=== PATIENT | female | born 1930 | race Caucasian/White ===

== ENCOUNTER 2016-12-06 12:08 | Emergency (ER) | payer MEDICARE, OTHER ==
--- NOTE | 2016-12-06 12:26 | EDM.PDOC ---
ED HPI GENERAL MEDICAL PROBLEM - General Chief Complaint: Lower Extremity Injury/Pain Stated Complaint: LEFT LEG SWEELING AND RED Time Seen by Provider: 12/06/16 12:16 Source of Information: Reports: Patient History Limitations: Reports: No Limitations - History of Present Illness INITIAL COMMENTS - FREE TEXT/NARRATIVE: 85-year-old female presents to the ED to development of a rash on her left lower leg over the last 24 hours. Patient reports that she struck her left upper tibia a few weeks ago in the corridor was born open and struck her in the leg. The area was bruised quite bad Linch Aspercreme on it and seemed to heal up okay. By history she has type 2 diabetes controlled with metformin. She has a history of congestive heart failure. She denies any cough or dyspnea. She takes Lasix 40 mg daily. Onset: Gradual (overthe last twodays.) Duration: Day(s): Location: Reports: Lower Extremity, Left Quality: Reports: Ache Severity: Moderate Improves with: Reports: None Worsens with: Reports: None Context: Denies: Activity, Exercise, Lifting, Sick Contact, Trauma, Other Associated Symptoms: Reports: Other (9i) Treatments [employer]INC[employer]AL: Reports: Other (see below) Left Lower Leg Pain Score (Numeric/FACES): 8 - Related Data Allergies Allergy/AdvReac Type Severity Reaction Status Date / Time JENNIFER Inhibitors Allergy Hives Verified 12/06/16 12:16 codeine Allergy Hallucinati Verified 12/06/16 12:16 ons Sulfa (Sulfonamide Allergy Itching Verified 12/06/16 12:16 Antibiotics) gludovance Allergy Hives Uncoded 11/11/15 09:04 Home Meds: Home Meds Doxazosin [Cardura] 2 mg PO DAILY 11/11/15 [History] Furosemide [Lasix] 40 mg PO DAILY 11/11/15 [History] Irbesartan 300 mg PO DAILY 11/11/15 [History] Naproxen Sodium [Aleve] 220 mg PO DAILY PRN 11/11/15 [History] Omeprazole Magnesium [Prilosec Otc] 20 mg PO DAILY PRN 11/11/15 [History] Potassium Gluconate 99 mg PO DAILY 11/11/15 [History] Sennosides [Senna] 8.6 mg PO DAILY PRN 11/11/15 [History] amLODIPine [Norvasc] 5 mg PO DAILY 11/11/15 [History] metFORMIN [Glucophage XR] 500 mg PO DAILY 11/11/15 [History] ALPRAZolam [Xanax] 0.5 tab PO BEDTIME 12/06/16 [History] Furosemide [Lasix] 40 mg PO DAILY #30 tablet 12/06/16 [Rx] Sertraline [Zoloft] 50 mg PO DAILY 12/06/16 [History] Past Medical History HEENT History: Reports: Impaired Vision Cardiovascular History: Reports: Heart Failure, Heart Murmur (Aortic insufficiency.), Hypertension Respiratory History: Reports: COPD Musculoskeletal History: Reports: Arthritis Endocrine/Metabolic History: Reports: Diabetes, Type II Social & Family History - Tobacco Use Smoking Status *Q: Never Smoker - Recreational Drug Use Recreational Drug Use: No - Living Situation & Occupation Living situation: Reports: ( anniversary today) Occupation: Retired Review of Systems - Review of Systems Review Of Systems: See Below Constitutional: Reports: No Symptoms Eyes: Reports: No Symptoms Ears: Reports: No Symptoms Nose: Reports: No Symptoms Mouth/Throat: Reports: No Symptoms Respiratory: Denies: Shortness of Breath, Wheezing, Pleuritic Chest Pain, Cough Cardiovascular: Reports: Edema (Intermittently her lower extremities but much worse the last 3 days in her legs.). Denies: Chest Pain, Irregular Heart Rate, Lightheadedness, Palpitations, Syncope, Other GI/Abdominal: Reports: No Symptoms Genitourinary: Reports: Other (Frequency) Musculoskeletal: Reports: Back Pain (Occasional pain pain in her back and neck.) Skin: Reports: Other (Skin rash development left lower extremity please see history of present illness) Neurological: Reports: No Symptoms Psychiatric: Reports: No Symptoms Trauma Exam - Physical Exam Exam: See Below Exam Limited By: No Limitations General Appearance: Reports: Alert, WD/WN, Anxious, Mild Distress Head: Reports: Atraumatic, Normocephalic Eyes: Bilateral Eye: Normal Inspection Throat/Mouth: Reports: Normal Inspection, Normal Lips, Normal Oropharynx Neck: Reports: Normal Alignment, Normal Inspection. Denies: Abnormal Alignment , Limited Range of Motion, Muscle Spasm, Painful Range of Motion, Spinous Processes Tender Respiratory Exam: Reports: No Respiratory Distress, Lungs Clear, Normal Breath Sounds, No Accessory Muscle Use, Chest Non-Tender Cardiovascular: Reports: Regular Rate, Rhythm, No Gallop, No Rub, Systolic Murmur (Pansystolic murmur grade 2-3/6 heard best at left lower sternal border compatible with aortic stenosis. Radiates towards the right carotid artery), Other (No pulses are palpable in the lower sternal needed to severe edema). Denies: No Edema GI/Abdominal: Reports: Normal Bowel Sounds, Soft, Non-Tender, No Organomegaly Extremities: Other (She has 4+ pitting edema of the lower extremities up to the knees bilaterally. The rash in the left lower lateral leg is erythematous and macular. It represents ruptured small vessels under the skin with blood appearing to cellulitis. The skin is thick enough that it is almost ready to start oozing clear fluid.) Neurologic: Reports: Alert, Normal Mood/Affect, Oriented x 3 Skin: Reports: Normal Color, Warm/Dry, Other (Multiple small areas of ecchymoses dorsal hands and forearms bilaterally. She reports that she does bruise very easily. Takes a baby aspirin but every third day.) - Tunica Coma Score Best Eye Response (Tunica): (4) Open Spontaneously Best Verbal Response (Tunica): (5) Oriented Best Motor Response (Topher): (6) Obeys Commands Topher Total: 15 Course - Vital Signs Last Recorded V/S: Last Vital Signs Temp 37.2 C 12/06/16 22:53 Pulse 78 12/06/16 22:53 Resp 16 12/06/16 22:53 BP 175/68 H 12/06/16 22:53 Pulse Ox 100 12/06/16 22:53 - Orders/Labs/Meds Labs: Laboratory Tests 12/06/16 12/06/16 12/06/16 Range/Units 13:06 13:06 13:06 WBC 2.91 L (3.98-10.04) K/mm3 RBC 3.25 L (3.98-5.22) M/mm3 Hgb 8.2 L (11.2-15.7) gm/L Hct 26.8 L (34.1-44.9) % MCV 82.5 (79.4-94.8) fl MCH 25.2 L (25.6-32.2) pg MCHC 30.6 L (32.2-35.5) g/dl RDW Std Deviation 48.1 H (36.4-46.3) fL Plt Count 141 L (182-369) K/mm3 MPV 9.7 (9.4-12.3) fl Neutrophils % (Manual) 73 H (40-60) % Band Neutrophils % 0 (0-10) % Lymphocytes % (Manual) 21 (20-40) % Atypical Lymphs % 0 % Monocytes % (Manual) 3 (2-10) % Eosinophils % (Manual) 3 (0.7-5.8) % Basophils % (Manual) 0 L (0.1-1.2) Platelet Estimate Adequate RBC Morph Comment Normal PT (8.0-13.0) SECONDS INR Sodium 140 (136-145) mEq/L Potassium 4.6 (3.5-5.1) mEq/L Chloride 104 (98-107) mEq/L Carbon Dioxide 25 (21-32) mEq/L Anion Gap 15.6 H (5-15) BUN 27 H (7-18) mg/dL Creatinine 1.4 H (0.55-1.02) mg/dL Est Cr Clr Drug Dosing 25.19 mL/min Estimated GFR (MDRD) 36 (>60) mL/min BUN/Creatinine Ratio 19.3 H (14-18) Glucose 98 (83-115) mg/dL Calcium 9.1 (8.5-10.1) mg/dL Total Bilirubin 0.8 (0.2-1.0) mg/dL AST 25 (15-37) U/L ALT 21 (14-59) U/L Alkaline Phosphatase 73 (46-116) U/L C-Reactive Protein < 0.2 (<1.0) mg/dL B-Natriuretic Peptide 206 H (0-100) pg/mL Total Protein 6.8 (6.4-8.2) g/dl Albumin 4.0 (3.4-5.0) g/dl Globulin 2.8 gm/dL Albumin/Globulin Ratio 1.4 (1-2) Blood Type Gel Antibody Screen Crossmatch 12/06/16 12/06/16 Range/Units 13:06 13:06 WBC (3.98-10.04) K/mm3 RBC (3.98-5.22) M/mm3 Hgb (11.2-15.7) gm/L Hct (34.1-44.9) % MCV (79.4-94.8) fl MCH (25.6-32.2) pg MCHC (32.2-35.5) g/dl RDW Std Deviation (36.4-46.3) fL Plt Count (182-369) K/mm3 MPV (9.4-12.3) fl Neutrophils % (Manual) (40-60) % Band Neutrophils % (0-10) % Lymphocytes % (Manual) (20-40) % Atypical Lymphs % % Monocytes % (Manual) (2-10) % Eosinophils % (Manual) (0.7-5.8) % Basophils % (Manual) (0.1-1.2) Platelet Estimate RBC Morph Comment PT 12.2 (8.0-13.0) SECONDS INR 1.11 Sodium (136-145) mEq/L Potassium (3.5-5.1) mEq/L Chloride (98-107) mEq/L Carbon Dioxide (21-32) mEq/L Anion Gap (5-15) BUN (7-18) mg/dL Creatinine (0.55-1.02) mg/dL Est Cr Clr Drug Dosing mL/min Estimated GFR (MDRD) (>60) mL/min BUN/Creatinine Ratio (14-18) Glucose (83-115) mg/dL Calcium (8.5-10.1) mg/dL Total Bilirubin (0.2-1.0) mg/dL AST (15-37) U/L ALT (14-59) U/L Alkaline Phosphatase (46-116) U/L C-Reactive Protein (<1.0) mg/dL B-Natriuretic Peptide (0-100) pg/mL Total Protein (6.4-8.2) g/dl Albumin (3.4-5.0) g/dl Globulin gm/dL Albumin/Globulin Ratio (1-2) Blood Type O POSITIVE Gel Antibody Screen Negative Crossmatch See Detail Meds: Medications Discontinued Medications Generic Name Dose Route Start Last Admin Trade Name Freq PRN Reason Stop Dose Admin Furosemide 40 mg 12/06/16 12:31 12/06/16 13:03 Lasix IVPUSH 12/06/16 12:32 40 mg NOW ONE Administration Furosemide 40 mg 12/06/16 20:00 12/06/16 22:24 Lasix IVPUSH 12/06/16 20:01 40 mg NOW ONE Administration Sodium Chloride Confirm 12/06/16 15:43 Normal Saline Administered 12/06/16 15:44 Dose 1,000 mls @ as directed .ROUTE .STK-MED ONE Sodium Chloride 10 ml 12/06/16 12:31 12/06/16 13:05 Saline Flush FLUSH 10 ml ASDIRECTED PRN Administration Keep Vein Open - Radiology Interpretation Free Text/Narrative:: 84-year-old female who appears younger than her stated age presents the ED due to development of the erythematous burning rash lateral aspect of her left lower leg over the last 24 hours. She reports feeling something grossly edematous for the last 3-4 days. States usually they go down when she goes to bed. She states it depends how long she is standing or sitting but they are always somewhat swollen. She denies development of any chest pain cough or shortness of breath. No recent changes in any of her medications. Diabetes is type II controlled with metformin and sugars have been good. Lungs are clear to auscultation. She does have aortic stenosis on exam grade 2-3 systolic murmur. Padding 4+ pitting edema of the lower extremities to the knees bilaterally. Plan peripheral IV lock Lasix 40 mg IV. Routine labs including cardiac markers to be done. Renal function needs to be assessed including serum potassium. - Re-Assessments/Exams Free Text/Narrative Re-Assessment/Exam: 12/06/16 14:01 labs are finally back. White count is low at 2.91 with 73% neutrophils no bands reported hemoglobin is low at 8.2 with hematocrit of 26.8. MCV is normal at 82.6. Platelets are normal 141,000. PT is 12.2 INR is 1.11. Chemistry shows a sodium of 140 potassium 4.6. Chloride 14 bicarbonate 25. Anion gap is 15.6. BUN is 27 Preddy 1.4 EGFR is 36 i.e. stage III chronic kidney disease of infection is 4.0 CRP is less than 0.2 total protein is 6.8. We therefore have a leukopenia with anemia suggesting possibility of bone marrow failure. 12/06/16 14:18 discussed the findings with the patient and she is willing to accept blood transfusion. Her is quite elderly and she needs to care for him. Therefore decision will be made as to when she might have 2 packs or 2 units of blood transfused. I will crossmatch at this time any to be done today or later this week. Further investigations will need to be done to sort out the cause of her anemia. 12/06/16 14:24 patient has arranged care of her elderly at home. She will therefore be given 2 units of packed cells as an as they become available each over 2 hours with Lasix 40 mg IV after the second unit has been infused. 12/06/16 17:29: Is about 20 minutes and her first unit of packed cells without any problems. 12/06/16 18:50 is still on her first unit of packed cells. It is just about done. I will write her discharge notes for after completing the second unit of packed RBCs and discussed case with Dr. Bernstein as it is change of shift. He will intervene only if there is any problems with the blood transfusion itself the Departure - Departure Time of Disposition: 22:50 Disposition: Home, Self-Care 01 Condition: fair Clinical Impression: Dependent edema, Acute venous stasis dermatitis of left lower extremity, CHF ( congestive heart failure), NYHA class II Anemia Qualifiers: Anemia type: unspecified type Qualified Code(s): D64.9 - Anemia, unspecified Leukopenia Qualifiers: Leukopenia type: unspecified Qualified Code(s): D72.819 - Decreased white blood cell count, unspecified - Discharge Information Prescriptions: Furosemide [Lasix] 40 mg PO DAILY #30 tablet Instructions: Blood Transfusion, [id number], Edema Referrals: Joslyn Alaniz MD [Primary Care Provider] - Forms: ED Department Discharge Additional Instructions: Evaluation in the emergency room today in regards to marked swelling of your lower extremities and development of a rash on the outer lower aspect of her left leg. The rash is secondary to broken blood vessels under the skin in the left leg due to the amount of fluid squishing the vessels in the leg. You have what we call 4+ pitting edema of the lower sternum these. Lab work identified some problems particularly with low blood count at 8.2. It also identified a low white blood cell count at 2.9. This is worrisome for possible problems with your bone marrow been able to make appropriate amount of white blood cells and red cells. You were given Lasix 40 mg intravenously twice during her stay to help clear some of the fluid from her legs which will improve her rash. He also were given 2 units of red blood cells to bring her hemoglobin up to around 10. Note normal is 14-15. You require further investigations as to why you've is low. Please follow up with her personal doctor later this week so that appropriate tests can be carried out. One make sure that you're not losing blood through the GI tract this is bone marrow not working as well as it should. You need to take Lasix medication 40 mg twice daily every morning and mid afternoon ( 3pm) to help get rid of the excess fluid in your legs. At this time it does not appear that you need a potassium supplement but your doctor will assess this as time goes on since water medications make the kidneys lose more potassium than normal. Sometimes we have to take a potassium supplement. You will likely lose close to 10 pounds over the next 7-10 days. The rash on the left leg will improve slowly as the swelling goes down. Your doctor will follow this along as well.
[2016-12-06] MEDS ORDERED: Furosemide 40 MG/4 ML VIAL IVPUSH ONE ×2 (12:31→20:00)
[2016-12-06] MEDS ORDERED: Sodium Chloride 0.9% 10 ML Syringe FLUSH PRN (12:31)
[2016-12-06] MEDS ORDERED: Sodium Chloride 0.9% 1,000 ML ONE (15:43)
[2016-12-06 22:27] VITALS: BP 175/68
== END 2016-12-06 22:30 | disposition home or self-care (01) ==
LOC: JD.ED 12:08
DX: I87.2 Venous insufficiency (chronic) (peripheral) (principal); I11.0 Hypertensive heart disease with heart failure; I50.9 Heart failure, unspecified; D64.9 Anemia, unspecified; D72.819 Decreased white blood cell count, unspecified; J44.9 Chronic obstructive pulmonary disease, unspecified; E11.9 Type 2 diabetes mellitus without complications; Z88.5 Allergy status to narcotic agent; Z88.8 Allergy status to other drugs, medicaments and biological substances; Z79.899 Other long term (current) drug therapy; Z88.2 Allergy status to sulfonamides; Z79.84 Long term (current) use of oral hypoglycemic drugs
CPT/HCPCS: 36415; 36430; 80053; 83880; 85025; 85610; 86140; 86850; 86900; 86901; 86922; 96374; 96376; 99284; J1940; J7050; P9016

== ENCOUNTER 2019-03-28 19:04 | Inpatient (IN) | payer MEDICARE, OTHER ==
[2019-03-28] MEDS ORDERED: Furosemide 40 MG/4 ML VIAL IVPUSH ONE ×2 (19:34→21:31)
--- NOTE | 2019-03-28 19:36 | EDM.PDOC ---
ED HPI GENERAL MEDICAL PROBLEM - General Chief Complaint: Respiratory Problem Stated Complaint: SHORT OF BREATH Time Seen by Provider: 03/28/19 19:25 Source of Information: Reports: Patient, Family (daughter), RN History Limitations: Reports: Respiratory Distress - History of Present Illness INITIAL COMMENTS - FREE TEXT/NARRATIVE: 88-year-old female presents to the ED deep to gradually worsening dyspnea over the last 3-4 days. Is 2 weeks post double bypass surgery with open heart surgery. She was found has significant coronary disease and was being investigated for her heart in preparation for total knee replacement. Apparently she had a bee pastry about 6 hours postoperatively. She is on metoprolol 37.5 mg once daily. She is currently not on any diuretics. Denies cough or sputum production. Some chills but no defined fever. Bringing up any sputum. It is poor. His abdomen is distended. She has been placed on oxygen over last 4-5 days and is currently on 2 L/m all times. 3 L if she does anything like it up to the bathroom and get back to bed for a period of time. Is appreciated that her legs are starting to swell a bit as well the last few days. She is not wearing compression stockings. They utilize the left greater saphenous vein for grafting. The wounds along the medial aspect of the distal thigh or losing serous fluid. Has marked orthopnea. He said to sleep sitting up the last 2 days. Onset: Gradual Onset Date: 03/24/19 Duration: Day(s):, Constant, Getting Worse Location: Reports: Chest (Shortness of breath. Marked orthopnea) Quality: Reports: Other Severity: Severe (Severe dyspnea with orthopnea) Improves with: Reports: Rest Worsens with: Reports: Movement (Any movement causes desaturation and severe) Context: Denies: Activity, Exercise ( worsening of her dyspnea.), Lifting, Sick Contact, Trauma, Other Associated Symptoms: Reports: Chest Pain (Only at the site of her mid), Cough, Fever/Chills ( sternal wound.), Loss of Appetite ( chills but no fever ), Malaise, Nausea/Vomiting, Shortness of Breath. 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: Other (see below) (Only prescribed medications.) Bilateral Back Pain Score (Numeric/FACES): 4 - Related Data Allergies Allergy/AdvReac Type Severity Reaction Status Date / Time JENNIFER Inhibitors Allergy Hives Verified 03/28/19 23:23 Sulfa (Sulfonamide Allergy Itching Verified 03/28/19 23:23 Antibiotics) codeine AdvReac Hallucinati Verified 03/28/19 23:23 ons gludovance Allergy Hives Uncoded 03/28/19 23:23 Home Meds: Home Meds Acetaminophen [Pain & Fever] 650 mg PO Q6H PRN 03/28/19 [History] Acetaminophen/HYDROcodone [[place] 325-5 MG] 1 tab PO Q4H PRN 03/28/19 [History] Aspirin [Adult Low Dose Aspirin EC] 81 mg PO DAILY 03/28/19 [History] Cephalexin [Keflex] 250 mg PO TID 03/28/19 [History] Cholecalciferol (Vitamin D3) [Vitamin D3] 5,000 unit PO DAILY 03/28/19 [History] Furosemide [Lasix] 60 mg PO DAILY 03/28/19 [History] Melatonin 3 - 9 mg PO BEDTIME PRN 03/28/19 [History] Metoprolol Tartrate [Lopressor] 37.5 mg PO Q12HR 03/28/19 [History] Nitroglycerin 0.4 mg SL ASDIRECTED PRN 03/28/19 [History] Potassium Chloride 20 meq PO Q2D 03/28/19 [History] Probiotic Advanced. 10 mg PO DAILY 03/28/19 [History] Sennosides [Senna] 8.6 - 17.2 mg PO DAILY PRN 03/28/19 [History] amLODIPine [Norvasc] 5 mg PO DAILY 03/28/19 [History] guaiFENesin [Mucinex] 600 mg PO DAILY PRN 03/28/19 [History] Past Medical History HEENT History: Reports: Impaired Vision Cardiovascular History: Reports: Bypass ( 2 weeks ago in [place] CAD ( Underwent double bypass i.e. CABG), Heart Failure, Heart Murmur, Hypertension Respiratory History: Reports: COPD Musculoskeletal History: Reports: Arthritis Endocrine/Metabolic History: Reports: Diabetes, Type II - Past Surgical History GI Surgical History: Reports: Appendectomy, Cholecystectomy Social & Family History - Family History HEENT: Reports: Impaired Vision Cardiac: Reports: High Cholesterol, Hypertension Endocrine/Metabolic: Reports: Diabetes, type II Oncologic: Reports: Colon - Tobacco Use Smoking Status *Q: Never Smoker Second Hand Smoke Exposure: No - Caffeine Use Caffeine Use: Reports: None - Recreational Drug Use Recreational Drug Use: No - Living Situation & Occupation Living situation: Reports: (40th wedding anniversary today) Occupation: Retired ED ROS GENERAL - Review of Systems Review Of Systems: See Below Constitutional: Reports: Chills, Malaise, Weakness, Fatigue, Decreased Appetite , Weight Loss. Denies: Fever HEENT: Reports: Glasses Respiratory: Reports: Shortness of Breath, Cough. Denies: Wheezing, Pleuritic Chest Pain Cardiovascular: Reports: Chest Pain (Nonproductive central chest pain at the site of her mid sternotomy wound.) Endocrine: Reports: Fatigue GI/Abdominal: Reports: Constipation, Decreased Appetite. Denies: Abdominal Pain : Reports: Frequency, Other (Some incontinence both stress and urgency components.) Musculoskeletal: Reports: Joint Pain (Bilateral knee pain. Scheduled for total knee replacement which he heals up from her heart surgery.), Other Skin: Reports: Bruising (Has bad hips low back pain and occasional neck pain and shoulder pain. Ecchymotic areas upper extremities from IV sticks. Currently only on aspirin.) Neurological: Reports: No Symptoms Psychiatric: Reports: No Symptoms Hematologic/Lymphatic: Reports: No Symptoms ED EXAM, GENERAL - Physical Exam Exam: See Below Exam Limited By: No Limitations General Appearance: Alert, WD/WN, Moderate Distress (Moderate respiratory distress.), Other (Vitals show temperature 36.8 with a pulse of 77. Respiratory is 23-28/m BP 146/78 sats 95% on 2 L.) Eye Exam: Bilateral Eye: Other (Mild blepharal pallor bilaterally.) Throat/Mouth: Normal Inspection, Normal Lips, Normal Oropharynx, Other Head: Atraumatic, Normocephalic (Tongue is mildly dry and coated.) Neck: Normal Inspection, Limited Range of Motion (Decreased range of motion.), Tender Lateral. No: Supple Respiratory/Chest: No Accessory Muscle Use (S3 muscle use.), Respiratory Distress (Tachypnea 25-26/m.), Decreased Breath Sounds (Decreased breath sounds to the lower 30% of lung [place] bilaterally with dullness to percussion on both sides suggesting bilateral pleural effusions.), Rales (Few rales appreciated in bases.), Other (Midline sternotomy wound appears to be healing regularly.). No : Lungs Clear, Normal Breath Sounds, Wheezing Cardiovascular: Regular Rate, Rhythm, No Gallop, No Murmur, No Rub, Other ( Trace edema both lower extremities). No: Normal Peripheral Pulses, No Edema Peripheral Pulses: 1+: Posterior Tibial (L), Posterior Tibial (R), Dorsalis Pedis (L), Dorsalis Pedis (R), 2+: Carotid (L), Carotid (R) GI/Abdominal: Soft, Non-Tender, No Organomegaly, Distended (Compatible with aerophagia.), Abnormal Bowel Sounds Back Exam: Other (Mild kyphosis thoracic spine.) Extremities: Non-Tender, Pedal Edema. No: No Pedal Edema Neurological: Alert, Oriented (Trace pitting edema around the ankles. 1+ only), CN II-XII Intact, Normal Cognition, No Motor/Sensory Deficits Psychiatric: Anxious, Other (Working hard to breathe.) Skin Exam: Warm, Dry, Intact, Normal Color, Ecchymosis (Patches of ecchymoses both upper extremities from recent IV sticks. Also noted on the abdominal wall.) EKG INTERPRETATION EKG Date: 03/28/19 Time: 19:41 Rhythm: NSR Rate (Beats/Min): 72 [place]: RAD-Right [place] Deviation (145) QRS: Other (Patient has a right bundle branch block pattern in the left posterior fascicular block pattern. I 2 fascicles out of 3. Was decreased voltage throughout the precordial leads. There is a Q-wave in V1 and V2 consider posterior wall infarct.) ST-T: Other (T-wave inversion in V3 to V6 cannot rule out ischemia.) QT: Prolonged (Mildly prolonged) EKG Interpretation Comments: Abnormal ECG Course - Vital Signs Last Recorded V/S: Last Vital Signs Temp 36.3 C 03/29/19 04:00 Pulse 68 03/28/19 21:42 Resp 21 H 03/29/19 04:00 BP 133/60 03/29/19 04:00 Pulse Ox 90 L 03/29/19 04:20 - Orders/Labs/Meds Orders: Active Orders 24 hr Category Date Time Status Admission Status [Patient Status] [ADT] Routine ADT 03/28/19 21:29 Active Antiembolic Devices [RC] PER UNIT ROUTINE Care 03/28/19 21:43 Active Cardiac Monitoring [RC] CONTINUOUS Care 03/28/19 21:42 Active EKG Documentation Completion [RC] STAT Care 03/28/19 19:31 Active Height and Weight [RC] 04 Care 03/28/19 21:41 Active Intake and Output [RC] 04,16 Care 03/28/19 21:42 Active Oxygen Therapy [RC] PRN Care 03/28/19 21:41 Active Pulse Oximetry [RC] CONTINUOUS Care 03/28/19 21:43 Active RT Aerosol Therapy [RC] ASDIRECTED Care 03/28/19 21:44 Active Up With Assistance [RC] ASDIRECTED Care 03/28/19 21:41 Active VTE/DVT Education [RC] QSHIFT Care 03/28/19 21:41 Active Vital Signs [RC] Q4HR Care 03/28/19 21:41 Active Consult to Case Management/Guidance Adviser [CONS] Cons 03/28/19 21:41 Active Routine Consult to Spiritual Care [CONS] Routine Cons 03/28/19 21:41 Active OT Evaluation and Treatment [CONS] Routine Cons 03/28/19 21:41 Active PT Evaluation and Treatment [CONS] Routine Cons 03/28/19 21:41 Active Respiratory Care Assess and Treatment [CONS] Routine Cons 03/28/19 21:41 Active Consistent Carbohydrate Diet [DIET] Diet 03/28/19 Breakfast Active Heart Healthy Diet [DIET] Diet 03/28/19 Breakfast Active Chest 1V Frontal [CR] Stat Exams 03/28/19 19:31 Taken A1C [GLYCOSYLATED HEMOGLOBIN,HGBA1C] [CHEM] AM Lab 03/29/19 05:11 Ordered BASIC METABOLIC PANEL,BMP [CHEM] AM Lab 03/29/19 05:11 Ordered BASIC METABOLIC PANEL,BMP [CHEM] AM Lab 03/30/19 05:11 Ordered BASIC METABOLIC PANEL,BMP [CHEM] AM Lab 03/31/19 05:11 Ordered BASIC METABOLIC PANEL,BMP [CHEM] AM Lab 04/01/19 05:11 Ordered BASIC METABOLIC PANEL,BMP [CHEM] AM Lab 04/02/19 05:11 Ordered C-REACTIVE PROTEIN [CHEM] AM Lab 03/29/19 05:11 Ordered C-REACTIVE PROTEIN [CHEM] AM Lab 03/30/19 05:11 Ordered C-REACTIVE PROTEIN [CHEM] AM Lab 03/31/19 05:11 Ordered C-REACTIVE PROTEIN [CHEM] AM Lab 04/01/19 05:11 Ordered C-REACTIVE PROTEIN [CHEM] AM Lab 04/02/19 05:11 Ordered CBC WITH AUTO DIFF [HEME] AM Lab 03/29/19 05:11 Ordered CBC WITH AUTO DIFF [HEME] AM Lab 03/30/19 05:11 Ordered CBC WITH AUTO DIFF [HEME] AM Lab 03/31/19 05:11 Ordered CBC WITH AUTO DIFF [HEME] AM Lab 04/01/19 05:11 Ordered CBC WITH AUTO DIFF [HEME] AM Lab 04/02/19 05:11 Ordered CULTURE BLOOD [BC] Stat Lab 03/28/19 19:35 Ordered CULTURE BLOOD [BC] Stat Lab 03/28/19 19:35 Ordered CULTURE SPUTUM + SMEAR [RM] Stat Lab 03/28/19 21:41 Ordered MAGNESIUM [CHEM] AM Lab 03/29/19 05:11 Ordered MAGNESIUM [CHEM] AM Lab 03/30/19 05:11 Ordered MAGNESIUM [CHEM] AM Lab 03/31/19 05:11 Ordered MAGNESIUM [CHEM] AM Lab 04/01/19 05:11 Ordered MAGNESIUM [CHEM] AM Lab 04/02/19 05:11 Ordered Acetaminophen [Tylenol] Med 03/28/19 21:28 Active 650 mg PO Q6H PRN Acetaminophen/HYDROcodone [[place] 325-5 MG] Med 03/28/19 21:28 Active 1 tab PO Q4H PRN Albuterol/Ipratropium [DuoNeb 3.0-0.5 MG/3 ML] Med 03/28/19 21:41 Active 3 ml NEB Q4H PRN Azithromycin [Zithromax] Med 03/29/19 09:00 Active 250 mg PO DAILY Bisacodyl [Dulcolax] Med 03/28/19 21:41 Active 5 mg PO DAILY PRN Cholecalciferol (Vitamin D3) [Vitamin D3] Med 03/29/19 09:00 Active 5,000 unit PO DAILY Docusate Sodium [Colace] Med 03/28/19 21:41 Active 100 mg PO BID PRN Docusate Sodium/Sennosides [Senna Plus] Med 03/28/19 21:41 Active 1 tab PO BID PRN Furosemide [Lasix] Med 03/29/19 09:00 Active 60 mg PO DAILY HYDROmorphone [Dilaudid] Med 03/28/19 21:41 Active 0.25 mg IVPUSH Q2H PRN LORazepam [Ativan] Med 03/28/19 21:40 Active 0.5 mg IVPUSH Q4H PRN LORazepam [Ativan] Med 03/28/19 21:40 Active 2 mg IVPUSH Q4H PRN Melatonin Med 03/28/19 21:45 Active 3 - 9 mg PO BEDTIME PRN Metoprolol Tartrate [Lopressor] Med 03/29/19 09:00 Active 37.5 mg PO Q12HR Nitroglycerin [Nitrostat] Med 03/28/19 21:28 Active 0.4 mg SL ASDIRECTED PRN Ondansetron [Zofran] Med 03/28/19 21:41 Active 4 mg IV Q6H PRN Pantoprazole [ProTONIX IV] Med 03/29/19 07:30 Active 40 mg IV Q12H Polyethylene Glycol 3350 [MiraLAX] Med 03/28/19 21:41 Active 17 gm PO DAILY PRN Potassium Chloride [Klor-Con M20] Med 04/02/19 21:30 Active 20 meq PO Q2D Promethazine [Phenergan] 6.25 mg Med 03/28/19 21:41 Active Sodium Chloride 0.9% [Normal Saline] 50 ml IV Q6H Saccharomyces Boulardii [Florastor] Med 03/29/19 09:00 Active 250 mg PO DAILY Sennosides [Senna] Med 03/28/19 21:28 Active 8.6 - 17.2 mg PO DAILY PRN Sodium Chloride 0.9% [Saline Flush] Med 03/28/19 19:33 Active 10 ml FLUSH ASDIRECTED PRN Temazepam [Restoril] Med 03/28/19 21:39 Active 7.5 mg PO BEDTIME PRN amLODIPine [Norvasc] Med 03/29/19 09:00 Active 5 mg PO DAILY cephALEXin [Keflex] Med 03/28/19 21:45 Active 250 mg PO TID guaiFENesin [Mucinex] Med 03/28/19 21:28 Active 600 mg PO DAILY PRN Blood Culture x2 Reflex Set [OM.PC] Stat Oth 03/28/19 19:34 Ordered Peripheral IV Insertion Adult [OM.PC] Stat Oth 03/28/19 19:33 Ordered Sequential Compression Device [OM.PC] Per Unit Routine Oth 03/28/19 21:43 Ordered Resuscitation Status Routine Resus Stat 03/28/19 21:41 Ordered Medication Orders Acetaminophen (Tylenol) 650 mg PO Q6H PRN PRN Reason: Pain (mild 1-3) Hydrocodone Bitart/Acetaminophen ([place] 325-5 Mg) 1 tab PO Q4H PRN PRN Reason: Pain (moderate 4-6) Albuterol/Ipratropium (Duoneb 3.0-0.5 Mg/3 Ml) 3 ml NEB Q4H PRN PRN Reason: Shortness Of Breath/wheezing Last Admin: 03/29/19 04:20 Dose: 3 ml Amlodipine Besylate (Norvasc) 5 mg PO DAILY [facility] Azithromycin (Zithromax) 250 mg PO DAILY [facility] Bisacodyl (Dulcolax) 5 mg PO DAILY PRN PRN Reason: Constipation Cephalexin (Keflex) 250 mg PO TID [facility] Last Admin: 03/28/19 22:45 Dose: 250 mg Cholecalciferol (Vitamin D3) 5,000 unit PO DAILY [facility] Docusate Sodium (Colace) 100 mg PO BID PRN PRN Reason: Constipation Furosemide (Lasix) 60 mg PO DAILY [facility] Guaifenesin (Mucinex) 600 mg PO DAILY PRN PRN Reason: Cough Hydromorphone HCl (Dilaudid) 0.25 mg IVPUSH Q2H PRN PRN Reason: Pain (severe 7-10) Promethazine HCl 6.25 mg/ (Sodium Chloride) 50.25 mls @ 100 mls/hr IV Q6H PRN PRN Reason: Nausea/Vomiting Lorazepam (Ativan) 2 mg IVPUSH Q4H PRN PRN Reason: Seizures Lorazepam (Ativan) 0.5 mg IVPUSH Q4H PRN; Protocol PRN Reason: Anxiety Last Admin: 03/28/19 22:46 Dose: 0.5 mg Melatonin (Melatonin) 3 - 9 mg PO BEDTIME PRN PRN Reason: Sleep Last Admin: 03/29/19 00:28 Dose: 9 mg Metoprolol Tartrate (Lopressor) 37.5 mg PO Q12HR [facility] Morphine Sulfate (Morphine) 0.5 mg IVPUSH Q4H PRN PRN Reason: Dyspnea Last Admin: 03/29/19 00:45 Dose: 0.5 mg Nitroglycerin (Nitrostat) 0.4 mg SL ASDIRECTED PRN PRN Reason: Chest Pain Ondansetron HCl (Zofran) 4 mg IV Q6H PRN PRN Reason: Nausea/Vomiting Pantoprazole Sodium (Protonix Iv) 40 mg IV Q12H [facility] Polyethylene Glycol (Miralax) 17 gm PO DAILY PRN PRN Reason: Constipation Potassium Chloride (Klor-Con M20) 20 meq PO Q2D [facility] Saccharomyces Boulardii (Florastor) 250 mg PO DAILY [facility] Senna (Senna) 8.6 - 17.2 mg PO DAILY PRN PRN Reason: Constipation Senna/Docusate Sodium (Senna Plus) 1 tab PO BID PRN PRN Reason: Constipation Sodium Chloride (Saline Flush) 10 ml FLUSH ASDIRECTED PRN PRN Reason: Keep Vein Open Last Admin: 03/28/19 20:04 Dose: 10 ml Temazepam (Restoril) 7.5 mg PO BEDTIME PRN PRN Reason: Insomnia Last Admin: 03/28/19 22:45 Dose: 7.5 mg Labs: Laboratory Tests 03/28/19 03/28/19 03/28/19 Range/Units 19:42 19:42 19:42 WBC 7.61 (3.98-10.04) K/mm3 RBC 3.76 L (3.98-5.22) M/mm3 Hgb 10.8 L (11.2-15.7) gm/L Hct 32.8 L (34.1-44.9) % MCV 87.2 D (79.4-94.8) fl MCH 28.7 (25.6-32.2) pg MCHC 32.9 (32.2-35.5) g/dl RDW Std Deviation 44.3 (36.4-46.3) fL Plt Count 348 D (182-369) K/mm3 MPV 8.7 L (9.4-12.3) fl Neutrophils % (Manual) 90 H (40-60) % Band Neutrophils % 0 (0-10) % Lymphocytes % (Manual) 4 L (20-40) % Atypical Lymphs % 0 % Monocytes % (Manual) 5 (2-10) % Eosinophils % (Manual) 1 (0.7-5.8) % Basophils % (Manual) 0 L (0.1-1.2) Platelet Estimate Adequate Anisocytosis 1+ slight PT 12.4 H (9.7-12.0) SECONDS INR 1.15 APTT 28 (22-31) SECONDS Sodium 134 L (136-145) mEq/L Potassium 5.2 H (3.5-5.1) mEq/L Chloride 97 L (98-107) mEq/L Carbon Dioxide 27 (21-32) mEq/L Anion Gap 15.2 H (5-15) BUN 81 H D (7-18) mg/dL Creatinine 1.9 H (0.55-1.02) mg/dL Est Cr Clr Drug Dosing 17.58 mL/min Estimated GFR (MDRD) 25 (>60) mL/min BUN/Creatinine Ratio 42.6 H (14-18) Glucose 150 H (83-115) mg/dL Lactic Acid (0.4-2.0) mmol/L Calcium 8.5 (8.5-10.1) mg/dL Magnesium 2.8 H (1.8-2.4) mg/dl Total Bilirubin 0.9 (0.2-1.0) mg/dL AST 25 (15-37) U/L ALT 17 (14-59) U/L Alkaline Phosphatase 112 (46-116) U/L CK-MB (CK-2) 3.7 H (0-3.6) ng/ml Troponin I 0.021 (0.00-0.056) ng/mL C-Reactive Protein 11.8 H* (<1.0) mg/dL NT-Pro-B Natriuret Pep (0-450) pg/mL Total Protein 6.8 (6.4-8.2) g/dl Albumin 2.9 L (3.4-5.0) g/dl Globulin 3.9 gm/dL Albumin/Globulin Ratio 0.7 L (1-2) Blood Type Gel Antibody Screen 03/28/19 03/28/19 03/28/19 Range/Units 19:42 19:42 19:42 WBC (3.98-10.04) K/mm3 RBC (3.98-5.22) M/mm3 Hgb (11.2-15.7) gm/L Hct (34.1-44.9) % MCV (79.4-94.8) fl MCH (25.6-32.2) pg MCHC (32.2-35.5) g/dl RDW Std Deviation (36.4-46.3) fL Plt Count (182-369) K/mm3 MPV (9.4-12.3) fl Neutrophils % (Manual) (40-60) % Band Neutrophils % (0-10) % Lymphocytes % (Manual) (20-40) % Atypical Lymphs % % Monocytes % (Manual) (2-10) % Eosinophils % (Manual) (0.7-5.8) % Basophils % (Manual) (0.1-1.2) Platelet Estimate Anisocytosis PT (9.7-12.0) SECONDS INR APTT (22-31) SECONDS Sodium (136-145) mEq/L Potassium (3.5-5.1) mEq/L Chloride (98-107) mEq/L Carbon Dioxide (21-32) mEq/L Anion Gap (5-15) BUN (7-18) mg/dL Creatinine (0.55-1.02) mg/dL Est Cr Clr Drug Dosing mL/min Estimated GFR (MDRD) (>60) mL/min BUN/Creatinine Ratio (14-18) Glucose (83-115) mg/dL Lactic Acid 1.0 (0.4-2.0) mmol/L Calcium (8.5-10.1) mg/dL Magnesium (1.8-2.4) mg/dl Total Bilirubin (0.2-1.0) mg/dL AST (15-37) U/L ALT (14-59) U/L Alkaline Phosphatase (46-116) U/L CK-MB (CK-2) (0-3.6) ng/ml Troponin I (0.00-0.056) ng/mL C-Reactive Protein (<1.0) mg/dL NT-Pro-B Natriuret Pep 9032 H (0-450) pg/mL Total Protein (6.4-8.2) g/dl Albumin (3.4-5.0) g/dl Globulin gm/dL Albumin/Globulin Ratio (1-2) Blood Type O POSITIVE Gel Antibody Screen Negative Meds: Medications Generic Name Dose Route Start Last Admin Trade Name Freq PRN Reason Stop Dose Admin Acetaminophen 650 mg 03/28/19 21:28 Tylenol PO Q6H PRN Pain (mild 1-3) Hydrocodone Bitart/Acetaminophen 1 tab 03/28/19 21:28 [place] 325-5 Mg PO Q4H PRN Pain (moderate 4-6) Albuterol/Ipratropium 3 ml 03/28/19 21:41 03/29/19 04:20 Duoneb 3.0-0.5 Mg/3 Ml NEB 3 ml Q4H PRN Administration Shortness Of Breath/wheezing Amlodipine Besylate 5 mg 03/29/19 09:00 Norvasc PO DAILY [facility] Azithromycin 250 mg 03/29/19 09:00 Zithromax PO DAILY [facility] Bisacodyl 5 mg 03/28/19 21:41 Dulcolax PO DAILY PRN Constipation Cephalexin 250 mg 03/28/19 21:45 03/28/19 22:45 Keflex PO 250 mg TID [facility] Administration Cholecalciferol 5,000 unit 03/29/19 09:00 Vitamin D3 PO DAILY [facility] Docusate Sodium 100 mg 03/28/19 21:41 Colace PO BID PRN Constipation Furosemide 60 mg 03/29/19 09:00 Lasix PO DAILY [facility] Guaifenesin 600 mg 03/28/19 21:28 Mucinex PO DAILY PRN Cough Hydromorphone HCl 0.25 mg 03/28/19 21:41 Dilaudid IVPUSH Q2H PRN Pain (severe 7-10) Promethazine HCl 6.25 mg/ 50.25 mls @ 100 mls/hr 03/28/19 21:41 Sodium Chloride IV Q6H PRN Nausea/Vomiting Lorazepam 2 mg 03/28/19 21:40 Ativan IVPUSH Q4H PRN Seizures Lorazepam 0.5 mg 03/28/19 21:40 03/28/19 22:46 Ativan IVPUSH 0.5 mg Q4H PRN Administration Anxiety Protocol Melatonin 3 - 9 mg 03/28/19 21:45 03/29/19 00:28 Melatonin PO 9 mg BEDTIME PRN Administration Sleep Metoprolol Tartrate 37.5 mg 03/29/19 09:00 Lopressor PO Q12HR [facility] Morphine Sulfate 0.5 mg 03/28/19 22:03 03/29/19 00:45 Morphine IVPUSH 0.5 mg Q4H PRN Administration Dyspnea Nitroglycerin 0.4 mg 03/28/19 21:28 Nitrostat SL ASDIRECTED PRN Chest Pain Ondansetron HCl 4 mg 03/28/19 21:41 Zofran IV Q6H PRN Nausea/Vomiting Pantoprazole Sodium 40 mg 03/29/19 07:30 Protonix Iv IV Q12H [facility] Polyethylene Glycol 17 gm 03/28/19 21:41 Miralax PO DAILY PRN Constipation Potassium Chloride 20 meq 04/02/19 21:30 Klor-Con M20 PO Q2D [facility] Saccharomyces Boulardii 250 mg 03/29/19 09:00 Florastor PO DAILY [facility] Senna 8.6 - 17.2 mg 03/28/19 21:28 Senna PO DAILY PRN Constipation Senna/Docusate Sodium 1 tab 03/28/19 21:41 Senna Plus PO BID PRN Constipation Sodium Chloride 10 ml 03/28/19 19:33 03/28/19 20:04 Saline Flush FLUSH 10 ml ASDIRECTED PRN Administration Keep Vein Open Temazepam 7.5 mg 03/28/19 21:39 03/28/19 22:45 Restoril PO 7.5 mg BEDTIME PRN Administration Insomnia Discontinued Medications Generic Name Dose Route Start Last Admin Trade Name Freq PRN Reason Stop Dose Admin Furosemide 40 mg 03/28/19 19:34 03/28/19 20:02 Lasix IVPUSH 03/28/19 19:35 40 mg NOW ONE Administration Furosemide 60 mg 03/28/19 21:31 03/28/19 22:08 Lasix IVPUSH 03/28/19 21:32 60 mg NOW ONE Administration Azithromycin 500 mg/ Sodium 250 mls @ 250 mls/hr 03/28/19 22:00 03/28/19 23: 08 Chloride IV 03/28/19 22:59 250 mls/hr ONETIME ONE Administration Non-Formulary Medication 20 meq 03/28/19 21:30 03/28/19 23:13 Potassium Chloride [Potassium Chloride] PO Not Given Q2D [facility] - Radiology Interpretation Free Text/Narrative:: 88-year-old female presents to the ED with gradually worsening dyspnea over the last 4-5 days. She is 2 weeks post double bypass i.e. cabbage. No back bowels were repaired. This was done in preparation for total knee replacement. Clinically she has bilateral pleural effusions marked respiratory distress. Currently on 2 L of oxygen all times increased to 3 L/m at this time. Plan peripheral IV lock. Routine labs to include blood cultures 2. She looks quite pallid. Type and screen will be done as well. Given Lasix 40 mg IV. - Re-Assessments/Exams Free Text/Narrative Re-Assessment/Exam: 03/28/19: 20:10: Portable chest x-ray reveals bilateral pleural effusions taking up at least 40% of both lower lung [place]. Moderate cardiomegaly. 03/28/19 20:49 Labs are back. Total white count is 7.61. Neutrophils identified. Hemoglobin 10.8 with hematocrit of 32.8. I'll count 348,000. Slight shows 1+ anisocytosis. PT is 12.4 with an INR 1.15. PTT is 28. Sodium slightly low at 134. Potassium borderline high at 5.2. Chloride is 97 with a bicarbonate of 27. Anion gap is 15.2. BUN is 81 markedly elevated and creatinine is 1.9. GFR is 25. Stage 4 chronic kidney disease glucose is 150. Lactic acid 1.0. Calcium 8.5. Magnesium high at 2.8. Liver function normal. CK-MB fraction 3.7. Troponin I is less than 0.021. C-reactive protein is 11.8. BNP is 9032. Total protein 6.8 with an albumin fraction of 2.9. Urinalysis is pending.. Some concern with her left shift that she may need antibiotics for possible urinary tract infection or occult pneumonia. Also due to markedly elevated CRP at 11.8. Clinically she is not febrile. 03/28/19 21:32 Case discussed with documentation spec hospitalist Dr. Pino and he will admit the patient to the intensive care unit. She will likely need consultation with surgery in regards to possible tapping of her bilateral pleural effusions to improve her oxygenation and dyspnea. He has not voided at all since given 40 mg of Lasix IV. We'll give her 60 mg of Lasix IV now. Departure - Departure Time of Disposition: 22:20 Disposition: Admitted As Inpatient 68 Condition: Poor Clinical Impression: Bilateral pleural effusion, Status post aorto-coronary artery bypass graft, Chronic renal insufficiency, stage IV (severe), Hypoxemia Acute exacerbation of congestive heart failure Qualifiers: Heart failure type: diastolic Qualified Code(s): I50.33 - Acute on chronic diastolic (congestive) heart failure Anemia Qualifiers: Anemia type: unspecified type Qualified Code(s): D64.9 - Anemia, unspecified - Discharge Information - My Orders Last 24 Hours: My Active Orders 03/28/19 19:31 EKG Documentation Completion [RC] STAT Chest 1V Frontal [CR] Stat 03/28/19 19:33 Sodium Chloride 0.9% [Saline Flush] 10 ml FLUSH ASDIRECTED PRN Peripheral IV Insertion Adult [OM.PC] Stat 03/28/19 19:34 Blood Culture x2 Reflex Set [OM.PC] Stat 03/28/19 19:35 CULTURE BLOOD [BC] Stat CULTURE BLOOD [BC] Stat 03/28/19 21:29 Admission Status [Patient Status] [ADT] Routine - Assessment/Plan Last 24 Hours: My Active Orders 03/28/19 19:31 EKG Documentation Completion [RC] STAT Chest 1V Frontal [CR] Stat 03/28/19 19:33 Sodium Chloride 0.9% [Saline Flush] 10 ml FLUSH ASDIRECTED PRN Peripheral IV Insertion Adult [OM.PC] Stat 03/28/19 19:34 Blood Culture x2 Reflex Set [OM.PC] Stat 03/28/19 19:35 CULTURE BLOOD [BC] Stat CULTURE BLOOD [BC] Stat 03/28/19 21:29 Admission Status [Patient Status] [ADT] Routine
[2019-03-28] MEDS: Sodium Chloride 0.9% 10 ML Syringe FLUSH PRN (20:04)
[2019-03-28] MEDS ORDERED: Nitroglycerin 0.4 MG Tab.SL SL PRN (21:28)
[2019-03-28] MEDS ORDERED: Acetaminophen 325 MG Tab PO PRN (21:28)
[2019-03-28] MEDS ORDERED: Sennosides 8.6 MG Tab PO PRN (21:28)
[2019-03-28] MEDS ORDERED: Non-Formulary Medication 1 Each (Potassium Chloride [Potassium Chloride] 20 MEQ) PO SCH (21:30)
[2019-03-28] MEDS ORDERED: LORazepam 2 MG/ML SDV IVPUSH PRN (21:40)
[2019-03-28] MEDS ORDERED: Docusate Sodium 100 MG Cap PO PRN (21:41)
[2019-03-28] MEDS ORDERED: Polyethylene Glycol 3350 Powder 17 GM Packet PO PRN (21:41)
[2019-03-28] MEDS ORDERED: Ondansetron 4 MG/2 ML SDV IV PRN (21:41)
[2019-03-28] MEDS ORDERED: Promethazine 6.25 MG in Sodium Chloride 0.9% 50 ML IV PRN (21:41)
[2019-03-28] MEDS ORDERED: Bisacodyl 5 MG Tab PO PRN (21:41)
[2019-03-28] MEDS ORDERED: Azithromycin 500 MG in Sodium Chloride 0.9% 250 ML IV ONE (22:00)
--- NOTE | 2019-03-28 22:14 | PCM.SN ---
- Free Text/Narrative Note: Patient seen and examined with family at bedside in ED. Showed her CXR and we went over treatment plan for tomorrow. Explained risk and benefits associated with thoracentesis and she agreed to undergo with the procedure.
[2019-03-28] MEDS: Cephalexin 250 MG Cap PO SCH (22:45)
[2019-03-28] MEDS: Temazepam 7.5 MG Cap PO PRN (22:45)
[2019-03-28] MEDS: LORazepam 2 MG/ML SDV IVPUSH PRN (22:46)
[2019-03-29] MEDS: Melatonin 3 MG Tab PO PRN (00:28)
[2019-03-29] MEDS: Morphine 2 MG/ML Syringe IVPUSH PRN ×3 (00:45→23:40)
[2019-03-29] MEDS: Albuterol/Ipratropium 3.0-0.5 MG/3 ML Neb Soln NEB PRN (04:20)
[2019-03-29 05:42] LABS: HEMOGLOBIN A1C 5.7 % (4.50-6.20)
[2019-03-29] MEDS: LORazepam 2 MG/ML SDV IVPUSH PRN ×3 (06:23→09:07)
--- NOTE | 2019-03-29 06:27 | CR ---
Chest: Portable view of the chest was obtained. Comparison: No prior chest x-ray is available. Bilateral pleural effusions appear to be present. Heart does not appear enlarged. Pulmonary vessels are felt to be minimally congested. Previous sternotomy is noted. Surgical clips are seen in left upper abdomen as well as surgical clips from prior cholecystectomy. Impression: 1. Bilateral pleural effusions as well as slight pulmonary vascular congestion. 2. Other findings which are believed to be incidental. Diagnostic code #3
--- NOTE | 2019-03-29 06:42 | PCM.HP.2 ---
H&P History of Present Illness - General Date of Service: 03/29/19 Admit Problem/Dx: Admission Diagnosis/Problem Admission Diagnosis/Problem Pleural effusion Source of Information: Patient, Family, Old Records, Provider, RN Notes Reviewed , Significant Other History Limitations: Reports: Respiratory Distress - History of Present Illness Initial Comments - Free Text/Narative: This is an 88 yo elderly white female with past medical hx/o HF with Unknown EF , HTN, OA/DJD, Normocytic Normochromic Anemia, and DM2, diet controlled who comes in for worsening shortness of breath associated with dyspnea and peripheral edema over the past few days. She carries a hx/o HF with unknown EF. She was on Lasix 40 mg po daily but recently increased to 60 mg po daily. She has hx/o COPD per ED notes but patient's niece refutes the diagnosis. She is currently on 2L NC all times. She states she has been sleeping sitting up for the past couple of days. Patient recently underwent 2 Vessel CABG in [place] about 2 weeks ago (Distal Circumflex and SANCHEZ to LAD). She was doing just fine up on the past few days. She does not remember if she had a 2D echo done during her procedure. Her initial work up in ED showed a CBC remarkable for RBC of 3.76, Hgb of 10.8, Hct of 32.8, MPV of 8.7 and Neutrophils of 90%. Her Chemistry was significant for NA of 134, K of 5.2, Cl of 97, AG of 15.2, BUN of 81, Cr of 1.9, BS of 150, Mg of 2.8, CKMB of 3.7, CRP of 11.8, ProBNP of 9032 and Albumin of 2.9. Her UA was negative for UTI. Her CXR showed moderate size b/l pleural effusions with pulmonary congestion. Patient was admitted overnight primarily for medical management of heart failure and pleural effusions. Bilateral Back Pain Score (Numeric/FACES): 4 - Related Data Allergies/Adverse Reactions: Allergies Allergy/AdvReac Type Severity Reaction Status Date / Time JENNIFER Inhibitors Allergy Hives Verified 03/28/19 23:23 Sulfa (Sulfonamide Allergy Itching Verified 03/28/19 23:23 Antibiotics) codeine AdvReac Hallucinati Verified 03/28/19 23:23 ons gludovance Allergy Hives Uncoded 03/28/19 23:23 Home Medications: Home Meds Acetaminophen [Pain & Fever] 650 mg PO Q6H PRN 03/28/19 [History] Acetaminophen/HYDROcodone [[place] 325-5 MG] 1 tab PO Q4H PRN 03/28/19 [History] Aspirin [Adult Low Dose Aspirin EC] 81 mg PO DAILY 03/28/19 [History] Cephalexin [Keflex] 250 mg PO TID 03/28/19 [History] Cholecalciferol (Vitamin D3) [Vitamin D3] 5,000 unit PO DAILY 03/28/19 [History] Furosemide [Lasix] 60 mg PO DAILY 03/28/19 [History] Melatonin 3 - 9 mg PO BEDTIME PRN 03/28/19 [History] Metoprolol Tartrate [Lopressor] 37.5 mg PO Q12HR 03/28/19 [History] Nitroglycerin 0.4 mg SL ASDIRECTED PRN 03/28/19 [History] Potassium Chloride 20 meq PO Q2D 03/28/19 [History] Probiotic Advanced. 10 mg PO DAILY 03/28/19 [History] Sennosides [Senna] 8.6 - 17.2 mg PO DAILY PRN 03/28/19 [History] amLODIPine [Norvasc] 5 mg PO DAILY 03/28/19 [History] guaiFENesin [Mucinex] 600 mg PO DAILY PRN 03/28/19 [History] Past Medical History HEENT History: Reports: Impaired Vision Cardiovascular History: Reports: Bypass ( 2 weeks ago in [facility]), CAD ( Underwent double bypass i.e. CABG), Heart Failure, Heart Murmur, Hypertension Respiratory History: Reports: COPD [employer] [place] History: Reports: Musculoskeletal History: Reports: Arthritis Endocrine/Metabolic History: Reports: Diabetes, Type II Hematologic History: Reports: Blood Transfusion(s) - Infectious Disease History Infectious Disease History: Reports: Chicken Pox, Measles, Mumps - Past Surgical History GI Surgical History: Reports: Appendectomy, Cholecystectomy Social & Family History - Family History Family Medical History: Noncontributory HEENT: Reports: Impaired Vision Cardiac: Reports: High Cholesterol, Hypertension Endocrine/Metabolic: Reports: Diabetes, type II Oncologic: Reports: Colon - Tobacco Use Smoking Status *Q: Never Smoker Used Tobacco, but Quit: Yes Month/Year Tobacco Last Used: unsure Second Hand Smoke Exposure: No - Caffeine Use Caffeine Use: Reports: None - Recreational Drug Use Recreational Drug Use: No - Living Situation & Occupation Living situation: Reports: (40th wedding anniversary today) Occupation: Retired H&P Review of Systems - Review of Systems: Review Of Systems: ROS reveals no pertinent complaints other than HPI. Exam - Exam Exam: See Below - Vital Signs Vital Signs: Last Vital Signs Temp 36.3 C 03/29/19 04:00 Pulse 68 03/28/19 21:42 Resp 21 H 03/29/19 04:00 BP 133/60 03/29/19 04:00 Pulse Ox 90 L 03/29/19 04:20 Weight: 67.495 kg - Exam Quality Assessment: Supplemental Oxygen General: Alert, Oriented, Moderate Distress HEENT: Conjunctiva Clear, EACs Clear, EOMI, Hearing Intact, Mucosa Moist & [place] , Nares Patent, Normal Nasal Septum, Posterior Pharynx Clear, Pupils Reactive, TMs Clear Neck: Supple, Trachea Midline Lungs: Decreased Breath Sounds, Crackles, Other (dullness to percussion and tachypneic) Cardiovascular: Regular Rate, Regular Rhythm GI/Abdominal Exam: Normal Bowel Sounds, Soft, Non-Tender, No Organomegaly, No Abnormal Bruit, No Mass, Pelvis Stable (Female) Exam: Deferred Rectal (Female) Exam: Deferred Back Exam: Normal Inspection, Decreased Range of Motion Extremities: Normal Inspection, Normal Range of Motion, Non-Tender, Pedal Edema , Other (2+ pitting edema on b/l lower extremity). No: Rory's Sign, Leg Pain, Increased Warmth, Mottled, Pallor, Redness Skin: Warm, Dry, Intact, Ecchymosis (on upper exteemities) Skin Alteration Location (Drawings Not To Scale): 1 - midline surgical wound on anterior thorax 2 - ecchymosis and surgical wound Neuro Extensive - Mental Status: Oriented x3, Normal Cognition, Memory Intact Neuro Extensive - Motor, Sensory, Reflexes: CN II-XII Intact (not appropriate due to respiratory distress), Abnormal Gait Psychiatric: Alert, Normal Affect, Normal Mood Physical Exam Comments:: She rested fairly well overnight from 1-4 AM this morning per night nurse. However she appeared to be in and out of atrial fibrillation with controlled rate. Her most recent EKG showed sinus rhythm with PACs and RB3. - Patient Data Lab Results Last 24 hrs: Laboratory Results - last 24 hr 03/28/19 03/28/19 03/28/19 Range/Units 19:42 19:42 19:42 WBC 7.61 (3.98-10.04) K/mm3 RBC 3.76 L (3.98-5.22) M/mm3 Hgb 10.8 L (11.2-15.7) gm/L Hct 32.8 L (34.1-44.9) % MCV 87.2 D (79.4-94.8) fl MCH 28.7 (25.6-32.2) pg MCHC 32.9 (32.2-35.5) g/dl RDW Std Deviation 44.3 (36.4-46.3) fL Plt Count 348 D (182-369) K/mm3 MPV 8.7 L (9.4-12.3) fl Neut % (Auto) (34.0-71.1) % Lymph % (Auto) (19.3-51.7) % [place] % (Auto) (4.7-12.5) % Eos % (Auto) (0.7-5.8) Baso % (Auto) (0.1-1.2) % Neut # (Auto) (1.56-6.13) K/mm3 Lymph # (Auto) (1.18-3.74) K/mm3 [place] # (Auto) (0.24-0.36) K/mm3 Eos # (Auto) (0.04-0.36) K/mm3 Baso # (Auto) (0.01-0.08) K/mm3 Neutrophils % (Manual) 90 H (40-60) % Band Neutrophils % 0 (0-10) % Lymphocytes % (Manual) 4 L (20-40) % Atypical Lymphs % 0 % Monocytes % (Manual) 5 (2-10) % Eosinophils % (Manual) 1 (0.7-5.8) % Basophils % (Manual) 0 L (0.1-1.2) Manual Slide Review Platelet Estimate Adequate Anisocytosis 1+ slight PT 12.4 H (9.7-12.0) SECONDS INR 1.15 APTT 28 (22-31) SECONDS Sodium 134 L (136-145) mEq/L Potassium 5.2 H (3.5-5.1) mEq/L Chloride 97 L (98-107) mEq/L Carbon Dioxide 27 (21-32) mEq/L Anion Gap 15.2 H (5-15) BUN 81 H D (7-18) mg/dL Creatinine 1.9 H (0.55-1.02) mg/dL Est Cr Clr Drug Dosing 17.58 mL/min Estimated GFR (MDRD) 25 (>60) mL/min BUN/Creatinine Ratio 42.6 H (14-18) Glucose 150 H (83-115) mg/dL Hemoglobin A1c (4.50-6.20) % Lactic Acid (0.4-2.0) mmol/L Calcium 8.5 (8.5-10.1) mg/dL Magnesium 2.8 H (1.8-2.4) mg/dl Total Bilirubin 0.9 (0.2-1.0) mg/dL AST 25 (15-37) U/L ALT 17 (14-59) U/L Alkaline Phosphatase 112 (46-116) U/L CK-MB (CK-2) 3.7 H (0-3.6) ng/ml Troponin I 0.021 (0.00-0.056) ng/mL C-Reactive Protein 11.8 H* (<1.0) mg/dL NT-Pro-B Natriuret Pep (0-450) pg/mL Total Protein 6.8 (6.4-8.2) g/dl Albumin 2.9 L (3.4-5.0) g/dl Globulin 3.9 gm/dL Albumin/Globulin Ratio 0.7 L (1-2) Urine Color (Yellow) Urine Appearance (Clear) Urine pH (5.0-8.0) Ur Specific [place] (1.005-1.030) Urine Protein (Negative) Urine Glucose (UA) (Negative) Urine Ketones (Negative) Urine Occult Blood (Negative) Urine Nitrite (Negative) Urine Bilirubin (Negative) Urine Urobilinogen (0.2-1.0) Ur Leukocyte Esterase (Negative) Urine RBC (0-5) /hpf Urine WBC (0-5) /hpf Ur Squamous Epith Cells (0-5) /hpf Ur Renal Epithelial Cell (0-5) /hpf Amorphous Sediment (NOT SEEN) /hpf Urine Bacteria (FEW) /hpf Hyaline Casts (0-5) /lpf Urine Mucus (FEW) /hpf MRSA (PCR) Blood Type Gel Antibody Screen 03/28/19 03/28/19 03/28/19 Range/Units 19:42 19:42 19:42 WBC (3.98-10.04) K/mm3 RBC (3.98-5.22) M/mm3 Hgb (11.2-15.7) gm/L Hct (34.1-44.9) % MCV (79.4-94.8) fl MCH (25.6-32.2) pg MCHC (32.2-35.5) g/dl RDW Std Deviation (36.4-46.3) fL Plt Count (182-369) K/mm3 MPV (9.4-12.3) fl Neut % (Auto) (34.0-71.1) % Lymph % (Auto) (19.3-51.7) % [place] % (Auto) (4.7-12.5) % Eos % (Auto) (0.7-5.8) Baso % (Auto) (0.1-1.2) % Neut # (Auto) (1.56-6.13) K/mm3 Lymph # (Auto) (1.18-3.74) K/mm3 [place] # (Auto) (0.24-0.36) K/mm3 Eos # (Auto) (0.04-0.36) K/mm3 Baso # (Auto) (0.01-0.08) K/mm3 Neutrophils % (Manual) (40-60) % Band Neutrophils % (0-10) % Lymphocytes % (Manual) (20-40) % Atypical Lymphs % % Monocytes % (Manual) (2-10) % Eosinophils % (Manual) (0.7-5.8) % Basophils % (Manual) (0.1-1.2) Manual Slide Review Platelet Estimate Anisocytosis PT (9.7-12.0) SECONDS INR APTT (22-31) SECONDS Sodium (136-145) mEq/L Potassium (3.5-5.1) mEq/L Chloride (98-107) mEq/L Carbon Dioxide (21-32) mEq/L Anion Gap (5-15) BUN (7-18) mg/dL Creatinine (0.55-1.02) mg/dL Est Cr Clr Drug Dosing mL/min Estimated GFR (MDRD) (>60) mL/min BUN/Creatinine Ratio (14-18) Glucose (83-115) mg/dL Hemoglobin A1c (4.50-6.20) % Lactic Acid 1.0 (0.4-2.0) mmol/L Calcium (8.5-10.1) mg/dL Magnesium (1.8-2.4) mg/dl Total Bilirubin (0.2-1.0) mg/dL AST (15-37) U/L ALT (14-59) U/L Alkaline Phosphatase (46-116) U/L CK-MB (CK-2) (0-3.6) ng/ml Troponin I (0.00-0.056) ng/mL C-Reactive Protein (<1.0) mg/dL NT-Pro-B Natriuret Pep 9032 H (0-450) pg/mL Total Protein (6.4-8.2) g/dl Albumin (3.4-5.0) g/dl Globulin gm/dL Albumin/Globulin Ratio (1-2) Urine Color (Yellow) Urine Appearance (Clear) Urine pH (5.0-8.0) Ur Specific [place] (1.005-1.030) Urine Protein (Negative) Urine Glucose (UA) (Negative) Urine Ketones (Negative) Urine Occult Blood (Negative) Urine Nitrite (Negative) Urine Bilirubin (Negative) Urine Urobilinogen (0.2-1.0) Ur Leukocyte Esterase (Negative) Urine RBC (0-5) /hpf Urine WBC (0-5) /hpf Ur Squamous Epith Cells (0-5) /hpf Ur Renal Epithelial Cell (0-5) /hpf Amorphous Sediment (NOT SEEN) /hpf Urine Bacteria (FEW) /hpf Hyaline Casts (0-5) /lpf Urine Mucus (FEW) /hpf MRSA (PCR) Blood Type O POSITIVE Gel Antibody Screen Negative 03/28/19 03/29/19 03/29/19 Range/Units 23:00 00:20 04:35 WBC 7.88 (3.98-10.04) K/mm3 RBC 3.60 L (3.98-5.22) M/mm3 Hgb 10.2 L (11.2-15.7) gm/L Hct 32.0 L (34.1-44.9) % MCV 88.9 (79.4-94.8) fl MCH 28.3 (25.6-32.2) pg MCHC 31.9 L (32.2-35.5) g/dl RDW Std Deviation 45.6 (36.4-46.3) fL Plt Count 330 (182-369) K/mm3 MPV 8.8 L (9.4-12.3) fl Neut % (Auto) 81.1 H (34.0-71.1) % Lymph % (Auto) 8.0 L (19.3-51.7) % [place] % (Auto) 7.2 (4.7-12.5) % Eos % (Auto) 3.0 (0.7-5.8) Baso % (Auto) 0.3 (0.1-1.2) % Neut # (Auto) 6.39 H (1.56-6.13) K/mm3 Lymph # (Auto) 0.63 L (1.18-3.74) K/mm3 [place] # (Auto) 0.57 H (0.24-0.36) K/mm3 Eos # (Auto) 0.24 (0.04-0.36) K/mm3 Baso # (Auto) 0.02 (0.01-0.08) K/mm3 Neutrophils % (Manual) (40-60) % Band Neutrophils % (0-10) % Lymphocytes % (Manual) (20-40) % Atypical Lymphs % % Monocytes % (Manual) (2-10) % Eosinophils % (Manual) (0.7-5.8) % Basophils % (Manual) (0.1-1.2) Manual Slide Review Abnormal smear Platelet Estimate Anisocytosis PT (9.7-12.0) SECONDS INR APTT (22-31) SECONDS Sodium (136-145) mEq/L Potassium (3.5-5.1) mEq/L Chloride (98-107) mEq/L Carbon Dioxide (21-32) mEq/L Anion Gap (5-15) BUN (7-18) mg/dL Creatinine (0.55-1.02) mg/dL Est Cr Clr Drug Dosing mL/min Estimated GFR (MDRD) (>60) mL/min BUN/Creatinine Ratio (14-18) Glucose (83-115) mg/dL Hemoglobin A1c (4.50-6.20) % Lactic Acid (0.4-2.0) mmol/L Calcium (8.5-10.1) mg/dL Magnesium (1.8-2.4) mg/dl Total Bilirubin (0.2-1.0) mg/dL AST (15-37) U/L ALT (14-59) U/L Alkaline Phosphatase (46-116) U/L CK-MB (CK-2) (0-3.6) ng/ml Troponin I (0.00-0.056) ng/mL C-Reactive Protein (<1.0) mg/dL NT-Pro-B Natriuret Pep (0-450) pg/mL Total Protein (6.4-8.2) g/dl Albumin (3.4-5.0) g/dl Globulin gm/dL Albumin/Globulin Ratio (1-2) Urine Color Yellow (Yellow) Urine Appearance Clear (Clear) Urine pH 5.5 (5.0-8.0) Ur Specific [place] 1.015 (1.005-1.030) Urine Protein Negative (Negative) Urine Glucose (UA) Negative (Negative) Urine Ketones Negative (Negative) Urine Occult Blood Negative (Negative) Urine Nitrite Negative (Negative) Urine Bilirubin Negative (Negative) Urine Urobilinogen 0.2 (0.2-1.0) Ur Leukocyte Esterase Trace H (Negative) Urine RBC 0-5 (0-5) /hpf Urine WBC 0-5 (0-5) /hpf Ur Squamous Epith Cells 0-5 (0-5) /hpf Ur Renal Epithelial Cell 0-5 (0-5) /hpf Amorphous Sediment Few H (NOT SEEN) /hpf Urine Bacteria Moderate H (FEW) /hpf Hyaline Casts 5-10 H (0-5) /lpf Urine Mucus Few (FEW) /hpf MRSA (PCR) Negative Blood Type Gel Antibody Screen 03/29/19 03/29/19 Range/Units 04:35 04:35 WBC (3.98-10.04) K/mm3 RBC (3.98-5.22) M/mm3 Hgb (11.2-15.7) gm/L Hct (34.1-44.9) % MCV (79.4-94.8) fl MCH (25.6-32.2) pg MCHC (32.2-35.5) g/dl RDW Std Deviation (36.4-46.3) fL Plt Count (182-369) K/mm3 MPV (9.4-12.3) fl Neut % (Auto) (34.0-71.1) % Lymph % (Auto) (19.3-51.7) % [place] % (Auto) (4.7-12.5) % Eos % (Auto) (0.7-5.8) Baso % (Auto) (0.1-1.2) % Neut # (Auto) (1.56-6.13) K/mm3 Lymph # (Auto) (1.18-3.74) K/mm3 [place] # (Auto) (0.24-0.36) K/mm3 Eos # (Auto) (0.04-0.36) K/mm3 Baso # (Auto) (0.01-0.08) K/mm3 Neutrophils % (Manual) (40-60) % Band Neutrophils % (0-10) % Lymphocytes % (Manual) (20-40) % Atypical Lymphs % % Monocytes % (Manual) (2-10) % Eosinophils % (Manual) (0.7-5.8) % Basophils % (Manual) (0.1-1.2) Manual Slide Review Platelet Estimate Anisocytosis PT (9.7-12.0) SECONDS INR APTT (22-31) SECONDS Sodium 134 L (136-145) mEq/L Potassium 5.2 H (3.5-5.1) mEq/L Chloride 98 (98-107) mEq/L Carbon Dioxide 28 (21-32) mEq/L Anion Gap 13.2 (5-15) BUN 80 H (7-18) mg/dL Creatinine 1.9 H (0.55-1.02) mg/dL Est Cr Clr Drug Dosing 17.58 mL/min Estimated GFR (MDRD) 25 (>60) mL/min BUN/Creatinine Ratio 42.1 H (14-18) Glucose 133 H (83-115) mg/dL Hemoglobin A1c 5.70 (4.50-6.20) % Lactic Acid (0.4-2.0) mmol/L Calcium 8.4 L (8.5-10.1) mg/dL Magnesium 2.8 H (1.8-2.4) mg/dl Total Bilirubin (0.2-1.0) mg/dL AST (15-37) U/L ALT (14-59) U/L Alkaline Phosphatase (46-116) U/L CK-MB (CK-2) (0-3.6) ng/ml Troponin I (0.00-0.056) ng/mL C-Reactive Protein 10.7 H* (<1.0) mg/dL NT-Pro-B Natriuret Pep (0-450) pg/mL Total Protein (6.4-8.2) g/dl Albumin (3.4-5.0) g/dl Globulin gm/dL Albumin/Globulin Ratio (1-2) Urine Color (Yellow) Urine Appearance (Clear) Urine pH (5.0-8.0) Ur Specific [place] (1.005-1.030) Urine Protein (Negative) Urine Glucose (UA) (Negative) Urine Ketones (Negative) Urine Occult Blood (Negative) Urine Nitrite (Negative) Urine Bilirubin (Negative) Urine Urobilinogen (0.2-1.0) Ur Leukocyte Esterase (Negative) Urine RBC (0-5) /hpf Urine WBC (0-5) /hpf Ur Squamous Epith Cells (0-5) /hpf Ur Renal Epithelial Cell (0-5) /hpf Amorphous Sediment (NOT SEEN) /hpf Urine Bacteria (FEW) /hpf Hyaline Casts (0-5) /lpf Urine Mucus (FEW) /hpf MRSA (PCR) Blood Type Gel Antibody Screen Result Diagrams: 03/30/19 06:44 03/30/19 06:44 EKG INTERPRETATION EKG Date: 03/29/19 Time: 05:08 Rhythm: Other (Sinus rhythm) Rate (Beats/Min): 73 QRS: RBBB EKG Interpretation Comments: PACs Problem List Initiated/Reviewed/Updated: Yes Orders Last 24hrs: Active Orders 24 hr Category Date Time Status Admission Status [Patient Status] [ADT] Routine ADT 03/28/19 21:29 Active Admission Status [Patient Status] [ADT] Routine ADT 03/28/19 22:16 Active Antiembolic Devices [RC] PER UNIT ROUTINE Care 03/28/19 21:43 Active Cardiac Monitoring [RC] CONTINUOUS Care 03/28/19 21:42 Active EKG 12 Lead [EKG Documentation Completion] [RC] STAT Care 03/29/19 05:05 Active EKG Documentation Completion [RC] STAT Care 03/28/19 19:31 Active Height and Weight [RC] 04 Care 03/28/19 21:41 Active Intake and Output [RC] 04,16 Care 03/28/19 21:42 Active Oxygen Therapy [RC] PRN Care 03/28/19 21:41 Active Pulse Oximetry [RC] CONTINUOUS Care 03/28/19 21:43 Active RT Aerosol Therapy [RC] ASDIRECTED Care 03/28/19 21:44 Active Up With Assistance [RC] ASDIRECTED Care 03/28/19 21:41 Active VTE/DVT Education [RC] QSHIFT Care 03/28/19 21:41 Active Vital Signs [RC] Q4HR Care 03/28/19 21:41 Active Consult to Case Management/M[employer] Stitcher [CONS] Cons 03/28/19 21:41 Active Routine Consult to Spiritual Care [CONS] Routine Cons 03/28/19 21:41 Active OT Evaluation and Treatment [CONS] Routine Cons 03/28/19 21:41 Active PT Evaluation and Treatment [CONS] Routine Cons 03/28/19 21:41 Active Respiratory Care Assess and Treatment [CONS] Routine Cons 03/28/19 21:41 Active Consistent Carbohydrate Diet [DIET] Diet 03/28/19 Breakfast Active Heart Healthy Diet [DIET] Diet 03/28/19 Breakfast Active BASIC METABOLIC PANEL,BMP [CHEM] AM Lab 03/30/19 05:11 Ordered BASIC METABOLIC PANEL,BMP [CHEM] AM Lab 03/31/19 05:11 Ordered BASIC METABOLIC PANEL,BMP [CHEM] AM Lab 04/01/19 05:11 Ordered BASIC METABOLIC PANEL,BMP [CHEM] AM Lab 04/02/19 05:11 Ordered C-REACTIVE PROTEIN [CHEM] AM Lab 03/30/19 05:11 Ordered C-REACTIVE PROTEIN [CHEM] AM Lab 03/31/19 05:11 Ordered C-REACTIVE PROTEIN [CHEM] AM Lab 04/01/19 05:11 Ordered C-REACTIVE PROTEIN [CHEM] AM Lab 04/02/19 05:11 Ordered CBC WITH AUTO DIFF [HEME] AM Lab 03/30/19 05:11 Ordered CBC WITH AUTO DIFF [HEME] AM Lab 03/31/19 05:11 Ordered CBC WITH AUTO DIFF [HEME] AM Lab 04/01/19 05:11 Ordered CBC WITH AUTO DIFF [HEME] AM Lab 04/02/19 05:11 Ordered CULTURE BLOOD [BC] Stat Lab 03/28/19 19:50 Received CULTURE BLOOD [BC] Stat Lab 03/28/19 20:05 Received CULTURE SPUTUM + SMEAR [RM] Stat Lab 03/28/19 21:41 Ordered MAGNESIUM [CHEM] AM Lab 03/30/19 05:11 Ordered MAGNESIUM [CHEM] AM Lab 03/31/19 05:11 Ordered MAGNESIUM [CHEM] AM Lab 04/01/19 05:11 Ordered MAGNESIUM [CHEM] AM Lab 04/02/19 05:11 Ordered Acetaminophen [Tylenol] Med 03/28/19 21:28 Active 650 mg PO Q6H PRN Acetaminophen/HYDROcodone [[place] 325-5 MG] Med 03/28/19 21:28 Active 1 tab PO Q4H PRN Albuterol/Ipratropium [DuoNeb 3.0-0.5 MG/3 ML] Med 03/28/19 21:41 Active 3 ml NEB Q4H PRN Azithromycin [Zithromax] Med 03/29/19 09:00 Active 250 mg PO DAILY Bisacodyl [Dulcolax] Med 03/28/19 21:41 Active 5 mg PO DAILY PRN Cholecalciferol (Vitamin D3) [Vitamin D3] Med 03/29/19 09:00 Active 5,000 unit PO DAILY Docusate Sodium [Colace] Med 03/28/19 21:41 Active 100 mg PO BID PRN Docusate Sodium/Sennosides [Senna Plus] Med 03/28/19 21:41 Active 1 tab PO BID PRN Furosemide [Lasix] Med 03/29/19 09:00 Active 60 mg PO DAILY HYDROmorphone [Dilaudid] Med 03/28/19 21:41 Active 0.25 mg IVPUSH Q2H PRN LORazepam [Ativan] Med 03/28/19 21:40 Active 0.5 mg IVPUSH Q4H PRN LORazepam [Ativan] Med 03/28/19 21:40 Active 2 mg IVPUSH Q4H PRN Melatonin Med 03/28/19 21:45 Active 3 - 9 mg PO BEDTIME PRN Metoprolol Tartrate [Lopressor] Med 03/29/19 09:00 Active 37.5 mg PO Q12HR Morphine Med 03/28/19 22:03 Active 0.5 mg IVPUSH Q4H PRN Nitroglycerin [Nitrostat] Med 03/28/19 21:28 Active 0.4 mg SL ASDIRECTED PRN Ondansetron [Zofran] Med 03/28/19 21:41 Active 4 mg IV Q6H PRN Pantoprazole [ProTONIX IV] Med 03/29/19 07:30 Active 40 mg IV Q12H Polyethylene Glycol 3350 [MiraLAX] Med 03/28/19 21:41 Active 17 gm PO DAILY PRN Potassium Chloride [Klor-Con M20] Med 04/02/19 21:30 Active 20 meq PO Q2D Promethazine [Phenergan] 6.25 mg Med 03/28/19 21:41 Active Sodium Chloride 0.9% [Normal Saline] 50 ml IV Q6H Saccharomyces Boulardii [Florastor] Med 03/29/19 09:00 Active 250 mg PO DAILY Sennosides [Senna] Med 03/28/19 21:28 Active 8.6 - 17.2 mg PO DAILY PRN Sodium Chloride 0.9% [Saline Flush] Med 03/28/19 19:33 Active 10 ml FLUSH ASDIRECTED PRN Temazepam [Restoril] Med 03/28/19 21:39 Active 7.5 mg PO BEDTIME PRN amLODIPine [Norvasc] Med 03/29/19 09:00 Active 5 mg PO DAILY cephALEXin [Keflex] Med 03/28/19 21:45 Active 250 mg PO TID guaiFENesin [Mucinex] Med 03/28/19 21:28 Active 600 mg PO DAILY PRN Blood Culture x2 Reflex Set [OM.PC] Stat Oth 03/28/19 19:34 Ordered Peripheral IV Insertion Adult [OM.PC] Stat Oth 03/28/19 19:33 Ordered Sequential Compression Device [OM.PC] Per Unit Routine Oth 03/28/19 21:43 Ordered Resuscitation Status Routine Resus Stat 03/28/19 21:41 Ordered Medication Orders Acetaminophen (Tylenol) 650 mg PO Q6H PRN PRN Reason: Pain (mild 1-3) Hydrocodone Bitart/Acetaminophen ([place] 325-5 Mg) 1 tab PO Q4H PRN PRN Reason: Pain (moderate 4-6) Albuterol/Ipratropium (Duoneb 3.0-0.5 Mg/3 Ml) 3 ml NEB Q4H PRN PRN Reason: Shortness Of Breath/wheezing Last Admin: 03/29/19 04:20 Dose: 3 ml Amlodipine Besylate (Norvasc) 5 mg PO DAILY [facility] Azithromycin (Zithromax) 250 mg PO DAILY [facility] Bisacodyl (Dulcolax) 5 mg PO DAILY PRN PRN Reason: Constipation Cephalexin (Keflex) 250 mg PO TID [facility] Last Admin: 03/28/19 22:45 Dose: 250 mg Cholecalciferol (Vitamin D3) 5,000 unit PO DAILY [facility] Docusate Sodium (Colace) 100 mg PO BID PRN PRN Reason: Constipation Furosemide (Lasix) 60 mg PO DAILY [facility] Guaifenesin (Mucinex) 600 mg PO DAILY PRN PRN Reason: Cough Hydromorphone HCl (Dilaudid) 0.25 mg IVPUSH Q2H PRN PRN Reason: Pain (severe 7-10) Promethazine HCl 6.25 mg/ (Sodium Chloride) 50.25 mls @ 100 mls/hr IV Q6H PRN PRN Reason: Nausea/Vomiting Lorazepam (Ativan) 2 mg IVPUSH Q4H PRN PRN Reason: Seizures Lorazepam (Ativan) 0.5 mg IVPUSH Q4H PRN; Protocol PRN Reason: Anxiety Last Admin: 03/29/19 06:23 Dose: 0.5 mg Admin: 03/28/19 22:46 Dose: 0.5 mg Melatonin (Melatonin) 3 - 9 mg PO BEDTIME PRN PRN Reason: Sleep Last Admin: 03/29/19 00:28 Dose: 9 mg Metoprolol Tartrate (Lopressor) 37.5 mg PO Q12HR [facility] Morphine Sulfate (Morphine) 0.5 mg IVPUSH Q4H PRN PRN Reason: Dyspnea Last Admin: 03/29/19 00:45 Dose: 0.5 mg Nitroglycerin (Nitrostat) 0.4 mg SL ASDIRECTED PRN PRN Reason: Chest Pain Ondansetron HCl (Zofran) 4 mg IV Q6H PRN PRN Reason: Nausea/Vomiting Pantoprazole Sodium (Protonix Iv) 40 mg IV Q12H [facility] Last Admin: 03/29/19 06:32 Dose: 40 mg Polyethylene Glycol (Miralax) 17 gm PO DAILY PRN PRN Reason: Constipation Potassium Chloride (Klor-Con M20) 20 meq PO Q2D [facility] Saccharomyces Boulardii (Florastor) 250 mg PO DAILY [facility] Senna (Senna) 8.6 - 17.2 mg PO DAILY PRN PRN Reason: Constipation Senna/Docusate Sodium (Senna Plus) 1 tab PO BID PRN PRN Reason: Constipation Sodium Chloride (Saline Flush) 10 ml FLUSH ASDIRECTED PRN PRN Reason: Keep Vein Open Last Admin: 03/28/19 20:04 Dose: 10 ml Temazepam (Restoril) 7.5 mg PO BEDTIME PRN PRN Reason: Insomnia Last Admin: 03/28/19 22:45 Dose: 7.5 mg Assessment/Plan Comment:: Assessment: Acute: Respiratory Distress/Dyspnea - 2/2 worsening pleural effusions - Her lasix dose was just increased to 60 mg po daily from 40 mg daily - Supplemental O2 and PRN NIPPV B/L Pleural Effusions - CXR shows moderate size b/l pleural effusions - Received IV lasix in ED last night - Offered thoracentesis-scheduled for this morning CHF - Carries a hx/o HF with Unknown EF - Significant lower extremity edema and b/l pleural effusion - CXR shows moderate size b/l pleural effusions - ProBNP of 9032 - Heat Failure regimen: diuretics, salt/fluid restriction, daily weight check and Is/Os - Goal is to get her to dry weight CAD S/p 2 Vessel CABG - 2 weeks ago in [place] (Distal Circumflex and SANCHEZ to LAD) - Continue ASA and Metoprolol - ASA diet Mild Hypokalemia - K of 5.2 - Takes K supplement - Hold supplement and continue to monitor Hyperglycemia with DM2 - BS 130-150s - Diet controlled - A1C is 5.70 - Monitor BS level Chronic: HF with Unknown EF, HTN, OA/DJD, Normocytic Normochromic Anemia, and DM2, diet controlled Plan: Admitted overnight in ICU Resume Home Meds Heart Failure Regimen Received adequate IV lasix in ED last night RT/PT/OT to assess and treat IS as directed 2D echo and Thoracentesis for today Fall Precautions SW/CM for d/c planning Code status: full Additional orders as above Prognosis guarded
[2019-03-29] MEDS ORDERED: Pantoprazole 40 MG Vial IV SCH (07:30)
[2019-03-29] MEDS: HYDROmorphone 0.5 MG/0.5 ML Syringe IVPUSH PRN (08:18)
[2019-03-29] MEDS ORDERED: Azithromycin 250 MG Tab PO SCH (09:00)
[2019-03-29] MEDS ORDERED: Lidocaine 1% 10 ML MDV INJECT ONE (09:00)
[2019-03-29] MEDS ORDERED: LORazepam 2 MG/ML SDV IVPUSH ONE (09:25)
--- NOTE | 2019-03-29 09:28 | PCM.PRNOTE ---
- Free Text/Narrative Note: DATE OF PROCEDURE: 03/29/2019 PREOPERATIVE DIAGNOSIS: B/L Moderately Large Pleural effusion POSTOPERATIVE DIAGNOSIS: B/L Moderately Large Pleural effusion PROCEDURE PERFORMED: US Guided Therapeutic Thoracentesis DESCRIPTION OF PROCEDURE: After informed consent was obtained, signed, the patient had ultrasound localization in the left hemithorax. The patient was sterilely prepped and topical lidocaine was induced. Stab incision was made and a thoracentesis catheter was inserted and 1100 mL of hemorrhagic fluid was obtained without difficulty. The patient tolerated the procedure well. Postprocedure chest x-ray is pending.
[2019-03-29] MEDS: Furosemide 40 MG Tab PO SCH (10:04)
[2019-03-29] MEDS: Saccharomyces Boulardii (Probiotic) 250 MG Cap PO SCH (10:04)
[2019-03-29] MEDS: Metoprolol Tartrate 25 MG Tab PO SCH ×2 (10:04→20:06)
[2019-03-29] MEDS: Cephalexin 250 MG Cap PO SCH ×3 (10:05→20:06)
[2019-03-29] MEDS: Cholecalciferol (Vitamin D3) 5,000 UNIT Tab PO SCH (10:05)
[2019-03-29] MEDS: amLODIPine 5 MG Tab PO SCH (10:05)
--- NOTE | 2019-03-29 11:45 | CR ---
Chest: Frontal view of the chest was obtained. Comparison: Prior chest x-ray of 03/28/19. Continuing right sided pleural effusion is seen. Left pleural effusion has diminished in amount compatible with recent thoracentesis. Right-sided pleural effusion is moderate amount. Pulmonary vessels are minimally congested. Right basilar atelectasis is seen on a compressive basis. Heart is enlarged. Previous sternotomy is noted. Impression: 1. Moderate right-sided pleural effusion with right basilar atelectasis. 2. Interval thoracentesis within the left chest with no pneumothorax being seen. 3. Stable cardiomegaly and mild stable pulmonary vascular congestion. Diagnostic code #3
--- NOTE | 2019-03-29 12:30 | PCM.SN ---
- Free Text/Narrative Note: 2D echo done on 01/10/2019: LVEF of 65-70%. Grade II Diastolic Dysfunction. Severely Dilated Left Atrium. Calcific Degenerative Aortic Stenosis. Mild- Moderate MV Regurgitation and Small Pericardiac Effusion. Her post thoracentesis x-ray report read as interval thoracentesis within the left chest with no pneumothorax. Moderate right sided pleural effusion with right basilar atelectasis.
[2019-03-29] MEDS: guaiFENesin/Dextromethorphan 100-10 MG/5 ML Soln 5 ML Cup PO PRN ×2 (15:44→21:28)
[2019-03-29] MEDS: guaiFENesin 600 MG Tab.ER PO PRN (20:06)
[2019-03-29] MEDS: Pantoprazole 40 MG Tab.CR PO SCH (21:27)
[2019-03-29] MEDS: Temazepam 7.5 MG Cap PO PRN (21:28)
[2019-03-29] MEDS: Sodium Chloride 0.9% 10 ML Syringe FLUSH PRN (23:45)
[2019-03-30] MEDS: LORazepam 2 MG/ML SDV IVPUSH PRN ×2 (02:15→11:23)
[2019-03-30] MEDS: Albuterol/Ipratropium 3.0-0.5 MG/3 ML Neb Soln NEB PRN (06:26)
--- NOTE | 2019-03-30 08:09 | PCM.PN ---
- General Info Date of Service: 03/30/19 Admission Dx/Problem (Free Text): Admission Diagnosis/Problem Admission Diagnosis/Problem Pleural effusion Subjective Update: Follow Up Functional Status: Reports: Pain Controlled, Tolerating Diet, Urinating. Denies : New Symptoms - Review of Systems General: Reports: Fatigue. Denies: Fever, Chills HEENT: Denies: No Symptoms Pulmonary: Reports: Shortness of Breath. Denies: Pleuritic Chest Pain, Cough, Sputum Cardiovascular: Denies: Chest Pain, Dyspnea on Exertion, Lightheadedness Gastrointestinal: Denies: Abdominal Pain, Nausea, Vomiting Genitourinary: Reports: No Symptoms Musculoskeletal: Reports: Back Pain Skin: Reports: Bruising Neurological: Reports: Difficulty Walking, Weakness, Gait Disturbance. Denies: Confusion Psychiatric: Denies: Confusion, Depression, Mood Lability, Anxiety, Agitation, Cravings, Hallucinations, Suicidal Ideation Systems Review Comment:: She had an uneventful night. She rested well and no complaints. - Patient Data Vitals - Most Recent: Last Vital Signs Temp 36.4 C 03/30/19 04:00 Pulse 68 03/29/19 20:06 Resp 16 03/30/19 05:00 BP 118/50 L 03/30/19 04:00 Pulse Ox 92 L 03/30/19 06:28 Weight - Most Recent: 66.95 kg I&O - Last 24 Hours: Intake & Output 03/29/19 03/30/19 03/30/19 22:59 06:59 14:59 Intake Total 200 400 Output Total 800 500 Balance -600 -100 Lab Results Last 24 Hours: Laboratory Results - last 24 hr 03/30/19 03/30/19 Range/Units 06:44 06:44 WBC 7.01 (3.98-10.04) K/mm3 RBC 3.77 L (3.98-5.22) M/mm3 Hgb 10.7 L (11.2-15.7) gm/L Hct 33.5 L (34.1-44.9) % MCV 88.9 (79.4-94.8) fl MCH 28.4 (25.6-32.2) pg MCHC 31.9 L (32.2-35.5) g/dl RDW Std Deviation 45.5 (36.4-46.3) fL Plt Count 313 (182-369) K/mm3 MPV 8.6 L (9.4-12.3) fl Neut % (Auto) 75.8 H (34.0-71.1) % Lymph % (Auto) 9.1 L (19.3-51.7) % [place] % (Auto) 8.3 (4.7-12.5) % Eos % (Auto) 6.4 H (0.7-5.8) Baso % (Auto) 0.1 (0.1-1.2) % Neut # (Auto) 5.31 (1.56-6.13) K/mm3 Lymph # (Auto) 0.64 L (1.18-3.74) K/mm3 [place] # (Auto) 0.58 H (0.24-0.36) K/mm3 Eos # (Auto) 0.45 H (0.04-0.36) K/mm3 Baso # (Auto) 0.01 (0.01-0.08) K/mm3 Manual Slide Review Abnormal smear Sodium 137 (136-145) mEq/L Potassium 5.1 (3.5-5.1) mEq/L Chloride 100 (98-107) mEq/L Carbon Dioxide 29 (21-32) mEq/L Anion Gap 13.1 (5-15) BUN 73 H (7-18) mg/dL Creatinine 1.8 H (0.55-1.02) mg/dL Est Cr Clr Drug Dosing 18.56 mL/min Estimated GFR (MDRD) 27 (>60) mL/min BUN/Creatinine Ratio 40.6 H (14-18) Glucose 110 (83-115) mg/dL Calcium 8.5 (8.5-10.1) mg/dL Magnesium 2.7 H (1.8-2.4) mg/dl C-Reactive Protein 9.4 H* (<1.0) mg/dL [facility] Results Last 24 Hours: Microbiology 03/28/19 20:05 Aerobic Blood Culture - Preliminary Blood - Venous - Lab Draw NO GROWTH AFTER 1 DAY Anaerobic Blood Culture - Preliminary NO GROWTH AFTER 1 DAY 03/28/19 19:50 Aerobic Blood Culture - Preliminary Blood - Venous NO GROWTH AFTER 1 DAY Anaerobic Blood Culture - Preliminary NO GROWTH AFTER 1 DAY Med Orders - Current: Current Medications Acetaminophen (Tylenol) 650 mg PO Q6H PRN PRN Reason: Pain (mild 1-3) Hydrocodone Bitart/Acetaminophen ([place] 325-5 Mg) 1 tab PO Q4H PRN PRN Reason: Pain (moderate 4-6) Albuterol/Ipratropium (Duoneb 3.0-0.5 Mg/3 Ml) 3 ml NEB Q4H PRN PRN Reason: Shortness Of Breath/wheezing Last Admin: 03/30/19 06:26 Dose: 3 ml Amlodipine Besylate (Norvasc) 5 mg PO DAILY [facility] Last Admin: 03/29/19 10:05 Dose: 5 mg Bisacodyl (Dulcolax) 5 mg PO DAILY PRN PRN Reason: Constipation Cholecalciferol (Vitamin D3) 5,000 unit PO DAILY [facility] Last Admin: 03/29/19 10:05 Dose: 5,000 unit Docusate Sodium (Colace) 100 mg PO BID PRN PRN Reason: Constipation Furosemide (Lasix) 60 mg PO DAILY [facility] Last Admin: 03/29/19 10:04 Dose: 60 mg Guaifenesin (Mucinex) 600 mg PO DAILY PRN PRN Reason: Cough Last Admin: 03/29/19 20:06 Dose: 600 mg Guaifenesin/Phenylephrine HCl (Robitussin Dm) 5 ml PO Q6H PRN PRN Reason: cough Last Admin: 03/29/19 21:28 Dose: 5 ml Hydromorphone HCl (Dilaudid) 0.25 mg IVPUSH Q2H PRN PRN Reason: Pain (severe 7-10) Last Admin: 03/29/19 08:18 Dose: 0.25 mg Promethazine HCl 6.25 mg/ (Sodium Chloride) 50.25 mls @ 100 mls/hr IV Q6H PRN PRN Reason: Nausea/Vomiting Lorazepam (Ativan) 2 mg IVPUSH Q4H PRN PRN Reason: Seizures Lorazepam (Ativan) 0.5 mg IVPUSH Q4H PRN; Protocol PRN Reason: Anxiety Last Admin: 03/30/19 02:15 Dose: 0.5 mg Melatonin (Melatonin) 3 - 9 mg PO BEDTIME PRN PRN Reason: Sleep Last Admin: 03/29/19 00:28 Dose: 9 mg Metoprolol Tartrate (Lopressor) 37.5 mg PO Q12HR [facility] Last Admin: 03/29/19 20:06 Dose: 37.5 mg Morphine Sulfate (Morphine) 0.5 mg IVPUSH Q4H PRN PRN Reason: Dyspnea Last Admin: 03/29/19 23:40 Dose: 0.5 mg Nitroglycerin (Nitrostat) 0.4 mg SL ASDIRECTED PRN PRN Reason: Chest Pain Ondansetron HCl (Zofran) 4 mg IV Q6H PRN PRN Reason: Nausea/Vomiting Pantoprazole Sodium (Protonix) 40 mg PO BID [facility] Last Admin: 03/29/19 21:27 Dose: 40 mg Polyethylene Glycol (Miralax) 17 gm PO DAILY PRN PRN Reason: Constipation Saccharomyces Boulardii (Florastor) 250 mg PO DAILY [facility] Last Admin: 03/29/19 10:04 Dose: 250 mg Senna (Senna) 8.6 - 17.2 mg PO DAILY PRN PRN Reason: Constipation Senna/Docusate Sodium (Senna Plus) 1 tab PO BID PRN PRN Reason: Constipation Sodium Chloride (Saline Flush) 10 ml FLUSH ASDIRECTED PRN PRN Reason: Keep Vein Open Last Admin: 03/29/19 23:45 Dose: 10 ml Temazepam (Restoril) 7.5 mg PO BEDTIME PRN PRN Reason: Insomnia Last Admin: 03/29/19 21:28 Dose: 7.5 mg Discontinued Medications Azithromycin (Zithromax) 250 mg PO DAILY [facility] Cephalexin (Keflex) 250 mg PO TID [facility] Stop: 03/29/19 23:00 Last Admin: 03/29/19 20:06 Dose: 250 mg Furosemide (Lasix) 40 mg IVPUSH NOW ONE Stop: 03/28/19 19:35 Last Admin: 03/28/19 20:02 Dose: 40 mg Furosemide (Lasix) 60 mg IVPUSH NOW ONE Stop: 03/28/19 21:32 Last Admin: 03/28/19 22:08 Dose: 60 mg Azithromycin 500 mg/ Sodium (Chloride) 250 mls @ 250 mls/hr IV ONETIME ONE Stop: 03/28/19 22:59 Last Admin: 03/28/19 23:08 Dose: 250 mls/hr Lidocaine HCl (Xylocaine 1%) 10 ml INJECT ONETIME ONE Stop: 03/29/19 09:01 Last Admin: 03/29/19 10:02 Dose: Not Given Lorazepam (Ativan) 0.25 mg IVPUSH ONETIME ONE Stop: 03/29/19 09:26 Last Admin: 03/29/19 10:01 Dose: Not Given Non-Formulary Medication (Potassium Chloride [Potassium Chloride]) 20 meq PO Q2D [facility] Last Admin: 03/28/19 23:13 Dose: Not Given Pantoprazole Sodium (Protonix Iv) 40 mg IV Q12H [facility] Last Admin: 03/29/19 06:32 Dose: 40 mg Potassium Chloride (Klor-Con M20) 20 meq PO Q2D [facility] - Exam Quality Assessment: Supplemental Oxygen General: Alert, Oriented, Cooperative, Sedated HEENT: Pupils Equal, Pupils Reactive, EOMI, Mucous Membr. Moist/[place] Neck: Supple Lungs: Normal Respiratory Effort, Decreased Breath Sounds, Crackles, Other ( dullness to percussion on right lower base) GI/Abdominal Exam: Normal Bowel Sounds, Soft, Non-Tender, No Organomegaly, No Distention, No Abnormal Bruit, No Mass, Pelvis Stable (Female) Exam: Deferred Back Exam: Normal Inspection, Decreased Range of Motion Extremities: Normal Inspection, Normal Range of Motion, Non-Tender, Normal Capillary Refill, Other (trace peripheral edema) Peripheral Pulses: 2+: Dorsalis Pedis (L), Dorsalis Pedis (R) Skin: Warm, Dry, Intact Wound/Incisions: Healing Well, No Drainage Neurological: No New Focal Deficit Psy/Mental Status: Alert, Normal Affect, Normal Mood - Problem List Review Problem List Initiated/Reviewed/Updated: Yes - My Orders Last 24 Hours: My Active Orders 03/29/19 09:00 Cholecalciferol (Vitamin D3) [Vitamin D3] 5,000 unit PO DAILY Furosemide [Lasix] 60 mg PO DAILY Metoprolol Tartrate [Lopressor] 37.5 mg PO Q12HR Saccharomyces Boulardii [Florastor] 250 mg PO DAILY amLODIPine [Norvasc] 5 mg PO DAILY 03/29/19 09:22 Dextromethorphan/guaiFENesin [Robitussin DM] 5 ml PO Q6H PRN 03/29/19 21:00 Pantoprazole [ProTONIX] 40 mg PO BID 03/31/19 05:11 BASIC METABOLIC PANEL,BMP [CHEM] AM C-REACTIVE PROTEIN [CHEM] AM CBC WITH AUTO DIFF [HEME] AM MAGNESIUM [CHEM] AM 04/01/19 05:11 BASIC METABOLIC PANEL,BMP [CHEM] AM C-REACTIVE PROTEIN [CHEM] AM CBC WITH AUTO DIFF [HEME] AM MAGNESIUM [CHEM] AM 04/02/19 05:11 BASIC METABOLIC PANEL,BMP [CHEM] AM C-REACTIVE PROTEIN [CHEM] AM CBC WITH AUTO DIFF [HEME] AM MAGNESIUM [CHEM] AM - Plan Plan:: Assessment: Acute: B/L Pleural Effusions - CXR shows moderate size b/l pleural effusions - Received IV lasix in ED last night - Offered thoracentesis-scheduled for this morning - Had left sided thoracentesis and she tolerated the procedure w/o any issues - We plan for the right side at lunch time CHF - Carries a hx/o HF with Unknown EF - Significant lower extremity edema and b/l pleural effusion - CXR shows moderate size b/l pleural effusions - ProBNP of 9032 - Heat Failure regimen: diuretics, salt/fluid restriction, daily weight check and Is/Os - Goal is to get her to dry weight CAD S/p 2 Vessel CABG - 2 weeks ago in [place] (Distal Circumflex and SANCHEZ to LAD) - Continue ASA and Metoprolol - ASA diet Hyperglycemia with DM2, Stable - BS 130-150s - Diet controlled - A1C is 5.70 - Monitor BS level Generalized Weakness - 2/2 current illness Resolved: S/p Respiratory Distress/Dyspnea - 2/2 worsening pleural effusions - Her lasix dose was just increased to 60 mg po daily from 40 mg daily - Supplemental O2 and PRN NIPPV S/p Mild Hypokalemia - K of 5.2--> 5.1 - Takes K supplement - Hold supplement and continue to monitor Chronic: HF with Unknown EF, HTN, OA/DJD, Normocytic Normochromic Anemia, and DM2, diet controlled Plan: She is clinically much better Heart Failure Regimen RT/PT/OT to assess and treat IS as directed and ambulate as tolerated Fall Precautions SW/CM for d/c planning Code status: full Additional orders as above Prognosis good Patient has underlying CKD Stage 3-4. Her diuretics have been held and we will resume it tomorrow. Her family was updated about her clinical progress, treatment and discharge care plan. Informed them SW and CM will be in to speak with them.
--- NOTE | 2019-03-30 08:20 | PCM.PN ---
- General Info Date of Service: 03/30/19 Admission Dx/Problem (Free Text): Admission Diagnosis/Problem Admission Diagnosis/Problem Pleural effusion Functional Status: Reports: Pain Controlled, Tolerating Diet, Ambulating, Urinating. Denies: New Symptoms - Patient Data Vitals - Most Recent: Last Vital Signs Temp 36.4 C 03/30/19 04:00 Pulse 68 03/29/19 20:06 Resp 16 03/30/19 05:00 BP 118/50 L 03/30/19 04:00 Pulse Ox 92 L 03/30/19 06:28 Weight - Most Recent: 66.95 kg I&O - Last 24 Hours: Intake & Output 03/29/19 03/30/19 03/30/19 22:59 06:59 14:59 Intake Total 200 400 Output Total 800 500 Balance -600 -100 Lab Results Last 24 Hours: Laboratory Results - last 24 hr 03/30/19 03/30/19 Range/Units 06:44 06:44 WBC 7.01 (3.98-10.04) K/mm3 RBC 3.77 L (3.98-5.22) M/mm3 Hgb 10.7 L (11.2-15.7) gm/L Hct 33.5 L (34.1-44.9) % MCV 88.9 (79.4-94.8) fl MCH 28.4 (25.6-32.2) pg MCHC 31.9 L (32.2-35.5) g/dl RDW Std Deviation 45.5 (36.4-46.3) fL Plt Count 313 (182-369) K/mm3 MPV 8.6 L (9.4-12.3) fl Neut % (Auto) 75.8 H (34.0-71.1) % Lymph % (Auto) 9.1 L (19.3-51.7) % [place] % (Auto) 8.3 (4.7-12.5) % Eos % (Auto) 6.4 H (0.7-5.8) Baso % (Auto) 0.1 (0.1-1.2) % Neut # (Auto) 5.31 (1.56-6.13) K/mm3 Lymph # (Auto) 0.64 L (1.18-3.74) K/mm3 [place] # (Auto) 0.58 H (0.24-0.36) K/mm3 Eos # (Auto) 0.45 H (0.04-0.36) K/mm3 Baso # (Auto) 0.01 (0.01-0.08) K/mm3 Manual Slide Review Abnormal smear Sodium 137 (136-145) mEq/L Potassium 5.1 (3.5-5.1) mEq/L Chloride 100 (98-107) mEq/L Carbon Dioxide 29 (21-32) mEq/L Anion Gap 13.1 (5-15) BUN 73 H (7-18) mg/dL Creatinine 1.8 H (0.55-1.02) mg/dL Est Cr Clr Drug Dosing 18.56 mL/min Estimated GFR (MDRD) 27 (>60) mL/min BUN/Creatinine Ratio 40.6 H (14-18) Glucose 110 (83-115) mg/dL Calcium 8.5 (8.5-10.1) mg/dL Magnesium 2.7 H (1.8-2.4) mg/dl C-Reactive Protein 9.4 H* (<1.0) mg/dL [facility] Results Last 24 Hours: Microbiology 03/28/19 20:05 Aerobic Blood Culture - Preliminary Blood - Venous - Lab Draw NO GROWTH AFTER 1 DAY Anaerobic Blood Culture - Preliminary NO GROWTH AFTER 1 DAY 03/28/19 19:50 Aerobic Blood Culture - Preliminary Blood - Venous NO GROWTH AFTER 1 DAY Anaerobic Blood Culture - Preliminary NO GROWTH AFTER 1 DAY Med Orders - Current: Current Medications Acetaminophen (Tylenol) 650 mg PO Q6H PRN PRN Reason: Pain (mild 1-3) Hydrocodone Bitart/Acetaminophen ([place] 325-5 Mg) 1 tab PO Q4H PRN PRN Reason: Pain (moderate 4-6) Albuterol/Ipratropium (Duoneb 3.0-0.5 Mg/3 Ml) 3 ml NEB Q4H PRN PRN Reason: Shortness Of Breath/wheezing Last Admin: 03/30/19 06:26 Dose: 3 ml Amlodipine Besylate (Norvasc) 5 mg PO DAILY [facility] Last Admin: 03/29/19 10:05 Dose: 5 mg Bisacodyl (Dulcolax) 5 mg PO DAILY PRN PRN Reason: Constipation Cholecalciferol (Vitamin D3) 5,000 unit PO DAILY [facility] Last Admin: 03/29/19 10:05 Dose: 5,000 unit Docusate Sodium (Colace) 100 mg PO BID PRN PRN Reason: Constipation Furosemide (Lasix) 60 mg PO DAILY [facility] Last Admin: 03/29/19 10:04 Dose: 60 mg Guaifenesin (Mucinex) 600 mg PO DAILY PRN PRN Reason: Cough Last Admin: 03/29/19 20:06 Dose: 600 mg Guaifenesin/Phenylephrine HCl (Robitussin Dm) 5 ml PO Q6H PRN PRN Reason: cough Last Admin: 03/29/19 21:28 Dose: 5 ml Hydromorphone HCl (Dilaudid) 0.25 mg IVPUSH Q2H PRN PRN Reason: Pain (severe 7-10) Last Admin: 03/29/19 08:18 Dose: 0.25 mg Promethazine HCl 6.25 mg/ (Sodium Chloride) 50.25 mls @ 100 mls/hr IV Q6H PRN PRN Reason: Nausea/Vomiting Lorazepam (Ativan) 2 mg IVPUSH Q4H PRN PRN Reason: Seizures Lorazepam (Ativan) 0.5 mg IVPUSH Q4H PRN; Protocol PRN Reason: Anxiety Last Admin: 03/30/19 02:15 Dose: 0.5 mg Melatonin (Melatonin) 3 - 9 mg PO BEDTIME PRN PRN Reason: Sleep Last Admin: 03/29/19 00:28 Dose: 9 mg Metoprolol Tartrate (Lopressor) 37.5 mg PO Q12HR [facility] Last Admin: 03/29/19 20:06 Dose: 37.5 mg Morphine Sulfate (Morphine) 0.5 mg IVPUSH Q4H PRN PRN Reason: Dyspnea Last Admin: 03/29/19 23:40 Dose: 0.5 mg Nitroglycerin (Nitrostat) 0.4 mg SL ASDIRECTED PRN PRN Reason: Chest Pain Ondansetron HCl (Zofran) 4 mg IV Q6H PRN PRN Reason: Nausea/Vomiting Pantoprazole Sodium (Protonix) 40 mg PO BID [facility] Last Admin: 03/29/19 21:27 Dose: 40 mg Polyethylene Glycol (Miralax) 17 gm PO DAILY PRN PRN Reason: Constipation Saccharomyces Boulardii (Florastor) 250 mg PO DAILY [facility] Last Admin: 03/29/19 10:04 Dose: 250 mg Senna (Senna) 8.6 - 17.2 mg PO DAILY PRN PRN Reason: Constipation Senna/Docusate Sodium (Senna Plus) 1 tab PO BID PRN PRN Reason: Constipation Sodium Chloride (Saline Flush) 10 ml FLUSH ASDIRECTED PRN PRN Reason: Keep Vein Open Last Admin: 03/29/19 23:45 Dose: 10 ml Temazepam (Restoril) 7.5 mg PO BEDTIME PRN PRN Reason: Insomnia Last Admin: 03/29/19 21:28 Dose: 7.5 mg Discontinued Medications Azithromycin (Zithromax) 250 mg PO DAILY [facility] Cephalexin (Keflex) 250 mg PO TID [facility] Stop: 03/29/19 23:00 Last Admin: 03/29/19 20:06 Dose: 250 mg Furosemide (Lasix) 40 mg IVPUSH NOW ONE Stop: 03/28/19 19:35 Last Admin: 03/28/19 20:02 Dose: 40 mg Furosemide (Lasix) 60 mg IVPUSH NOW ONE Stop: 03/28/19 21:32 Last Admin: 03/28/19 22:08 Dose: 60 mg Azithromycin 500 mg/ Sodium (Chloride) 250 mls @ 250 mls/hr IV ONETIME ONE Stop: 03/28/19 22:59 Last Admin: 03/28/19 23:08 Dose: 250 mls/hr Lidocaine HCl (Xylocaine 1%) 10 ml INJECT ONETIME ONE Stop: 03/29/19 09:01 Last Admin: 03/29/19 10:02 Dose: Not Given Lorazepam (Ativan) 0.25 mg IVPUSH ONETIME ONE Stop: 03/29/19 09:26 Last Admin: 03/29/19 10:01 Dose: Not Given Non-Formulary Medication (Potassium Chloride [Potassium Chloride]) 20 meq PO Q2D [facility] Last Admin: 03/28/19 23:13 Dose: Not Given Pantoprazole Sodium (Protonix Iv) 40 mg IV Q12H [facility] Last Admin: 03/29/19 06:32 Dose: 40 mg Potassium Chloride (Klor-Con M20) 20 meq PO Q2D [facility] - My Orders Last 24 Hours: My Active Orders 03/29/19 09:00 Cholecalciferol (Vitamin D3) [Vitamin D3] 5,000 unit PO DAILY Furosemide [Lasix] 60 mg PO DAILY Metoprolol Tartrate [Lopressor] 37.5 mg PO Q12HR Saccharomyces Boulardii [Florastor] 250 mg PO DAILY amLODIPine [Norvasc] 5 mg PO DAILY 03/29/19 09:22 Dextromethorphan/guaiFENesin [Robitussin DM] 5 ml PO Q6H PRN 03/29/19 21:00 Pantoprazole [ProTONIX] 40 mg PO BID 03/31/19 05:11 BASIC METABOLIC PANEL,BMP [CHEM] AM C-REACTIVE PROTEIN [CHEM] AM CBC WITH AUTO DIFF [HEME] AM MAGNESIUM [CHEM] AM 04/01/19 05:11 BASIC METABOLIC PANEL,BMP [CHEM] AM C-REACTIVE PROTEIN [CHEM] AM CBC WITH AUTO DIFF [HEME] AM MAGNESIUM [CHEM] AM 04/02/19 05:11 BASIC METABOLIC PANEL,BMP [CHEM] AM C-REACTIVE PROTEIN [CHEM] AM CBC WITH AUTO DIFF [HEME] AM MAGNESIUM [CHEM] AM - Plan Plan:: Assessment: Acute: Respiratory Distress/Dyspnea - 2/2 worsening pleural effusions - Her lasix dose was just increased to 60 mg po daily from 40 mg daily - Supplemental O2 and PRN NIPPV B/L Pleural Effusions - CXR shows moderate size b/l pleural effusions - Received IV lasix in ED last night - Offered thoracentesis-scheduled for this morning CHF - Carries a hx/o HF with Unknown EF - Significant lower extremity edema and b/l pleural effusion - CXR shows moderate size b/l pleural effusions - ProBNP of 9032 - Heat Failure regimen: diuretics, salt/fluid restriction, daily weight check and Is/Os - Goal is to get her to dry weight CAD S/p 2 Vessel CABG - 2 weeks ago in [place] (Distal Circumflex and SANCHEZ to LAD) - Continue ASA and Metoprolol - ASA diet Mild Hypokalemia - K of 5.2 - Takes K supplement - Hold supplement and continue to monitor Hyperglycemia with DM2 - BS 130-150s - Diet controlled - A1C is 5.70 - Monitor BS level Chronic: HF with Unknown EF, HTN, OA/DJD, Normocytic Normochromic Anemia, and DM2, diet controlled Plan: Admitted overnight in ICU Resume Home Meds Heart Failure Regimen Received adequate IV lasix in ED last night RT/PT/OT to assess and treat IS as directed 2D echo and Thoracentesis for today Fall Precautions SW/CM for d/c planning Code status: full Additional orders as above Prognosis guarded
[2019-03-30] MEDS: Saccharomyces Boulardii (Probiotic) 250 MG Cap PO SCH (09:19)
[2019-03-30] MEDS: Pantoprazole 40 MG Tab.CR PO SCH ×2 (09:19→21:52)
[2019-03-30] MEDS: Acetaminophen/HYDROcodone 325-5 MG Tab PO PRN (09:19)
[2019-03-30] MEDS: amLODIPine 5 MG Tab PO SCH (09:20)
[2019-03-30] MEDS: Metoprolol Tartrate 25 MG Tab PO SCH ×2 (09:20→21:52)
[2019-03-30] MEDS: Furosemide 40 MG Tab PO SCH (09:20)
[2019-03-30] MEDS: Cholecalciferol (Vitamin D3) 5,000 UNIT Tab PO SCH (09:20)
--- NOTE | 2019-03-30 11:12 | PCM.PRNOTE ---
- Free Text/Narrative Note: DATE OF PROCEDURE: 03/30/2019 PREOPERATIVE DIAGNOSIS: B/L Moderately Large Pleural effusion, R>L POSTOPERATIVE DIAGNOSIS: B/L Moderately Large Pleural effusion PROCEDURE PERFORMED: US Guided Therapeutic Thoracentesis DESCRIPTION OF PROCEDURE: After informed consent was obtained, signed, the patient had ultrasound localization in the left hemithorax. The patient was sterilely prepped and topical lidocaine was induced. Stab incision was made and a thoracentesis catheter was inserted and 1030 mL of hemorrhagic fluid was obtained without difficulty. The patient tolerated the procedure well. Postprocedure chest x-ray is pending.
[2019-03-30] MEDS: HYDROmorphone 0.5 MG/0.5 ML Syringe IVPUSH PRN (11:28)
--- NOTE | 2019-03-30 12:40 | CR ---
Chest: Portable view of the chest was obtained. Comparison: Prior chest x-ray of 03/29/19. Reappearance of left sided pleural effusion is noted. Right pleural effusion has minimally decreased in amount from previous exam. No right sided pneumothorax is seen.. Left pleural effusion is moderate in severity. Mild pulmonary vascular congestion is stable. Heart is enlarged. Sternotomy wires are noted. Mild scoliosis is noted within the spine. Impression: 1. Reappearance of moderate sized left-sided pleural effusion from previous study. 2. Slight decrease in right-sided pleural effusion from previous exam with no pneumothorax. 3. Stable cardiomegaly and mild pulmonary vascular congestion and other findings believed to be incidental. Diagnostic code #3
[2019-03-30] MEDS: Aspirin 81 MG Tab.EC PO SCH (16:19)
[2019-03-30] MEDS: guaiFENesin/Dextromethorphan 100-10 MG/5 ML Soln 5 ML Cup PO PRN (21:52)
[2019-03-30] MEDS: Temazepam 7.5 MG Cap PO PRN (21:52)
[2019-03-30] MEDS: guaiFENesin 600 MG Tab.ER PO PRN (21:52)
[2019-03-31] MEDS: Albuterol/Ipratropium 3.0-0.5 MG/3 ML Neb Soln NEB PRN (01:25)
[2019-03-31] MEDS: Sodium Chloride 0.9% 10 ML Syringe FLUSH PRN (01:42)
[2019-03-31] MEDS: LORazepam 2 MG/ML SDV IVPUSH PRN (01:43)
[2019-03-31] MEDS: Furosemide 40 MG Tab PO SCH (08:29)
[2019-03-31] MEDS: Pantoprazole 40 MG Tab.CR PO SCH ×2 (08:30→20:26)
[2019-03-31] MEDS: Aspirin 81 MG Tab.EC PO SCH (08:30)
[2019-03-31] MEDS: Saccharomyces Boulardii (Probiotic) 250 MG Cap PO SCH (08:30)
[2019-03-31] MEDS: Metoprolol Tartrate 25 MG Tab PO SCH ×2 (08:31→20:24)
[2019-03-31] MEDS: Cholecalciferol (Vitamin D3) 5,000 UNIT Tab PO SCH (08:32)
[2019-03-31] MEDS: amLODIPine 5 MG Tab PO SCH (08:32)
--- NOTE | 2019-03-31 11:13 | CR ---
Chest: Portable view of the chest was obtained. Comparison: Prior chest x-ray of 03/30/19. Left-sided pleural effusion is seen which does not appear as large as seen on previous study. Elevated right hemidiaphragm appears to be present with decreased right-sided pleural effusion from prior exam. Upper lungs are clear. Pulmonary vessels are minimally increased. Heart is enlarged. Bony structures are grossly intact. Impression: 1. Decreased pleural effusions from prior study. 2. Probable elevated right hemidiaphragm. 3. Stable cardiomegaly and mild pulmonary vascular congestion. Diagnostic code #2
[2019-03-31] MEDS: Sertraline 50 MG Tab PO SCH (13:37)
--- NOTE | 2019-03-31 15:52 | PCM.PN ---
- General Info Date of Service: 03/31/19 Admission Dx/Problem (Free Text): Bilateral pleural effusions CHF improvement Crackle bilateral in lungs Diminished breath sounds in left lung On oxygen going from 3L to 1L Pallor and 1+ edema Labs ordered and pending review - Review of Systems General: Reports: Weakness, Fatigue HEENT: Reports: No Symptoms Pulmonary: Reports: Shortness of Breath Cardiovascular: Reports: No Symptoms Gastrointestinal: Reports: No Symptoms Genitourinary: Reports: No Symptoms Musculoskeletal: Reports: No Symptoms Skin: Reports: Pallor Neurological: Reports: No Symptoms Psychiatric: Reports: No Symptoms - Patient Data Vitals - Most Recent: Last Vital Signs Temp 98.8 F 03/31/19 12:00 Pulse 81 03/31/19 08:31 Resp 16 03/31/19 12:00 BP 141/43 H 03/31/19 12:00 Pulse Ox 93 L 03/31/19 12:00 Weight - Most Recent: 148 lb I&O - Last 24 Hours: Intake & Output 03/31/19 03/31/19 03/31/19 06:59 14:59 22:59 Output Total 200 Balance -200 Lab Results Last 24 Hours: Laboratory Results - last 24 hr 03/31/19 03/31/19 Range/Units 07:05 07:05 WBC 14.10 H (3.98-10.04) K/mm3 RBC 3.96 L (3.98-5.22) M/mm3 Hgb 11.2 (11.2-15.7) gm/L Hct 34.5 (34.1-44.9) % MCV 87.1 (79.4-94.8) fl MCH 28.3 (25.6-32.2) pg MCHC 32.5 (32.2-35.5) g/dl RDW Std Deviation 44.2 (36.4-46.3) fL Plt Count 316 (182-369) K/mm3 MPV 8.7 L (9.4-12.3) fl Neut % (Auto) 86.8 H (34.0-71.1) % Lymph % (Auto) 4.4 L (19.3-51.7) % [place] % (Auto) 5.7 (4.7-12.5) % Eos % (Auto) 2.7 (0.7-5.8) Baso % (Auto) 0.1 (0.1-1.2) % Neut # (Auto) 12.24 H (1.56-6.13) K/mm3 Lymph # (Auto) 0.62 L (1.18-3.74) K/mm3 [place] # (Auto) 0.80 H (0.24-0.36) K/mm3 Eos # (Auto) 0.38 H (0.04-0.36) K/mm3 Baso # (Auto) 0.02 (0.01-0.08) K/mm3 Manual Slide Review Abnormal smear Sodium 135 L (136-145) mEq/L Potassium 5.1 (3.5-5.1) mEq/L Chloride 99 (98-107) mEq/L Carbon Dioxide 29 (21-32) mEq/L Anion Gap 12.1 (5-15) BUN 73 H (7-18) mg/dL Creatinine 2.0 H (0.55-1.02) mg/dL Est Cr Clr Drug Dosing 16.70 mL/min Estimated GFR (MDRD) 24 (>60) mL/min BUN/Creatinine Ratio 36.5 H (14-18) Glucose 129 H (83-115) mg/dL Calcium 8.4 L (8.5-10.1) mg/dL Magnesium 2.5 H (1.8-2.4) mg/dl C-Reactive Protein 13.7 H* (<1.0) mg/dL [place] Results Last 24 Hours: Microbiology 03/28/19 20:05 Aerobic Blood Culture - Preliminary Blood - Venous - Lab Draw NO GROWTH AFTER 2 DAYS Anaerobic Blood Culture - Preliminary NO GROWTH AFTER 2 DAYS 03/28/19 19:50 Aerobic Blood Culture - Preliminary Blood - Venous NO GROWTH AFTER 2 DAYS Anaerobic Blood Culture - Preliminary NO GROWTH AFTER 2 DAYS Med Orders - Current: Current Medications Acetaminophen (Tylenol) 650 mg PO Q6H PRN PRN Reason: Pain (mild 1-3) Hydrocodone Bitart/Acetaminophen ([place] 325-5 Mg) 1 tab PO Q4H PRN PRN Reason: Pain (moderate 4-6) Last Admin: 03/30/19 09:19 Dose: 1 tab Albuterol/Ipratropium (Duoneb 3.0-0.5 Mg/3 Ml) 3 ml NEB Q4H PRN PRN Reason: Shortness Of Breath/wheezing Last Admin: 03/31/19 01:25 Dose: 3 ml Amlodipine Besylate (Norvasc) 2.5 mg PO DAILY [facility] Aspirin (Halfprin) 81 mg PO DAILY [facility] Last Admin: 03/31/19 08:30 Dose: 81 mg Bisacodyl (Dulcolax) 5 mg PO DAILY PRN PRN Reason: Constipation Cholecalciferol (Vitamin D3) 5,000 unit PO DAILY [facility] Last Admin: 03/31/19 08:32 Dose: 5,000 unit Docusate Sodium (Colace) 100 mg PO BID PRN PRN Reason: Constipation Last Admin: 03/30/19 21:52 Dose: 100 mg Furosemide (Lasix) 40 mg PO DAILY [facility] Guaifenesin (Mucinex) 600 mg PO DAILY PRN PRN Reason: Cough Last Admin: 03/30/19 21:52 Dose: 600 mg Hydrochlorothiazide (Hydrochlorothiazide) 12.5 mg PO BIDDIURETIC PHUONG Stop: 04/02/19 06:01 Hydromorphone HCl (Dilaudid) 0.25 mg IVPUSH Q2H PRN PRN Reason: Pain (severe 7-10) Last Admin: 03/30/19 11:28 Dose: 0.5 mg Promethazine HCl 6.25 mg/ (Sodium Chloride) 50.25 mls @ 100 mls/hr IV Q6H PRN PRN Reason: Nausea/Vomiting Lorazepam (Ativan) 2 mg IVPUSH Q4H PRN PRN Reason: Seizures Lorazepam (Ativan) 0.5 mg IVPUSH Q4H PRN; Protocol PRN Reason: Anxiety Last Admin: 03/31/19 01:43 Dose: 0.5 mg Losartan Potassium (Cozaar) 25 mg PO DAILY [facility] Melatonin (Melatonin) 3 - 9 mg PO BEDTIME PRN PRN Reason: Sleep Last Admin: 03/29/19 00:28 Dose: 9 mg Metoprolol Tartrate (Lopressor) 37.5 mg PO Q12HR [facility] Last Admin: 03/31/19 08:31 Dose: 37.5 mg Morphine Sulfate (Morphine) 0.5 mg IVPUSH Q4H PRN PRN Reason: Dyspnea Last Admin: 03/29/19 23:40 Dose: 0.5 mg Multivitamins (Thera) 1 each PO DAILY [facility] Nitroglycerin (Nitrostat) 0.4 mg SL ASDIRECTED PRN PRN Reason: Chest Pain Ondansetron HCl (Zofran) 4 mg IV Q6H PRN PRN Reason: Nausea/Vomiting Ondansetron HCl (Zofran Odt) 8 mg PO BID@0700,1900 [facility] Stop: 04/02/19 19:00 Pantoprazole Sodium (Protonix) 40 mg PO BID [facility] Last Admin: 03/31/19 08:30 Dose: 40 mg Polyethylene Glycol (Miralax) 17 gm PO DAILY PRN PRN Reason: Constipation Saccharomyces Boulardii (Florastor) 250 mg PO DAILY [facility] Last Admin: 03/31/19 08:30 Dose: 250 mg Senna (Senna) 8.6 - 17.2 mg PO DAILY PRN PRN Reason: Constipation Senna/Docusate Sodium (Senna Plus) 1 tab PO BID PRN PRN Reason: Constipation Sertraline HCl (Zoloft) 50 mg PO DAILY [facility] Last Admin: 03/31/19 13:37 Dose: 50 mg Sodium Chloride (Saline Flush) 10 ml FLUSH ASDIRECTED PRN PRN Reason: Keep Vein Open Last Admin: 03/31/19 01:42 Dose: 10 ml Temazepam (Restoril) 7.5 mg PO BEDTIME PRN PRN Reason: Insomnia Last Admin: 03/30/19 21:52 Dose: 7.5 mg Discontinued Medications Amlodipine Besylate (Norvasc) 5 mg PO DAILY [facility] Last Admin: 03/31/19 08:32 Dose: 5 mg Azithromycin (Zithromax) 250 mg PO DAILY [facility] Cephalexin (Keflex) 250 mg PO TID [facility] Stop: 03/29/19 23:00 Last Admin: 03/29/19 20:06 Dose: 250 mg Furosemide (Lasix) 40 mg IVPUSH NOW ONE Stop: 03/28/19 19:35 Last Admin: 03/28/19 20:02 Dose: 40 mg Furosemide (Lasix) 60 mg PO DAILY [facility] Last Admin: 03/31/19 08:29 Dose: 60 mg Furosemide (Lasix) 60 mg IVPUSH NOW ONE Stop: 03/28/19 21:32 Last Admin: 03/28/19 22:08 Dose: 60 mg Guaifenesin/Phenylephrine HCl (Robitussin Dm) 5 ml PO Q6H PRN PRN Reason: cough Last Admin: 03/30/19 21:52 Dose: 5 ml Azithromycin 500 mg/ Sodium (Chloride) 250 mls @ 250 mls/hr IV ONETIME ONE Stop: 03/28/19 22:59 Last Admin: 03/28/19 23:08 Dose: 250 mls/hr Lidocaine HCl (Xylocaine 1%) 10 ml INJECT ONETIME ONE Stop: 03/29/19 09:01 Last Admin: 03/29/19 10:02 Dose: Not Given Lorazepam (Ativan) 0.25 mg IVPUSH ONETIME ONE Stop: 03/29/19 09:26 Last Admin: 03/29/19 10:01 Dose: Not Given Non-Formulary Medication (Potassium Chloride [Potassium Chloride]) 20 meq PO Q2D PHUONG Last Admin: 03/28/19 23:13 Dose: Not Given Pantoprazole Sodium (Protonix Iv) 40 mg IV Q12H PHUONG Last Admin: 03/29/19 06:32 Dose: 40 mg Potassium Chloride (Klor-Con M20) 20 meq PO Q2D PHUONG - Exam General: Alert, Oriented HEENT: Pupils Equal, Pupils Reactive, EOMI, Mucous Membr. Moist/[place] Neck: Supple Lungs: Decreased Breath Sounds (left), Crackles (bilateral) Cardiovascular: Regular Rate, Regular Rhythm GI/Abdominal Exam: Normal Bowel Sounds, Soft, Non-Tender, No Organomegaly, No Distention, No Abnormal Bruit, No Mass, Pelvis Stable (Female) Exam: Normal External Exam, Normal Speculum Exam, Normal Bimanual Exam Back Exam: Normal Inspection, Full Range of Motion Extremities: Pallor, Other (1+ edema) Skin: Warm, Dry, Intact Neurological: No New Focal Deficit Psy/Mental Status: Alert, Normal Affect, Normal Mood - Problem List & Annotations (1) Acute exacerbation of congestive heart failure SNOMED Code(s): 004846708, 59680415270861 Code(s): I50.9 - HEART FAILURE, UNSPECIFIED Status: Acute Current Visit: Yes Qualifiers: Qualified Code(s): I50.33 - Acute on chronic diastolic (congestive) heart failure (2) Anemia SNOMED Code(s): 864192650 Code(s): D64.9 - ANEMIA, UNSPECIFIED Status: Acute Current Visit: Yes Qualifiers: Qualified Code(s): D64.9 - Anemia, unspecified (3) Bilateral pleural effusion SNOMED Code(s): 566387498 Code(s): J90 - PLEURAL EFFUSION, NOT ELSEWHERE CLASSIFIED Status: Acute Current Visit: Yes (4) Chronic renal insufficiency, stage IV (severe) SNOMED Code(s): 683377914 Code(s): N18.4 - CHRONIC KIDNEY DISEASE, STAGE 4 (SEVERE) Status: Acute Current Visit: Yes (5) Hypoxemia SNOMED Code(s): 345752014 Code(s): R09.02 - HYPOXEMIA Status: Acute Current Visit: Yes - Problem List Review Problem List Initiated/Reviewed/Updated: Yes - Plan Plan:: Assessment: Acute: B/L Pleural Effusions - CXR shows moderate size b/l pleural effusions - Received IV lasix in ED last night - Offered thoracentesis-scheduled for this morning - Had left sided thoracentesis and she tolerated the procedure w/o any issues - We plan for the right side at lunch time CHF - Carries a hx/o HF with Unknown EF - Significant lower extremity edema and b/l pleural effusion - CXR shows moderate size b/l pleural effusions - ProBNP of 9032 - Heat Failure regimen: diuretics, salt/fluid restriction, daily weight check and Is/Os - Goal is to get her to dry weight CAD S/p 2 Vessel CABG - 2 weeks ago in [place] (Distal Circumflex and SANCHEZ to LAD) - Continue ASA and Metoprolol - ASA diet Hyperglycemia with DM2, Stable - BS 130-150s - Diet controlled - A1C is 5.70 - Monitor BS level Generalized Weakness - 2/2 current illness Resolved: S/p Respiratory Distress/Dyspnea - 2/2 worsening pleural effusions - Her lasix dose was just increased to 60 mg po daily from 40 mg daily - Supplemental O2 and PRN NIPPV S/p Mild Hypokalemia - K of 5.2--> 5.1 - Takes K supplement - Hold supplement and continue to monitor Chronic: HF with Unknown EF, HTN, OA/DJD, Normocytic Normochromic Anemia, and DM2, diet controlled Plan: She is clinically much better Heart Failure Regimen RT/PT/OT to assess and treat IS as directed and ambulate as tolerated Fall Precautions SW/CM for d/c planning Code status: full Additional orders as above Prognosis good Patient has underlying CKD Stage 3-4. Her diuretics have been held and we will resume it tomorrow. Her family was updated about her clinical progress, treatment and discharge care plan. Informed them SW and CM will be in to speak with them. 03/31/2019 Assessment: Bilateral pleural effusions CHF improvement Crackle bilateral in lungs Diminished breath sounds in left lung On oxygen going from 3L to 1L Pallor and 1+ edema Labs ordered and pending review Plan: Discussed walking Start Zofran twice a day for 48 hours Start multivitamin with iron Start Losartan 25 MG Decrease amlodipine to half Decrease Lasix to 40 MG daily Discontinue Guanfacine
[2019-03-31] MEDS: Ondansetron 4 MG Tab.DIS PO SCH (19:47)
[2019-03-31] MEDS: Hydrochlorothiazide 12.5 MG Cap PO SCH (19:47)
[2019-03-31] MEDS: Melatonin 3 MG Tab PO PRN (20:26)
[2019-04-01] MEDS: Acetaminophen/HYDROcodone 325-5 MG Tab PO PRN (01:58)
[2019-04-01] MEDS: Melatonin 3 MG Tab PO PRN ×2 (01:59→21:12)
[2019-04-01] MEDS: Albuterol/Ipratropium 3.0-0.5 MG/3 ML Neb Soln NEB PRN (02:07)
[2019-04-01] MEDS: Ondansetron 4 MG Tab.DIS PO SCH ×2 (06:47→18:45)
[2019-04-01] MEDS: Hydrochlorothiazide 12.5 MG Cap PO SCH ×2 (06:47→14:56)
[2019-04-01] MEDS: Furosemide 40 MG Tab PO SCH (09:43)
[2019-04-01] MEDS: amLODIPine 2.5 MG Tab PO SCH (09:46)
[2019-04-01] MEDS: Aspirin 81 MG Tab.EC PO SCH (09:46)
[2019-04-01] MEDS: Metoprolol Tartrate 25 MG Tab PO SCH ×2 (09:48→21:10)
[2019-04-01] MEDS: Losartan 25 MG Tab PO SCH (09:50)
[2019-04-01] MEDS: Multivitamins,Therapeutic Tab PO SCH (09:50)
[2019-04-01] MEDS: Cholecalciferol (Vitamin D3) 5,000 UNIT Tab PO SCH (09:50)
[2019-04-01] MEDS: Sertraline 50 MG Tab PO SCH (09:50)
[2019-04-01] MEDS: Saccharomyces Boulardii (Probiotic) 250 MG Cap PO SCH (09:50)
[2019-04-01] MEDS: Pantoprazole 40 MG Tab.CR PO SCH ×2 (09:50→21:12)
[2019-04-01] MEDS ORDERED: Furosemide 40 MG/4 ML VIAL IVPUSH ONE ×2 (10:24→17:00)
[2019-04-01] MEDS ORDERED: Albumin 25% 12.5 GM/50 ML BAG IV ONE (13:15)
[2019-04-01] MEDS: Albumin 25% 12.5 GM/50 ML BAG IV SCH ×4 (14:36→20:11)
[2019-04-02] MEDS: Albuterol/Ipratropium 3.0-0.5 MG/3 ML Neb Soln NEB PRN ×2 (04:33→21:57)
[2019-04-02] MEDS: Hydrochlorothiazide 12.5 MG Cap PO SCH (06:24)
[2019-04-02] MEDS: Ondansetron 4 MG Tab.DIS PO SCH (06:25)
[2019-04-02] MEDS: Sertraline 50 MG Tab PO SCH (08:44)
[2019-04-02] MEDS: Pantoprazole 40 MG Tab.CR PO SCH (08:45)
[2019-04-02] MEDS: Aspirin 81 MG Tab.EC PO SCH (08:45)
[2019-04-02] MEDS: Furosemide 40 MG Tab PO SCH (08:45)
[2019-04-02] MEDS: Cholecalciferol (Vitamin D3) 5,000 UNIT Tab PO SCH (08:46)
[2019-04-02] MEDS: Multivitamins,Therapeutic Tab PO SCH (08:47)
[2019-04-02] MEDS: Saccharomyces Boulardii (Probiotic) 250 MG Cap PO SCH (08:47)
[2019-04-02] MEDS: Losartan 25 MG Tab PO SCH (09:06)
[2019-04-02] MEDS: amLODIPine 2.5 MG Tab PO SCH (09:06)
[2019-04-02] MEDS: Metoprolol Tartrate 25 MG Tab PO SCH ×2 (09:07→20:18)
--- NOTE | 2019-04-02 09:22 | CR ---
Chest: Portable view of the chest was obtained. Comparison: Previous chest x-ray of 04/01/19 and 03/31/19. Continuing small bilateral pleural effusions with increased parenchymal densities within both lung bases. Findings are fairly stable from previous studies. Upper lungs remain clear. Heart is enlarged with slight stable pulmonary vascular congestion. Previous sternotomy is noted. Impression: 1. Continuing small bilateral pleural effusions as well as bibasilar densities. No significant change is seen from previous studies. Diagnostic code #3
[2019-04-02] MEDS ORDERED: Ondansetron 4 MG Tab.DIS PO PRN (12:03)
--- NOTE | 2019-04-02 14:43 | PCM.PN ---
- General Info Date of Service: 04/01/19 Admission Dx/Problem (Free Text): Bilateral pleural effusions CHF improvement Crackle bilateral in lungs Diminished breath sounds in left lung On oxygen going from 3L to 1L Pallor and 1+ edema Labs ordered and pending review Subjective Update: 04/01/19 afebrile/ vss but weakness and fatigue cont/ anorexia little improved nausea resolved / up to b.r and tolerating but wiped out after/ sleep better last night after meds . tired this am and sleeping . /./ anxiety a little better. i/os stable / weight up 1.5 lb. good spirits but anxiaous . p.e. lungs decreased and crackles both bases rt > cor rrra nd murmur precordial 2/6 abd benign wound clean sternal wound a nd healing. skin edematous legs and arms pits easily no skin tears / mild bruising . lab reviewed trop stable lytes stable creatinine up slightly //// climbing 2.5 k stable 4.5 cbc stable hgn decreased slightly 9.6 t.p critically low / alb very low. bnp 9200 down to 8600. chest xray bilateral effusions . continued increased pulm markings . assess/plan 1)chf stable no ami chronic heart failure cause dialated cardiomyopathy ? ischemic a nd valvular ? mild a.s. suspected and old anterior and inf. mi by ekg. 2) chronic renal failure grade 3 and monitoring give lasix today and consider spa bolus sec to hypoproteinemia 3)anemia s/p cabg on mtv with iron / consider repeat transfusion sec to heart failure and renal failure 4)malnutrition severe and needs to be corrected and she is not wanting tube feeding . 5)weakness expected and pt working with her / needs extended rehab when stabilized . 6)anxiety and mild cog. impairment worsened in past couple weeks but no delusions r/o early dementia . boh Functional Status: Reports: Pain Controlled - Review of Systems General: Reports: Weakness, Fatigue, Appetite Pulmonary: Reports: Shortness of Breath Cardiovascular: Reports: Dyspnea on Exertion, Orthopnea, Edema Gastrointestinal: Reports: Decreased Appetite Genitourinary: Reports: No Symptoms Musculoskeletal: Reports: Joint Pain Skin: Reports: Pallor, Bruising Neurological: Reports: No Symptoms Psychiatric: Reports: No Symptoms, Anxiety - Patient Data Vitals - Most Recent: Last Vital Signs Temp 36.5 C 04/02/19 12:00 Pulse 69 04/02/19 09:07 Resp 16 04/02/19 12:00 BP 144/44 H 04/02/19 12:00 Pulse Ox 94 L 04/02/19 12:00 Weight - Most Recent: 156 kg I&O - Last 24 Hours: Intake & Output 04/01/19 04/02/19 04/02/19 22:59 06:59 14:59 Intake Total 500 Output Total 350 0 400 Balance 150 0 -400 Lab Results Last 24 Hours: Laboratory Results - last 24 hr 04/02/19 04/02/19 04/02/19 Range/Units 04:30 04:30 04:30 WBC 9.20 (3.98-10.04) K/mm3 RBC 3.40 L (3.98-5.22) M/mm3 Hgb 9.5 L (11.2-15.7) gm/L Hct 30.5 L (34.1-44.9) % MCV 89.7 (79.4-94.8) fl MCH 27.9 (25.6-32.2) pg MCHC 31.1 L (32.2-35.5) g/dl RDW Std Deviation 46.1 (36.4-46.3) fL Plt Count 249 (182-369) K/mm3 MPV 9.3 L (9.4-12.3) fl Neut % (Auto) 80.1 H (34.0-71.1) % Lymph % (Auto) 7.8 L (19.3-51.7) % [place] % (Auto) 7.3 (4.7-12.5) % Eos % (Auto) 4.2 (0.7-5.8) Baso % (Auto) 0.1 (0.1-1.2) % Neut # (Auto) 7.36 H (1.56-6.13) K/mm3 Lymph # (Auto) 0.72 L (1.18-3.74) K/mm3 [place] # (Auto) 0.67 H (0.24-0.36) K/mm3 Eos # (Auto) 0.39 H (0.04-0.36) K/mm3 Baso # (Auto) 0.01 (0.01-0.08) K/mm3 Manual Slide Review Normal smear Sodium 132 L (136-145) mEq/L Potassium 5.1 (3.5-5.1) mEq/L Chloride 96 L (98-107) mEq/L Carbon Dioxide 28 (21-32) mEq/L Anion Gap 13.1 (5-15) BUN 73 H (7-18) mg/dL Creatinine 2.7 H (0.55-1.02) mg/dL Est Cr Clr Drug Dosing 12.37 mL/min Estimated GFR (MDRD) 17 (>60) mL/min BUN/Creatinine Ratio 27.0 H (14-18) Glucose 120 H (83-115) mg/dL Calcium 8.7 (8.5-10.1) mg/dL Magnesium 2.6 H (1.8-2.4) mg/dl Total Bilirubin 0.7 (0.2-1.0) mg/dL AST 14 L (15-37) U/L ALT 12 L (14-59) U/L Alkaline Phosphatase 88 (46-116) U/L C-Reactive Protein 12.7 H* (<1.0) mg/dL NT-Pro-B Natriuret Pep (0-450) pg/mL Total Protein 6.1 L (6.4-8.2) g/dl Albumin 2.8 L (3.4-5.0) g/dl Globulin 3.3 gm/dL Albumin/Globulin Ratio 0.9 L (1-2) Blood Type Gel Antibody Screen Crossmatch 04/02/19 04/02/19 Range/Units 04:30 04:30 WBC (3.98-10.04) K/mm3 RBC (3.98-5.22) M/mm3 Hgb (11.2-15.7) gm/L Hct (34.1-44.9) % MCV (79.4-94.8) fl MCH (25.6-32.2) pg MCHC (32.2-35.5) g/dl RDW Std Deviation (36.4-46.3) fL Plt Count (182-369) K/mm3 MPV (9.4-12.3) fl Neut % (Auto) (34.0-71.1) % Lymph % (Auto) (19.3-51.7) % [place] % (Auto) (4.7-12.5) % Eos % (Auto) (0.7-5.8) Baso % (Auto) (0.1-1.2) % Neut # (Auto) (1.56-6.13) K/mm3 Lymph # (Auto) (1.18-3.74) K/mm3 [place] # (Auto) (0.24-0.36) K/mm3 Eos # (Auto) (0.04-0.36) K/mm3 Baso # (Auto) (0.01-0.08) K/mm3 Manual Slide Review Sodium (136-145) mEq/L Potassium (3.5-5.1) mEq/L Chloride (98-107) mEq/L Carbon Dioxide (21-32) mEq/L Anion Gap (5-15) BUN (7-18) mg/dL Creatinine (0.55-1.02) mg/dL Est Cr Clr Drug Dosing mL/min Estimated GFR (MDRD) (>60) mL/min BUN/Creatinine Ratio (14-18) Glucose (83-115) mg/dL Calcium (8.5-10.1) mg/dL Magnesium (1.8-2.4) mg/dl Total Bilirubin (0.2-1.0) mg/dL AST (15-37) U/L ALT (14-59) U/L Alkaline Phosphatase (46-116) U/L C-Reactive Protein (<1.0) mg/dL NT-Pro-B Natriuret Pep 9749 H (0-450) pg/mL Total Protein (6.4-8.2) g/dl Albumin (3.4-5.0) g/dl Globulin gm/dL Albumin/Globulin Ratio (1-2) Blood Type O POSITIVE Gel Antibody Screen Negative Crossmatch See Detail Valente Results Last 24 Hours: Microbiology 03/28/19 20:05 Aerobic Blood Culture - Preliminary Blood - Venous - Lab Draw NO GROWTH AFTER 4 DAYS Anaerobic Blood Culture - Preliminary NO GROWTH AFTER 4 DAYS 03/28/19 19:50 Aerobic Blood Culture - Preliminary Blood - Venous NO GROWTH AFTER 4 DAYS Anaerobic Blood Culture - Preliminary NO GROWTH AFTER 4 DAYS Med Orders - Current: Current Medications Acetaminophen (Tylenol) 650 mg PO Q6H PRN PRN Reason: Pain (mild 1-3) Hydrocodone Bitart/Acetaminophen ([place] 325-5 Mg) 1 tab PO Q4H PRN PRN Reason: Pain (moderate 4-6) Last Admin: 04/01/19 01:58 Dose: 1 tab Albuterol/Ipratropium (Duoneb 3.0-0.5 Mg/3 Ml) 3 ml NEB Q4H PRN PRN Reason: Shortness Of Breath/wheezing Last Admin: 04/02/19 04:33 Dose: 3 ml Aspirin (Halfprin) 81 mg PO DAILY PHUONG Last Admin: 04/02/19 08:45 Dose: 81 mg Bisacodyl (Dulcolax) 5 mg PO DAILY PRN PRN Reason: Constipation Cholecalciferol (Vitamin D3) 5,000 unit PO DAILY [facility] Last Admin: 04/02/19 08:46 Dose: 5,000 unit Docusate Sodium (Colace) 100 mg PO BID PRN PRN Reason: Constipation Last Admin: 03/30/19 21:52 Dose: 100 mg Furosemide (Lasix) 40 mg PO DAILY [facility] Last Admin: 04/02/19 08:45 Dose: 40 mg Guaifenesin (Mucinex) 600 mg PO DAILY PRN PRN Reason: Cough Last Admin: 03/30/19 21:52 Dose: 600 mg Hydromorphone HCl (Dilaudid) 0.25 mg IVPUSH Q2H PRN PRN Reason: Pain (severe 7-10) Last Admin: 03/30/19 11:28 Dose: 0.5 mg Promethazine HCl 6.25 mg/ (Sodium Chloride) 50.25 mls @ 100 mls/hr IV Q6H PRN PRN Reason: Nausea/Vomiting Lorazepam (Ativan) 2 mg IVPUSH Q4H PRN PRN Reason: Seizures Lorazepam (Ativan) 0.5 mg IVPUSH Q4H PRN; Protocol PRN Reason: Anxiety Last Admin: 03/31/19 01:43 Dose: 0.5 mg Losartan Potassium (Cozaar) 12.5 mg PO DAILY [facility] Melatonin (Melatonin) 3 - 9 mg PO BEDTIME PRN PRN Reason: Sleep Last Admin: 04/01/19 21:12 Dose: 3 mg Metoprolol Tartrate (Lopressor) 25 mg PO BID [facility] Morphine Sulfate (Morphine) 0.5 mg IVPUSH Q4H PRN PRN Reason: Dyspnea Last Admin: 03/29/19 23:40 Dose: 0.5 mg Multivitamins (Thera) 1 each PO DAILY [facility] Last Admin: 04/02/19 08:47 Dose: 1 each Nitroglycerin (Nitrostat) 0.4 mg SL ASDIRECTED PRN PRN Reason: Chest Pain Ondansetron HCl (Zofran) 4 mg IV Q6H PRN PRN Reason: Nausea/Vomiting Ondansetron HCl (Zofran Odt) 4 mg PO Q8H PRN PRN Reason: Nausea/Vomiting Polyethylene Glycol (Miralax) 17 gm PO DAILY PRN PRN Reason: Constipation Saccharomyces Boulardii (Florastor) 250 mg PO DAILY [facility] Last Admin: 04/02/19 08:47 Dose: 250 mg Senna (Senna) 8.6 - 17.2 mg PO DAILY PRN PRN Reason: Constipation Senna/Docusate Sodium (Senna Plus) 1 tab PO BID PRN PRN Reason: Constipation Sertraline HCl (Zoloft) 25 mg PO DAILY [facility] Sodium Chloride (Saline Flush) 10 ml FLUSH ASDIRECTED PRN PRN Reason: Keep Vein Open Last Admin: 03/31/19 01:42 Dose: 10 ml Temazepam (Restoril) 7.5 mg PO BEDTIME PRN PRN Reason: Insomnia Last Admin: 03/30/19 21:52 Dose: 7.5 mg Discontinued Medications Amlodipine Besylate (Norvasc) 5 mg PO DAILY [facility] Last Admin: 03/31/19 08:32 Dose: 5 mg Amlodipine Besylate (Norvasc) 2.5 mg PO DAILY [facility] Last Admin: 04/02/19 09:06 Dose: 2.5 mg Azithromycin (Zithromax) 250 mg PO DAILY [facility] Cephalexin (Keflex) 250 mg PO TID [facility] Stop: 03/29/19 23:00 Last Admin: 03/29/19 20:06 Dose: 250 mg Furosemide (Lasix) 40 mg IVPUSH NOW ONE Stop: 03/28/19 19:35 Last Admin: 03/28/19 20:02 Dose: 40 mg Furosemide (Lasix) 60 mg PO DAILY [facility] Last Admin: 03/31/19 08:29 Dose: 60 mg Furosemide (Lasix) 60 mg IVPUSH NOW ONE Stop: 03/28/19 21:32 Last Admin: 03/28/19 22:08 Dose: 60 mg Furosemide (Lasix) 40 mg IVPUSH NOW ONE Stop: 04/01/19 10:25 Last Admin: 04/01/19 10:56 Dose: 40 mg Furosemide (Lasix) 40 mg IVPUSH NOW ONE Stop: 04/01/19 17:01 Last Admin: 04/01/19 17:40 Dose: 40 mg Guaifenesin/Phenylephrine HCl (Robitussin Dm) 5 ml PO Q6H PRN PRN Reason: cough Last Admin: 03/30/19 21:52 Dose: 5 ml Hydrochlorothiazide (Hydrochlorothiazide) 12.5 mg PO BIDDIURETIC PHUONG Stop: 04/02/19 06:01 Last Admin: 04/02/19 06:24 Dose: 12.5 mg Azithromycin 500 mg/ Sodium (Chloride) 250 mls @ 250 mls/hr IV ONETIME ONE Stop: 03/28/19 22:59 Last Admin: 03/28/19 23:08 Dose: 250 mls/hr Albumin Human (Flexbumin 25%) 12.5 gm in 50 mls @ 100 mls/hr IV ONETIME ONE Stop: 04/01/19 13:44 Last Admin: 04/01/19 15:53 Dose: Not Given Albumin Human (Flexbumin 25%) 12.5 gm in 50 mls @ 100 mls/hr IV Q1H PHUONG Stop: 04/01/19 20:59 Last Admin: 04/01/19 20:11 Dose: 100 mls/hr Albumin Human (Flexbumin 25%) 12.5 gm in 50 mls @ 100 mls/hr IV Q1H PHUONG Stop: 04/01/19 14:59 Last Admin: 04/01/19 14:40 Dose: 100 mls/hr Lidocaine HCl (Xylocaine 1%) 10 ml INJECT ONETIME ONE Stop: 03/29/19 09:01 Last Admin: 03/29/19 10:02 Dose: Not Given Lorazepam (Ativan) 0.25 mg IVPUSH ONETIME ONE Stop: 03/29/19 09:26 Last Admin: 03/29/19 10:01 Dose: Not Given Losartan Potassium (Cozaar) 25 mg PO DAILY PHUONG Last Admin: 04/02/19 09:06 Dose: 25 mg Metoprolol Tartrate (Lopressor) 37.5 mg PO Q12HR [facility] Last Admin: 04/02/19 09:07 Dose: 37.5 mg Non-Formulary Medication (Potassium Chloride [Potassium Chloride]) 20 meq PO Q2D [facility] Last Admin: 03/28/19 23:13 Dose: Not Given Ondansetron HCl (Zofran Odt) 8 mg PO BID@0700,1900 [facility] Stop: 04/02/19 19:00 Last Admin: 04/02/19 06:25 Dose: 8 mg Pantoprazole Sodium (Protonix Iv) 40 mg IV Q12H [facility] Last Admin: 03/29/19 06:32 Dose: 40 mg Pantoprazole Sodium (Protonix) 40 mg PO BID [facility] Last Admin: 04/02/19 08:45 Dose: 40 mg Potassium Chloride (Klor-Con M20) 20 meq PO Q2D [facility] Sertraline HCl (Zoloft) 50 mg PO DAILY [facility] Last Admin: 04/02/19 08:44 Dose: 50 mg - Exam Quality Assessment: Supplemental Oxygen General: Alert, Oriented HEENT: Pupils Equal, Pupils Reactive, EOMI, Mucous Membr. Moist/[place]: Supple Lungs: Clear to Auscultation, Normal Respiratory Effort, Decreased Breath Sounds , Crackles Cardiovascular: Regular Rate, Regular Rhythm GI/Abdominal Exam: Normal Bowel Sounds, Soft, Non-Tender, No Organomegaly, No Distention, No Abnormal Bruit, No Mass, Pelvis Stable (Female) Exam: No: Normal External Exam, Normal Speculum Exam, Normal Bimanual Exam Back Exam: Normal Inspection, Full Range of Motion Extremities: Normal Inspection, Normal Range of Motion, Non-Tender, No Pedal Edema, Normal Capillary Refill Skin: Warm, Dry, Intact Wound/Incisions: Healing Well Neurological: No New Focal Deficit Psy/Mental Status: Alert, Normal Affect, Normal Mood - Problem List & Annotations (1) Acute exacerbation of congestive heart failure SNOMED Code(s): 394444233, 36294041912733 Code(s): I50.9 - HEART FAILURE, UNSPECIFIED Status: Acute Priority: High Current Visit: Yes Onset Date: 03/31/19 Qualifiers: Heart failure type: diastolic Qualified Code(s): I50.33 - Acute on chronic diastolic (congestive) heart failure (2) Anemia SNOMED Code(s): 949980232 Code(s): D64.9 - ANEMIA, UNSPECIFIED Status: Acute Priority: Medium Current Visit: Yes Onset Date: 03/31/19 Qualifiers: Anemia type: due to chronic kidney disease Chronic kidney disease stage: stage 3 (moderate) Qualified Code(s): N18.3 - Chronic kidney disease, stage 3 (moderate); D63.1 - Anemia in chronic kidney disease (3) Bilateral pleural effusion SNOMED Code(s): 625538852 Code(s): J90 - PLEURAL EFFUSION, NOT ELSEWHERE CLASSIFIED Status: Acute Priority: High Current Visit: Yes Onset Date: 03/31/19 (4) Chronic renal insufficiency, stage IV (severe) SNOMED Code(s): 462724598 Code(s): N18.4 - CHRONIC KIDNEY DISEASE, STAGE 4 (SEVERE) Status: Acute Priority: High Current Visit: Yes Onset Date: 03/31/19 (5) Hypoxemia SNOMED Code(s): 652835915 Code(s): R09.02 - HYPOXEMIA Status: Acute Priority: Medium Current Visit: Yes Onset Date: 03/31/19 - Problem List Review Problem List Initiated/Reviewed/Updated: Yes - My Orders Last 24 Hours: My Active Orders 04/02/19 04:30 RED BLOOD CELLS LP [BBK] Routine TYPE AND SCREEN [BBK] Routine 04/02/19 12:03 Ondansetron [Zofran ODT] 4 mg PO Q8H PRN Transfuse Red Blood Cells [COMM] Routine 04/02/19 12:34 Blood Transfusion Reflex Orders [OM.PC] Routine 04/02/19 12:41 Admission Status [Patient Status] [ADT] Routine 04/02/19 21:00 Metoprolol Tartrate [Lopressor] 25 mg PO BID 04/03/19 06:00 BMP [BASIC METABOLIC PANEL,BMP] [CHEM] Routine 04/03/19 09:00 Losartan [Cozaar] 12.5 mg PO DAILY Sertraline [Zoloft] 25 mg PO DAILY - Plan Plan:: Assessment: Acute: B/L Pleural Effusions - CXR shows moderate size b/l pleural effusions - Received IV lasix in ED last night - Offered thoracentesis-scheduled for this morning - Had left sided thoracentesis and she tolerated the procedure w/o any issues - We plan for the right side at lunch time CHF - Carries a hx/o HF with Unknown EF - Significant lower extremity edema and b/l pleural effusion - CXR shows moderate size b/l pleural effusions - ProBNP of 9032 - Heat Failure regimen: diuretics, salt/fluid restriction, daily weight check and Is/Os - Goal is to get her to dry weight CAD S/p 2 Vessel CABG - 2 weeks ago in [place] (Distal Circumflex and SANCHEZ to LAD) - Continue ASA and Metoprolol - ASA diet Hyperglycemia with DM2, Stable - BS 130-150s - Diet controlled - A1C is 5.70 - Monitor BS level Generalized Weakness - 2/2 current illness Resolved: S/p Respiratory Distress/Dyspnea - 2/2 worsening pleural effusions - Her lasix dose was just increased to 60 mg po daily from 40 mg daily - Supplemental O2 and PRN NIPPV S/p Mild Hypokalemia - K of 5.2--> 5.1 - Takes K supplement - Hold supplement and continue to monitor Chronic: HF with Unknown EF, HTN, OA/DJD, Normocytic Normochromic Anemia, and DM2, diet controlled Plan: She is clinically much better Heart Failure Regimen RT/PT/OT to assess and treat IS as directed and ambulate as tolerated Fall Precautions SW/CM for d/c planning Code status: full Additional orders as above Prognosis good Patient has underlying CKD Stage 3-4. Her diuretics have been held and we will resume it tomorrow. Her family was updated about her clinical progress, treatment and discharge care plan. Informed them SW and CM will be in to speak with them. 03/31/2019 Assessment: Bilateral pleural effusions CHF improvement Crackle bilateral in lungs Diminished breath sounds in left lung On oxygen going from 3L to 1L Pallor and 1+ edema Labs ordered and pending review Plan: Discussed walking Start Zofran twice a day for 48 hours Start multivitamin with iron Start Losartan 25 MG Decrease amlodipine to half Decrease Lasix to 40 MG daily Discontinue Guanfacine boh 04/01/19 lasix i.v 40 now and 40 after albumin infusion / ami and acute pulm edema ruled out and treated resp. alb 100 grams monitor labs in am increase activity . eat if able ? marinol mtv with iron . monitor flucuating b.p and tachicardia resolved mostly . boh
--- NOTE | 2019-04-02 14:54 | PCM.PN ---
- General Info Date of Service: 04/01/19 Admission Dx/Problem (Free Text): Bilateral pleural effusions CHF improvement Crackle bilateral in lungs Diminished breath sounds in left lung On oxygen going from 3L to 1L Pallor and 1+ edema Labs ordered and pending review Subjective Update: 04/01/19 afebrile/ vss but weakness and fatigue cont/ anorexia little improved nausea resolved / up to b.r and tolerating but wiped out after/ sleep better last night after meds . tired this am and sleeping . /./ anxiety a little better. i/os stable / weight up 1.5 lb. good spirits but anxiaous . p.e. lungs decreased and crackles both bases rt > cor rrra nd murmur precordial 2/6 abd benign wound clean sternal wound a nd healing. skin edematous legs and arms pits easily no skin tears / mild bruising . lab reviewed trop stable lytes stable creatinine up slightly //// climbing 2.5 k stable 4.5 cbc stable hgn decreased slightly 9.6 t.p critically low / alb very low. bnp 9200 down to 8600. chest xray bilateral effusions . continued increased pulm markings . assess/plan 1)chf stable no ami chronic heart failure cause dialated cardiomyopathy ? ischemic a nd valvular ? mild a.s. suspected and old anterior and inf. mi by ekg. 2) chronic renal failure grade 3 and monitoring give lasix today and consider spa bolus sec to hypoproteinemia 3)anemia s/p cabg on mtv with iron / consider repeat transfusion sec to heart failure and renal failure 4)malnutrition severe and needs to be corrected and she is not wanting tube feeding . 5)weakness expected and pt working with her / needs extended rehab when stabilized . 6)anxiety and mild cog. impairment worsened in past couple weeks but no delusions r/o early dementia . boh Functional Status: Reports: Pain Controlled, Incentive Spirometry - Review of Systems General: Reports: Weakness, Fatigue, Malaise, Appetite HEENT: Reports: No Symptoms Pulmonary: Reports: Shortness of Breath, Wheezing Cardiovascular: Reports: No Symptoms Gastrointestinal: Reports: Decreased Appetite, Nausea Genitourinary: Reports: No Symptoms Musculoskeletal: Reports: No Symptoms Skin: Reports: No Symptoms Neurological: Reports: No Symptoms Psychiatric: Reports: No Symptoms, Anxiety - Patient Data Vitals - Most Recent: Last Vital Signs Temp 36.5 C 04/02/19 12:00 Pulse 69 04/02/19 09:07 Resp 16 04/02/19 12:00 BP 144/44 H 04/02/19 12:00 Pulse Ox 94 L 04/02/19 12:00 Weight - Most Recent: 156 kg I&O - Last 24 Hours: Intake & Output 04/01/19 04/02/19 04/02/19 22:59 06:59 14:59 Intake Total 500 Output Total 350 0 400 Balance 150 0 -400 Lab Results Last 24 Hours: Laboratory Results - last 24 hr 04/02/19 04/02/19 04/02/19 Range/Units 04:30 04:30 04:30 WBC 9.20 (3.98-10.04) K/mm3 RBC 3.40 L (3.98-5.22) M/mm3 Hgb 9.5 L (11.2-15.7) gm/L Hct 30.5 L (34.1-44.9) % MCV 89.7 (79.4-94.8) fl MCH 27.9 (25.6-32.2) pg MCHC 31.1 L (32.2-35.5) g/dl RDW Std Deviation 46.1 (36.4-46.3) fL Plt Count 249 (182-369) K/mm3 MPV 9.3 L (9.4-12.3) fl Neut % (Auto) 80.1 H (34.0-71.1) % Lymph % (Auto) 7.8 L (19.3-51.7) % Davidson % (Auto) 7.3 (4.7-12.5) % Eos % (Auto) 4.2 (0.7-5.8) Baso % (Auto) 0.1 (0.1-1.2) % Neut # (Auto) 7.36 H (1.56-6.13) K/mm3 Lymph # (Auto) 0.72 L (1.18-3.74) K/mm3 Davidson # (Auto) 0.67 H (0.24-0.36) K/mm3 Eos # (Auto) 0.39 H (0.04-0.36) K/mm3 Baso # (Auto) 0.01 (0.01-0.08) K/mm3 Manual Slide Review Normal smear Sodium 132 L (136-145) mEq/L Potassium 5.1 (3.5-5.1) mEq/L Chloride 96 L (98-107) mEq/L Carbon Dioxide 28 (21-32) mEq/L Anion Gap 13.1 (5-15) BUN 73 H (7-18) mg/dL Creatinine 2.7 H (0.55-1.02) mg/dL Est Cr Clr Drug Dosing 12.37 mL/min Estimated GFR (MDRD) 17 (>60) mL/min BUN/Creatinine Ratio 27.0 H (14-18) Glucose 120 H (83-115) mg/dL Calcium 8.7 (8.5-10.1) mg/dL Magnesium 2.6 H (1.8-2.4) mg/dl Total Bilirubin 0.7 (0.2-1.0) mg/dL AST 14 L (15-37) U/L ALT 12 L (14-59) U/L Alkaline Phosphatase 88 (46-116) U/L C-Reactive Protein 12.7 H* (<1.0) mg/dL NT-Pro-B Natriuret Pep (0-450) pg/mL Total Protein 6.1 L (6.4-8.2) g/dl Albumin 2.8 L (3.4-5.0) g/dl Globulin 3.3 gm/dL Albumin/Globulin Ratio 0.9 L (1-2) Blood Type Gel Antibody Screen Crossmatch 04/02/19 04/02/19 Range/Units 04:30 04:30 WBC (3.98-10.04) K/mm3 RBC (3.98-5.22) M/mm3 Hgb (11.2-15.7) gm/L Hct (34.1-44.9) % MCV (79.4-94.8) fl MCH (25.6-32.2) pg MCHC (32.2-35.5) g/dl RDW Std Deviation (36.4-46.3) fL Plt Count (182-369) K/mm3 MPV (9.4-12.3) fl Neut % (Auto) (34.0-71.1) % Lymph % (Auto) (19.3-51.7) % Davidson % (Auto) (4.7-12.5) % Eos % (Auto) (0.7-5.8) Baso % (Auto) (0.1-1.2) % Neut # (Auto) (1.56-6.13) K/mm3 Lymph # (Auto) (1.18-3.74) K/mm3 Davidson # (Auto) (0.24-0.36) K/mm3 Eos # (Auto) (0.04-0.36) K/mm3 Baso # (Auto) (0.01-0.08) K/mm3 Manual Slide Review Sodium (136-145) mEq/L Potassium (3.5-5.1) mEq/L Chloride (98-107) mEq/L Carbon Dioxide (21-32) mEq/L Anion Gap (5-15) BUN (7-18) mg/dL Creatinine (0.55-1.02) mg/dL Est Cr Clr Drug Dosing mL/min Estimated GFR (MDRD) (>60) mL/min BUN/Creatinine Ratio (14-18) Glucose (83-115) mg/dL Calcium (8.5-10.1) mg/dL Magnesium (1.8-2.4) mg/dl Total Bilirubin (0.2-1.0) mg/dL AST (15-37) U/L ALT (14-59) U/L Alkaline Phosphatase (46-116) U/L C-Reactive Protein (<1.0) mg/dL NT-Pro-B Natriuret Pep 9749 H (0-450) pg/mL Total Protein (6.4-8.2) g/dl Albumin (3.4-5.0) g/dl Globulin gm/dL Albumin/Globulin Ratio (1-2) Blood Type O POSITIVE Gel Antibody Screen Negative Crossmatch See Detail Valente Results Last 24 Hours: Microbiology 03/28/19 20:05 Aerobic Blood Culture - Preliminary Blood - Venous - Lab Draw NO GROWTH AFTER 4 DAYS Anaerobic Blood Culture - Preliminary NO GROWTH AFTER 4 DAYS 03/28/19 19:50 Aerobic Blood Culture - Preliminary Blood - Venous NO GROWTH AFTER 4 DAYS Anaerobic Blood Culture - Preliminary NO GROWTH AFTER 4 DAYS Med Orders - Current: Current Medications Acetaminophen (Tylenol) 650 mg PO Q6H PRN PRN Reason: Pain (mild 1-3) Hydrocodone Bitart/Acetaminophen ([place] 325-5 Mg) 1 tab PO Q4H PRN PRN Reason: Pain (moderate 4-6) Last Admin: 04/01/19 01:58 Dose: 1 tab Albuterol/Ipratropium (Duoneb 3.0-0.5 Mg/3 Ml) 3 ml NEB Q4H PRN PRN Reason: Shortness Of Breath/wheezing Last Admin: 04/02/19 04:33 Dose: 3 ml Aspirin (Halfprin) 81 mg PO DAILY [facility] Last Admin: 04/02/19 08:45 Dose: 81 mg Bisacodyl (Dulcolax) 5 mg PO DAILY PRN PRN Reason: Constipation Cholecalciferol (Vitamin D3) 5,000 unit PO DAILY [facility] Last Admin: 04/02/19 08:46 Dose: 5,000 unit Docusate Sodium (Colace) 100 mg PO BID PRN PRN Reason: Constipation Last Admin: 03/30/19 21:52 Dose: 100 mg Furosemide (Lasix) 40 mg PO DAILY [facility] Last Admin: 04/02/19 08:45 Dose: 40 mg Guaifenesin (Mucinex) 600 mg PO DAILY PRN PRN Reason: Cough Last Admin: 03/30/19 21:52 Dose: 600 mg Hydromorphone HCl (Dilaudid) 0.25 mg IVPUSH Q2H PRN PRN Reason: Pain (severe 7-10) Last Admin: 03/30/19 11:28 Dose: 0.5 mg Promethazine HCl 6.25 mg/ (Sodium Chloride) 50.25 mls @ 100 mls/hr IV Q6H PRN PRN Reason: Nausea/Vomiting Lorazepam (Ativan) 2 mg IVPUSH Q4H PRN PRN Reason: Seizures Lorazepam (Ativan) 0.5 mg IVPUSH Q4H PRN; Protocol PRN Reason: Anxiety Last Admin: 03/31/19 01:43 Dose: 0.5 mg Losartan Potassium (Cozaar) 12.5 mg PO DAILY [facility] Melatonin (Melatonin) 3 - 9 mg PO BEDTIME PRN PRN Reason: Sleep Last Admin: 04/01/19 21:12 Dose: 3 mg Metoprolol Tartrate (Lopressor) 25 mg PO BID [facility] Morphine Sulfate (Morphine) 0.5 mg IVPUSH Q4H PRN PRN Reason: Dyspnea Last Admin: 03/29/19 23:40 Dose: 0.5 mg Multivitamins (Thera) 1 each PO DAILY [facility] Last Admin: 04/02/19 08:47 Dose: 1 each Nitroglycerin (Nitrostat) 0.4 mg SL ASDIRECTED PRN PRN Reason: Chest Pain Ondansetron HCl (Zofran) 4 mg IV Q6H PRN PRN Reason: Nausea/Vomiting Ondansetron HCl (Zofran Odt) 4 mg PO Q8H PRN PRN Reason: Nausea/Vomiting Polyethylene Glycol (Miralax) 17 gm PO DAILY PRN PRN Reason: Constipation Saccharomyces Boulardii (Florastor) 250 mg PO DAILY [facility] Last Admin: 04/02/19 08:47 Dose: 250 mg Senna (Senna) 8.6 - 17.2 mg PO DAILY PRN PRN Reason: Constipation Senna/Docusate Sodium (Senna Plus) 1 tab PO BID PRN PRN Reason: Constipation Sertraline HCl (Zoloft) 25 mg PO DAILY [facility] Sodium Chloride (Saline Flush) 10 ml FLUSH ASDIRECTED PRN PRN Reason: Keep Vein Open Last Admin: 03/31/19 01:42 Dose: 10 ml Temazepam (Restoril) 7.5 mg PO BEDTIME PRN PRN Reason: Insomnia Last Admin: 03/30/19 21:52 Dose: 7.5 mg Discontinued Medications Amlodipine Besylate (Norvasc) 5 mg PO DAILY [facility] Last Admin: 03/31/19 08:32 Dose: 5 mg Amlodipine Besylate (Norvasc) 2.5 mg PO DAILY [facility] Last Admin: 04/02/19 09:06 Dose: 2.5 mg Azithromycin (Zithromax) 250 mg PO DAILY [facility] Cephalexin (Keflex) 250 mg PO TID [facility] Stop: 03/29/19 23:00 Last Admin: 03/29/19 20:06 Dose: 250 mg Furosemide (Lasix) 40 mg IVPUSH NOW ONE Stop: 03/28/19 19:35 Last Admin: 03/28/19 20:02 Dose: 40 mg Furosemide (Lasix) 60 mg PO DAILY [facility] Last Admin: 03/31/19 08:29 Dose: 60 mg Furosemide (Lasix) 60 mg IVPUSH NOW ONE Stop: 03/28/19 21:32 Last Admin: 03/28/19 22:08 Dose: 60 mg Furosemide (Lasix) 40 mg IVPUSH NOW ONE Stop: 04/01/19 10:25 Last Admin: 04/01/19 10:56 Dose: 40 mg Furosemide (Lasix) 40 mg IVPUSH NOW ONE Stop: 04/01/19 17:01 Last Admin: 04/01/19 17:40 Dose: 40 mg Guaifenesin/Phenylephrine HCl (Robitussin Dm) 5 ml PO Q6H PRN PRN Reason: cough Last Admin: 03/30/19 21:52 Dose: 5 ml Hydrochlorothiazide (Hydrochlorothiazide) 12.5 mg PO BIDDIURETIC PHUONG Stop: 04/02/19 06:01 Last Admin: 04/02/19 06:24 Dose: 12.5 mg Azithromycin 500 mg/ Sodium (Chloride) 250 mls @ 250 mls/hr IV ONETIME ONE Stop: 03/28/19 22:59 Last Admin: 03/28/19 23:08 Dose: 250 mls/hr Albumin Human (Flexbumin 25%) 12.5 gm in 50 mls @ 100 mls/hr IV ONETIME ONE Stop: 04/01/19 13:44 Last Admin: 04/01/19 15:53 Dose: Not Given Albumin Human (Flexbumin 25%) 12.5 gm in 50 mls @ 100 mls/hr IV Q1H PHUONG Stop: 04/01/19 20:59 Last Admin: 04/01/19 20:11 Dose: 100 mls/hr Albumin Human (Flexbumin 25%) 12.5 gm in 50 mls @ 100 mls/hr IV Q1H PHUONG Stop: 04/01/19 14:59 Last Admin: 04/01/19 14:40 Dose: 100 mls/hr Lidocaine HCl (Xylocaine 1%) 10 ml INJECT ONETIME ONE Stop: 03/29/19 09:01 Last Admin: 03/29/19 10:02 Dose: Not Given Lorazepam (Ativan) 0.25 mg IVPUSH ONETIME ONE Stop: 03/29/19 09:26 Last Admin: 03/29/19 10:01 Dose: Not Given Losartan Potassium (Cozaar) 25 mg PO DAILY [facility] Last Admin: 04/02/19 09:06 Dose: 25 mg Metoprolol Tartrate (Lopressor) 37.5 mg PO Q12HR [facility] Last Admin: 04/02/19 09:07 Dose: 37.5 mg Non-Formulary Medication (Potassium Chloride [Potassium Chloride]) 20 meq PO Q2D [facility] Last Admin: 03/28/19 23:13 Dose: Not Given Ondansetron HCl (Zofran Odt) 8 mg PO BID@0700,1900 [facility] Stop: 04/02/19 19:00 Last Admin: 04/02/19 06:25 Dose: 8 mg Pantoprazole Sodium (Protonix Iv) 40 mg IV Q12H [facility] Last Admin: 03/29/19 06:32 Dose: 40 mg Pantoprazole Sodium (Protonix) 40 mg PO BID [facility] Last Admin: 04/02/19 08:45 Dose: 40 mg Potassium Chloride (Klor-Con M20) 20 meq PO Q2D [facility] Sertraline HCl (Zoloft) 50 mg PO DAILY [facility] Last Admin: 04/02/19 08:44 Dose: 50 mg - Exam Quality Assessment: Supplemental Oxygen General: Alert, Oriented HEENT: Pupils Equal, Pupils Reactive, EOMI, Mucous Membr. Moist/Brave Neck: Supple Lungs: Clear to Auscultation, Normal Respiratory Effort Cardiovascular: Regular Rate, Regular Rhythm GI/Abdominal Exam: Normal Bowel Sounds, Soft, Non-Tender, No Organomegaly, No Distention, No Abnormal Bruit, No Mass, Pelvis Stable (Female) Exam: Normal External Exam, Normal Speculum Exam, Normal Bimanual Exam Back Exam: Normal Inspection, Full Range of Motion Extremities: Normal Inspection, Normal Range of Motion, Non-Tender, No Pedal Edema, Normal Capillary Refill Skin: Warm, Dry, Intact Wound/Incisions: Healing Well Neurological: No New Focal Deficit Psy/Mental Status: Alert, Normal Affect, Normal Mood - Problem List & Annotations (1) Acute exacerbation of congestive heart failure SNOMED Code(s): 724116939, 07345536615488 Code(s): I50.9 - HEART FAILURE, UNSPECIFIED Status: Acute Priority: High Current Visit: Yes Onset Date: 03/31/19 Qualifiers: Heart failure type: diastolic Qualified Code(s): I50.33 - Acute on chronic diastolic (congestive) heart failure (2) Anemia SNOMED Code(s): 505770089 Code(s): D64.9 - ANEMIA, UNSPECIFIED Status: Acute Priority: Medium Current Visit: Yes Onset Date: 03/31/19 Qualifiers: Anemia type: due to chronic kidney disease Chronic kidney disease stage: stage 3 (moderate) Qualified Code(s): N18.3 - Chronic kidney disease, stage 3 (moderate); D63.1 - Anemia in chronic kidney disease Annotation/Comment:: creat 2.5 on lasix pleural effusions same / o2 decreased 3 to 1 liter (3) Bilateral pleural effusion SNOMED Code(s): 566505232 Code(s): J90 - PLEURAL EFFUSION, NOT ELSEWHERE CLASSIFIED Status: Acute Priority: High Current Visit: Yes Onset Date: 03/31/19 Annotation/Comment: : no changes (4) Chronic renal insufficiency, stage IV (severe) SNOMED Code(s): 801020483 Code(s): N18.4 - CHRONIC KIDNEY DISEASE, STAGE 4 (SEVERE) Status: Acute Priority: High Current Visit: Yes Onset Date: 03/31/19 Annotation/Comment: : cont lasix dc hctz (5) Hypoxemia SNOMED Code(s): 592861482 Code(s): R09.02 - HYPOXEMIA Status: Acute Priority: Medium Current Visit: Yes Onset Date: 03/31/19 Annotation/Comment:: 3liter to 1 liter (6) Status post aorto-coronary artery bypass graft SNOMED Code(s): 465856896, 06904637, 263728359 Code(s): Z95.1 - PRESENCE OF AORTOCORONARY BYPASS GRAFT Status: Acute Priority: High Current Visit: Yes Onset Date: 02/01/19 Annotation/Comment: : echo ordered - Problem List Review Problem List Initiated/Reviewed/Updated: Yes - My Orders Last 24 Hours: My Active Orders 04/02/19 04:30 RED BLOOD CELLS LP [BBK] Routine TYPE AND SCREEN [BBK] Routine 04/02/19 12:03 Ondansetron [Zofran ODT] 4 mg PO Q8H PRN Transfuse Red Blood Cells [COMM] Routine 04/02/19 12:34 Blood Transfusion Reflex Orders [OM.PC] Routine 04/02/19 12:41 Admission Status [Patient Status] [ADT] Routine 04/02/19 21:00 Metoprolol Tartrate [Lopressor] 25 mg PO BID 04/03/19 06:00 BMP [BASIC METABOLIC PANEL,BMP] [CHEM] Routine 04/03/19 09:00 Losartan [Cozaar] 12.5 mg PO DAILY Sertraline [Zoloft] 25 mg PO DAILY - Plan Plan:: Assessment: Acute: B/L Pleural Effusions - CXR shows moderate size b/l pleural effusions - Received IV lasix in ED last night - Offered thoracentesis-scheduled for this morning - Had left sided thoracentesis and she tolerated the procedure w/o any issues - We plan for the right side at lunch time CHF - Carries a hx/o HF with Unknown EF - Significant lower extremity edema and b/l pleural effusion - CXR shows moderate size b/l pleural effusions - ProBNP of 9032 - Heat Failure regimen: diuretics, salt/fluid restriction, daily weight check and Is/Os - Goal is to get her to dry weight CAD S/p 2 Vessel CABG - 2 weeks ago in [place] (Distal Circumflex and SANCHEZ to LAD) - Continue ASA and Metoprolol - ASA diet Hyperglycemia with DM2, Stable - BS 130-150s - Diet controlled - A1C is 5.70 - Monitor BS level Generalized Weakness - 2/2 current illness Resolved: S/p Respiratory Distress/Dyspnea - 2/2 worsening pleural effusions - Her lasix dose was just increased to 60 mg po daily from 40 mg daily - Supplemental O2 and PRN NIPPV S/p Mild Hypokalemia - K of 5.2--> 5.1 - Takes K supplement - Hold supplement and continue to monitor Chronic: HF with Unknown EF, HTN, OA/DJD, Normocytic Normochromic Anemia, and DM2, diet controlled Plan: She is clinically much better Heart Failure Regimen RT/PT/OT to assess and treat IS as directed and ambulate as tolerated Fall Precautions SW/CM for d/c planning Code status: full Additional orders as above Prognosis good Patient has underlying CKD Stage 3-4. Her diuretics have been held and we will resume it tomorrow. Her family was updated about her clinical progress, treatment and discharge care plan. Informed them SW and CM will be in to speak with them. 03/31/2019 Assessment: Bilateral pleural effusions CHF improvement Crackle bilateral in lungs Diminished breath sounds in left lung On oxygen going from 3L to 1L Pallor and 1+ edema Labs ordered and pending review Plan: Discussed walking Start Zofran twice a day for 48 hours Start multivitamin with iron Start Losartan 25 MG Decrease amlodipine to half Decrease Lasix to 40 MG daily Discontinue Guanfacine boh 04/01/19 lasix i.v 40 now and 40 after albumin infusion / ami and acute pulm edema ruled out and treated resp. alb 100 grams monitor labs in am increase activity . eat if able ? marinol mtv with iron . monitor flucuating b.p and tachicardia resolved mostly . boh
[2019-04-02] MEDS ORDERED: Sodium Chloride 0.9% 50 ML ONE (15:21)
[2019-04-02] MEDS ORDERED: Sodium Chloride 0.9% 50 ML IV SCH (15:30)
[2019-04-02] MEDS: Melatonin 3 MG Tab PO PRN (20:18)
[2019-04-02] MEDS ORDERED: Potassium Chloride 20 MEQ Tab.ER PO SCH (21:30)
[2019-04-03] MEDS: Albuterol/Ipratropium 3.0-0.5 MG/3 ML Neb Soln NEB PRN ×2 (04:31→08:55)
--- NOTE | 2019-04-03 08:28 | CR ---
Chest: Portable view of the chest was obtained. Comparison: Prior chest x-rays of 03/31/19 and 03/30/19. Small bilateral pleural effusions are noted. Mild bibasilar densities are seen. Basilar density slightly changing in configuration from prior study most likely due to changing areas of atelectasis. Heart is enlarged. Pulmonary vessels remain slightly congested. Impression: 1. Small bilateral pleural effusions as well as probable changing bibasilar atelectasis from previous study. 2. Other stable findings as noted above. Diagnostic code #3 I agree with preliminary report from [facility], finalized on 04/01/19, 12:16 PM Central Time
[2019-04-03] MEDS: Multivitamins,Therapeutic Tab PO SCH (08:47)
[2019-04-03] MEDS: Saccharomyces Boulardii (Probiotic) 250 MG Cap PO SCH (08:47)
[2019-04-03] MEDS: Aspirin 81 MG Tab.EC PO SCH (08:47)
[2019-04-03] MEDS: Metoprolol Tartrate 25 MG Tab PO SCH (08:48)
[2019-04-03] MEDS: Cholecalciferol (Vitamin D3) 5,000 UNIT Tab PO SCH (08:49)
[2019-04-03] MEDS ORDERED: Sertraline 25 MG Tab PO SCH (09:00)
[2019-04-03] MEDS ORDERED: Losartan 25 MG Tab PO SCH (09:00)
[2019-04-03] MEDS ORDERED: Furosemide 40 MG/4 ML VIAL IVPUSH SCH (12:45)
--- NOTE | 2019-04-03 12:52 | CR ---
Chest: Portable view of the chest was obtained. Comparison: Previous chest x-ray of 04/02/19. Increased density is noted within both sides of the chest which remains stable from prior chest x-ray. No new parenchymal change is seen from previous study. Sternotomy wires are noted. Scoliosis is noted within the spine. Heart size is not enlarged. Impression: 1. Stable chest x-ray from previous study performed one day earlier. Nothing acute has occurred from previous study. Diagnostic code #3
[2019-04-03] MEDS: LORazepam 2 MG/ML SDV IVPUSH PRN (12:56)
--- NOTE | 2019-04-03 13:26 | PCM.DCSUM1 ---
Discharge Summary - Hospital Course HPI Initial Comments: This is an 88 yo elderly white female with past medical hx/o HF with Unknown EF , HTN, OA/DJD, Normocytic Normochromic Anemia, and DM2, diet controlled who comes in for worsening shortness of breath associated with dyspnea and peripheral edema over the past few days. She carries a hx/o HF with unknown EF. She was on Lasix 40 mg po daily but recently increased to 60 mg po daily. She has hx/o COPD per ED notes but patient's niece refutes the diagnosis. She is currently on 2L NC all times. She states she has been sleeping sitting up for the past couple of days. Patient recently underwent 2 Vessel CABG in [place] about 2 weeks ago (Distal Circumflex and SANCHEZ to LAD). She was doing just fine up on the past few days. She does not remember if she had a 2D echo done during her procedure. Her initial work up in ED showed a CBC remarkable for RBC of 3.76, Hgb of 10.8, Hct of 32.8, MPV of 8.7 and Neutrophils of 90%. Her Chemistry was significant for NA of 134, K of 5.2, Cl of 97, AG of 15.2, BUN of 81, Cr of 1.9, BS of 150, Mg of 2.8, CKMB of 3.7, CRP of 11.8, ProBNP of 9032 and Albumin of 2.9. Her UA was negative for UTI. Her CXR showed moderate size b/l pleural effusions with pulmonary congestion. Patient was admitted overnight primarily for medical management of heart failure and pleural effusions. Diagnosis: Stroke: No - Discharge Data Discharge Date: 04/03/19 Discharge Disposition: DC/Tfer to Acute Hospital 02 Condition: Serious - Discharge Diagnosis/Problem(s) (1) Acute exacerbation of congestive heart failure SNOMED Code(s): 641696958, 96008403898830 ICD Code: I50.9 - HEART FAILURE, UNSPECIFIED Status: Acute Priority: High Current Visit: Yes Onset Date: 03/31/19 Qualifiers: Heart failure type: diastolic Qualified Code(s): I50.33 - Acute on chronic diastolic (congestive) heart failure (2) Bilateral pleural effusion SNOMED Code(s): 179533441 ICD Code: J90 - PLEURAL EFFUSION, NOT ELSEWHERE CLASSIFIED Status: Acute Priority: High Current Visit: Yes Onset Date: 03/31/19 Problem Details: no changes (3) Chronic renal insufficiency, stage IV (severe) SNOMED Code(s): 300799132 ICD Code: N18.4 - CHRONIC KIDNEY DISEASE, STAGE 4 (SEVERE) Status: Acute Priority: High Current Visit: Yes Onset Date: 03/31/19 Problem Details: cont lasix dc hctz (4) Status post aorto-coronary artery bypass graft SNOMED Code(s): 554975997, 92236700, 179180057 ICD Code: Z95.1 - PRESENCE OF AORTOCORONARY BYPASS GRAFT Status: Acute Priority: High Current Visit: Yes Onset Date: 02/01/19 Problem Details: echo ordered (5) Acute venous stasis dermatitis of left lower extremity SNOMED Code(s): 58959980 ICD Code: I87.2 - VENOUS INSUFFICIENCY (CHRONIC) (PERIPHERAL) Status: Acute Current Visit: No - Patient Summary/Data Operative Procedure(s) Performed: bilateral thoracentesis Consults: Consultations 03/28/19 21:41 Consult to Case Management/Librarian Assistant [CONS] Routine Consult to Spiritual Care [CONS] Routine OT Evaluation and Treatment [CONS] Routine PT Evaluation and Treatment [CONS] Routine Respiratory Care Assess and Treatment [CONS] Routine Hospital Course: patient was admitted for diuresis and bilateral pleura effusions. Thoracentesis was done and over 1000 mL of hemorrhagic fluid was removed from both sides. Unfortunately, patient's creatinine continued to increase over the last 6 days. Lasix was held this morning secondary to the worsening kidney function. Patient also has increased need for FiO2 which is up to 3 L. Echocardiogram showed: 1. Left ventricle ejection fraction, by visual estimation, is 55-60%. 2. Normal right ventricular systolic function. 3. There is mild aortic valve sclerosis without stenosis. 4. Mild mitral valve regurgitation. 5. Trace aortic valve regurgitation. 6. Mild tricuspid valve regurgitation. 7. The right ventricle systolic pressure is normal at 26.0 mmHg. 8. No regional wall motion abnormalities. - Discharge Plan *PRESCRIPTION DRUG MONITORING PROGRAM REVIEWED*: Not Applicable *COPY OF PRESCRIPTION DRUG MONITORING REPORT IN PATIENT [place]: Not Applicable Home Medications: Home Meds Acetaminophen [Pain & Fever] 650 mg PO Q6H PRN 03/28/19 [History] Acetaminophen/HYDROcodone [[place] 325-5 MG] 1 tab PO Q4H PRN 03/28/19 [History] Aspirin [Adult Low Dose Aspirin EC] 81 mg PO DAILY 03/28/19 [History] Cephalexin [Keflex] 250 mg PO TID 03/28/19 [History] Cholecalciferol (Vitamin D3) [Vitamin D3] 5,000 unit PO DAILY 03/28/19 [History] Furosemide [Lasix] 60 mg PO DAILY 03/28/19 [History] Melatonin 3 - 9 mg PO BEDTIME PRN 03/28/19 [History] Metoprolol Tartrate [Lopressor] 37.5 mg PO Q12HR 03/28/19 [History] Nitroglycerin 0.4 mg SL ASDIRECTED PRN 03/28/19 [History] Potassium Chloride 20 meq PO Q2D 03/28/19 [History] Probiotic Advanced. 10 mg PO DAILY 03/28/19 [History] Sennosides [Senna] 8.6 - 17.2 mg PO DAILY PRN 03/28/19 [History] amLODIPine [Norvasc] 5 mg PO DAILY 03/28/19 [History] guaiFENesin [Mucinex] 600 mg PO DAILY PRN 03/28/19 [History] Oxygen Therapy Mode: Nasal Cannula Oxygen Flow Rate (L/min): 3 Forms: ED Department Discharge Referrals: Joslyn Alaniz MD [Primary Care Provider] - - Discharge Summary/Plan Comment DC Time >30 min.: Yes Discharge Summary/Plan Comment: transfer to [facility] in [place] secondary to needing higher level of care, worsening chronic renal insufficiency, CHF, and hypoxemia. - General Info Date of Service: 04/03/19 Admission Dx/Problem (Free Text: Bilateral pleural effusions CHF improvement Crackle bilateral in lungs Diminished breath sounds in left lung On oxygen going from 3L to 1L Pallor and 1+ edema Labs ordered and pending review Subjective Update: patient continues to need more oxygen and is more short of breath today. Functional Status: Reports: Pain Controlled - Review of Systems General: Reports: Fatigue Pulmonary: Reports: Shortness of Breath Cardiovascular: Reports: No Symptoms - Patient Data Vitals - Most Recent: Last Vital Signs Temp 98.1 F 04/03/19 07:01 Pulse 79 04/03/19 08:48 Resp 20 04/03/19 07:01 BP 146/63 H 04/03/19 08:48 Pulse Ox 90 L 04/03/19 08:56 Weight - Most Recent: 147 lb 11.2 oz I&O - Last 24 hours: Intake & Output 04/02/19 04/03/19 04/03/19 22:59 06:59 14:59 Intake Total 920 20 Balance 920 20 Lab Results - Last 24 hrs: Laboratory Results - last 24 hr 04/02/19 04/03/19 Range/Units 04:30 05:05 Sodium 132 L (136-145) mEq/L Potassium 5.0 (3.5-5.1) mEq/L Chloride 94 L (98-107) mEq/L Carbon Dioxide 27 (21-32) mEq/L Anion Gap 16.0 H (5-15) BUN 78 H (7-18) mg/dL Creatinine 3.1 H (0.55-1.02) mg/dL Est Cr Clr Drug Dosing 10.77 mL/min Estimated GFR (MDRD) 14 (>60) mL/min BUN/Creatinine Ratio 25.2 H (14-18) Glucose 126 H (83-115) mg/dL Calcium 8.8 (8.5-10.1) mg/dL Blood Type O POSITIVE Gel Antibody Screen Negative Crossmatch See Detail [facility] Results - Last 24 hrs: Microbiology 03/28/19 20:05 Aerobic Blood Culture - Preliminary Blood - Venous - Lab Draw NO GROWTH AFTER 5 DAYS Anaerobic Blood Culture - Preliminary NO GROWTH AFTER 5 DAYS 03/28/19 19:50 Aerobic Blood Culture - Preliminary Blood - Venous NO GROWTH AFTER 5 DAYS Anaerobic Blood Culture - Preliminary NO GROWTH AFTER 5 DAYS Med Orders - Current: Current Medications Acetaminophen (Tylenol) 650 mg PO Q6H PRN PRN Reason: Pain (mild 1-3) Hydrocodone Bitart/Acetaminophen ([place] 325-5 Mg) 1 tab PO Q4H PRN PRN Reason: Pain (moderate 4-6) Last Admin: 04/01/19 01:58 Dose: 1 tab Albuterol/Ipratropium (Duoneb 3.0-0.5 Mg/3 Ml) 3 ml NEB Q4H PRN PRN Reason: Shortness Of Breath/wheezing Last Admin: 04/03/19 08:55 Dose: 3 ml Aspirin (Halfprin) 81 mg PO DAILY PHUONG Last Admin: 04/03/19 08:47 Dose: 81 mg Bisacodyl (Dulcolax) 5 mg PO DAILY PRN PRN Reason: Constipation Cholecalciferol (Vitamin D3) 5,000 unit PO DAILY [facility] Last Admin: 04/03/19 08:49 Dose: 5,000 unit Docusate Sodium (Colace) 100 mg PO BID PRN PRN Reason: Constipation Last Admin: 03/30/19 21:52 Dose: 100 mg Guaifenesin (Mucinex) 600 mg PO DAILY PRN PRN Reason: Cough Last Admin: 03/30/19 21:52 Dose: 600 mg Hydromorphone HCl (Dilaudid) 0.25 mg IVPUSH Q2H PRN PRN Reason: Pain (severe 7-10) Last Admin: 03/30/19 11:28 Dose: 0.5 mg Promethazine HCl 6.25 mg/ (Sodium Chloride) 50.25 mls @ 100 mls/hr IV Q6H PRN PRN Reason: Nausea/Vomiting Lorazepam (Ativan) 2 mg IVPUSH Q4H PRN PRN Reason: Seizures Lorazepam (Ativan) 0.5 mg IVPUSH Q4H PRN; Protocol PRN Reason: Anxiety Last Admin: 04/03/19 12:56 Dose: 0.5 mg Melatonin (Melatonin) 3 - 9 mg PO BEDTIME PRN PRN Reason: Sleep Last Admin: 04/02/19 20:18 Dose: 3 mg Metoprolol Tartrate (Lopressor) 25 mg PO BID [facility] Last Admin: 04/03/19 08:48 Dose: 25 mg Morphine Sulfate (Morphine) 0.5 mg IVPUSH Q4H PRN PRN Reason: Dyspnea Last Admin: 03/29/19 23:40 Dose: 0.5 mg Multivitamins (Thera) 1 each PO DAILY [facility] Last Admin: 04/03/19 08:47 Dose: 1 each Nitroglycerin (Nitrostat) 0.4 mg SL ASDIRECTED PRN PRN Reason: Chest Pain Ondansetron HCl (Zofran) 4 mg IV Q6H PRN PRN Reason: Nausea/Vomiting Ondansetron HCl (Zofran Odt) 4 mg PO Q8H PRN PRN Reason: Nausea/Vomiting Polyethylene Glycol (Miralax) 17 gm PO DAILY PRN PRN Reason: Constipation Saccharomyces Boulardii (Florastor) 250 mg PO DAILY [facility] Last Admin: 04/03/19 08:47 Dose: 250 mg Senna (Senna) 8.6 - 17.2 mg PO DAILY PRN PRN Reason: Constipation Senna/Docusate Sodium (Senna Plus) 1 tab PO BID PRN PRN Reason: Constipation Sertraline HCl (Zoloft) 25 mg PO DAILY [facility] Last Admin: 04/03/19 08:49 Dose: 25 mg Sodium Chloride (Saline Flush) 10 ml FLUSH ASDIRECTED PRN PRN Reason: Keep Vein Open Last Admin: 03/31/19 01:42 Dose: 10 ml Temazepam (Restoril) 7.5 mg PO BEDTIME PRN PRN Reason: Insomnia Last Admin: 03/30/19 21:52 Dose: 7.5 mg Discontinued Medications Amlodipine Besylate (Norvasc) 5 mg PO DAILY [facility] Last Admin: 03/31/19 08:32 Dose: 5 mg Amlodipine Besylate (Norvasc) 2.5 mg PO DAILY [facility] Last Admin: 04/02/19 09:06 Dose: 2.5 mg Azithromycin (Zithromax) 250 mg PO DAILY [facility] Cephalexin (Keflex) 250 mg PO TID [facility] Stop: 03/29/19 23:00 Last Admin: 03/29/19 20:06 Dose: 250 mg Furosemide (Lasix) 40 mg IVPUSH NOW ONE Stop: 03/28/19 19:35 Last Admin: 03/28/19 20:02 Dose: 40 mg Furosemide (Lasix) 60 mg PO DAILY [facility] Last Admin: 03/31/19 08:29 Dose: 60 mg Furosemide (Lasix) 60 mg IVPUSH NOW ONE Stop: 03/28/19 21:32 Last Admin: 03/28/19 22:08 Dose: 60 mg Furosemide (Lasix) 40 mg PO DAILY [facility] Last Admin: 04/02/19 08:45 Dose: 40 mg Furosemide (Lasix) 40 mg IVPUSH NOW ONE Stop: 04/01/19 10:25 Last Admin: 04/01/19 10:56 Dose: 40 mg Furosemide (Lasix) 40 mg IVPUSH NOW ONE Stop: 04/01/19 17:01 Last Admin: 04/01/19 17:40 Dose: 40 mg Furosemide (Lasix) 40 mg IVPUSH DAILY PHUONG Guaifenesin/Phenylephrine HCl (Robitussin Dm) 5 ml PO Q6H PRN PRN Reason: cough Last Admin: 03/30/19 21:52 Dose: 5 ml Hydrochlorothiazide (Hydrochlorothiazide) 12.5 mg PO BIDDIURETIC PHUONG Stop: 04/02/19 06:01 Last Admin: 04/02/19 06:24 Dose: 12.5 mg Azithromycin 500 mg/ Sodium (Chloride) 250 mls @ 250 mls/hr IV ONETIME ONE Stop: 03/28/19 22:59 Last Admin: 03/28/19 23:08 Dose: 250 mls/hr Albumin Human (Flexbumin 25%) 12.5 gm in 50 mls @ 100 mls/hr IV ONETIME ONE Stop: 04/01/19 13:44 Last Admin: 04/01/19 15:53 Dose: Not Given Albumin Human (Flexbumin 25%) 12.5 gm in 50 mls @ 100 mls/hr IV Q1H PHUONG Stop: 04/01/19 20:59 Last Admin: 04/01/19 20:11 Dose: 100 mls/hr Albumin Human (Flexbumin 25%) 12.5 gm in 50 mls @ 100 mls/hr IV Q1H PHUONG Stop: 04/01/19 14:59 Last Admin: 04/01/19 14:40 Dose: 100 mls/hr Sodium Chloride (Normal Saline) 25 mls @ 25 mls/hr IV ASDIRECTED [facility] Sodium Chloride (Normal Saline) Confirm Administered Dose 50 mls @ as directed .ROUTE .STK-MED ONE Stop: 04/02/19 15:22 Last Admin: 04/02/19 15:30 Dose: Not Given Sodium Chloride (Normal Saline) 50 mls @ 25 mls/hr IV ASDIRECTED [facility] Last Admin: 04/02/19 15:33 Dose: 25 mls/hr Lidocaine HCl (Xylocaine 1%) 10 ml INJECT ONETIME ONE Stop: 03/29/19 09:01 Last Admin: 03/29/19 10:02 Dose: Not Given Lorazepam (Ativan) 0.25 mg IVPUSH ONETIME ONE Stop: 03/29/19 09:26 Last Admin: 03/29/19 10:01 Dose: Not Given Losartan Potassium (Cozaar) 25 mg PO DAILY PHUONG Last Admin: 04/02/19 09:06 Dose: 25 mg Losartan Potassium (Cozaar) 12.5 mg PO DAILY [facility] Metoprolol Tartrate (Lopressor) 37.5 mg PO Q12HR [facility] Last Admin: 04/02/19 09:07 Dose: 37.5 mg Non-Formulary Medication (Potassium Chloride [Potassium Chloride]) 20 meq PO Q2D [facility] Last Admin: 03/28/19 23:13 Dose: Not Given Ondansetron HCl (Zofran Odt) 8 mg PO BID@0700,1900 [facility] Stop: 04/02/19 19:00 Last Admin: 04/02/19 06:25 Dose: 8 mg Pantoprazole Sodium (Protonix Iv) 40 mg IV Q12H [facility] Last Admin: 03/29/19 06:32 Dose: 40 mg Pantoprazole Sodium (Protonix) 40 mg PO BID [facility] Last Admin: 04/02/19 08:45 Dose: 40 mg Potassium Chloride (Klor-Con M20) 20 meq PO Q2D [facility] Sertraline HCl (Zoloft) 50 mg PO DAILY [facility] Last Admin: 04/02/19 08:44 Dose: 50 mg - Exam Quality Assessment: Reports: Supplemental Oxygen General: Reports: Alert, Oriented HEENT: Reports: Pupils Equal Neck: Reports: Supple Lungs: Reports: Decreased Breath Sounds (bibasilar), Crackles, Rales Cardiovascular: Reports: Regular Rhythm, Tachycardia GI/Abdominal Exam: Normal Bowel Sounds, Soft, Non-Tender, No Distention Skin: Reports: Warm, Dry, Intact
[2019-04-03 14:40] VITALS: BP 120/78; PULSE 76
== END 2019-04-03 14:45 | DRG 291 ==
LOC: JD.ED 19:04 → JD.ICU 22:01 → JD.MS 04-03 05:00
PROVIDERS: ADMIT Internal Medicine; ATTEND Internal Medicine
PROC: 0W9B3ZZ Drainage of Left Pleural Cavity, Percutaneous Approach (ICD-10-PCS; principal; 2019-03-30)
PROC: 0W993ZZ Drainage of Right Pleural Cavity, Percutaneous Approach (ICD-10-PCS; 2019-03-30)
DX: I13.0 Hypertensive heart and chronic kidney disease with heart failure and stage 1 through stage 4 chronic kidney disease, or unspecified chronic kidney disease (principal); I50.33 Acute on chronic diastolic (congestive) heart failure; E43 Unspecified severe protein-calorie malnutrition; J90 Pleural effusion, not elsewhere classified; N18.4 Chronic kidney disease, stage 4 (severe); R09.02 Hypoxemia; J98.11 Atelectasis; I87.2 Venous insufficiency (chronic) (peripheral); I08.3 Combined rheumatic disorders of mitral, aortic and tricuspid valves; E11.22 Type 2 diabetes mellitus with diabetic chronic kidney disease; D64.9 Anemia, unspecified; M19.90 Unspecified osteoarthritis, unspecified site; J44.9 Chronic obstructive pulmonary disease, unspecified; I25.10 Atherosclerotic heart disease of native coronary artery without angina pectoris; E87.6 Hypokalemia; E11.65 Type 2 diabetes mellitus with hyperglycemia; F41.9 Anxiety disorder, unspecified; E77.8 Other disorders of glycoprotein metabolism; Z95.1 Presence of aortocoronary bypass graft; Z79.82 Long term (current) use of aspirin; Z79.899 Other long term (current) drug therapy; Z88.2 Allergy status to sulfonamides; Z88.5 Allergy status to narcotic agent; Z88.8 Allergy status to other drugs, medicaments and biological substances; Z90.49 Acquired absence of other specified parts of digestive tract; Z68.25 Body mass index [BMI] 25.0-25.9, adult
CPT/HCPCS: 36415; 36430; 71045; 71045-26; 76942; 80048; 80053; 81001; 82553; 82607; 83036; 83540; 83605; 83735; 83880; 84484; 85007; 85025; 85027; 85610; 85730; 86140; 86850; 86900; 86901; 86922; 87040; 87641; 93005; 93010; 93306; 94640; 94760; 96374; 96376; 97110-GP; 97116-GP; 97162-GP; 97165-GO; 99285; 99285-25; A9270-GY; C1729; C9113; J0456; J1170; J1940; J2060; J2270; J7050; J7620-GY; P9016; P9047